=== PATIENT | male | born 1945 | race Caucasian/White ===

== ENCOUNTER 2016-12-28 08:33 | Inpatient (IN) ==
[2016-12-28] MEDS ORDERED: SODIUM CHLORIDE 0.9% 1,000 ML IV STA ×2 (09:57→11:33)
[2016-12-28] MEDS ORDERED: ONDANSETRON 4 MG/2 ML VIAL IV STA (09:57)
[2016-12-28] MEDS ORDERED: ONDANSETRON 4 MG/2 ML VIAL ONE (10:12)
[2016-12-28 11:07] LABS: Basophils % 0.3 % (0.0-0.8); Eosinophils # 0.1 10*3/uL (0.0-0.87); Eosinophils % 1.3 % (0.00-10.9); Hematocrit 37.6 VOL% (42.0-52.0); Hemoglobin 12.5 GM/DL (14.0-18.0); Immature Granulocytes Absolute 0.08 #; Lymphocytes # 1.5 10*3/uL (1.4-4.0); Lymphocytes % 19.8 % (21.2-54.2); Mean Corpuscular HGB Conc 33.2 GM/DL (32-36); Mean Corpuscular Hemoglobin 30 PG (27-34); Mean Corpuscular Volume 88.9 FL (87-102); Monocytes # 1.3 10*3/uL (0.11-0.8); Monocytes % 17.6 % (1.7-12.7); Neutrophils # 4.6 10*3/uL (1.4-7.4); Platelet Count 137 T/CUMM (130-400); Red Blood Count 4.23 MC/CUMM (3.8-5.5); Red Cell Distribution Width 12.2 % (9.3-17.3); White Blood Count 7.6 T/CUMM (4-12)
[2016-12-28 11:23] LABS: Albumin 2.6 G/DL (3.4-5.0); Bilirubin,Total 0.4 MG/DL (0.2-1.0); Calcium 8.2 MG/DL (8.5-10.1); Osmolality,Calculated 280.3 MOS/KG (273-304); Potassium 3.7 MMOL/L (3.5-5.1); Total Protein 6.5 G/DL (6.4-8.3)
[2016-12-28 11:44] LABS: Eosinophils 1 % (0-10); Lymphocytes 20 % (20-55); Segmented Neutrophils 67 % (50-85); Total Cells Counted 100
[2016-12-28 11:45] LABS: Hypochromasia 1+; Platelet Estimate Adequate
--- NOTE | 2016-12-28 12:15 | Emergency Department Note ---
Henry Beltran Hilary, am scribing for, and in the presence of, Yosi Gregorio MD 09:50. Darline Beltran Charles R, MD, personally performed the services described in this documentation, ascribed by Judy Figueroa in my presence, and it is both accurate and complete 215 . Arrival - Arrival Chief Complaint: Nausea/Vomiting/Diarrhea Stated Complaint: n/v,dehydrated X one week ED Nursing Triage Note: C/o N/V/D-onset one week ago. Reports generalized weakness. Last chemo 3 weeks ago. States this is his third visit for same c/o. Mode of Arrival: Wheelchair Limitations: No Limitations Source: Patient, RN Notes Reviewed Time Seen by Provider: 12/28/16 09:16 - History of Present Illness HPI Narrative: Pt is a 71 y/o male presenting to the ED with c/o vomiting which onset a week ago. Pt states that he was having trouble urinating and so he went to [place] ED and had a catheter in and since he has been vomiting. He confirms vomiting 15 times a day, nausea, diarrhea and has gone back to [place] ED twice with no relief. No other complaints or problems stated in the ED. Pt has a PMHx of HTN and Lung CA. Onset (ago): day(s) Consistency: constant Severity: moderate Severity scale (1-10): 2 Allergies/Adverse Reactions: Allergies Allergy/AdvReac Type Severity Reaction Status Date / Time Penicillins Allergy HIVES Verified 10/30/15 19:39 promethazine [From Phenergan] AdvReac Hallucinati Verified 10/30/15 19:39 ng Home Medications: Home Medications Medication Instructions Recorded Confirmed Type Aspirin [Ecotrin] 81 mg PO DAILY 10/30/15 12/28/16 History Clopidogrel [Plavix] 75 mg PO DAILY 10/30/15 12/28/16 History Terazosin [Hytrin] 2 mg PO BEDTIME 10/30/15 12/28/16 History traMADol TAB [Ultram] 50 mg PO Q6H PRN 10/30/15 12/28/16 History Folic Acid Tab 1 mg PO DAILY 12/28/16 12/28/16 History Metoclopramide Tab [Reglan Tab] 10 mg PO Q6HR 12/28/16 12/28/16 History Prochlorperazine Tab [Compazine 10 mg PO Q6H PRN 12/28/16 12/28/16 History Tab] Zolpidem Tartrate [Zolpidem 10 mg PO BEDTIME 12/28/16 12/28/16 History Tartrate] Review of System - Review of System 12 point system: reviewed and no additional remarkable complaints except as stated - Review of System Constitutional: Absent: fever Gastrointestinal: Present: nausea, vomiting, diarrhea. Absent: abdominal pain Medical,Surgical,& Family Hx - Medical History Cardio: History of: Hypertension Respiratory: History of: Lung Cancer (x2) Gastrointestinal: History of: GERD, GI Problems (prior colon ca) - Surgical History Cardiac Surgeries: Sugical HX of: Cardiac Surgery (cabg 2003) Thoracic Surgeries: Surgical HX of;: Lobectomy (right center and top lob removed 2013) Abdominal Surgeries: Surgical HX of: Appendectomy - Social History Smoking Status: Former smoker Frequency of Alcohol Use: None Type of Drug Use: None Exam Vital Signs: Vital Signs Temperature 98.1 F 12/28/16 08:54 Pulse Rate 80 12/28/16 12:00 Respiratory Rate 18 12/28/16 12:00 Blood Pressure 128/56 12/28/16 12:00 O2 Sat by Pulse Oximetry 100 12/28/16 12:00 - General General appearance: alert, in no apparent distress - Head Head exam: Present: atraumatic, normocephalic - Eye Eye exam: Present: PERRL, EOMI. Absent: normal appearance (sunken orbitals) - ENT ENT exam: Present: mucous membranes dry, TM's normal bilaterally. Absent: mucous membranes moist - Neck Neck exam: Present: full ROM, trachea midline. Absent: tenderness - Chest Chest inspection: Present: symmetric chest wall rise. Absent: tenderness - Respiratory Respiratory exam: Absent: normal lung sounds bilaterally (decreased lung sounds ), respiratory distress - Cardiovascular Cardiovascular exam: Present: regular rate, normal rhythm, normal heart sounds. Absent: murmur, rubs, gallop - Abdominal Exam Abdominal exam: Present: soft, normal bowel sounds. Absent: distention, tenderness - Extremities Exam Extremities exam: Present: full ROM. Absent: tenderness, pedal edema - Back Exam Back exam: Present: full ROM, tenderness - Neurological Exam Neurological exam: Present: alert, oriented X3, CN II-XII intact. Absent: motor sensory deficit - Psychiatric Psychiatric exam: Present: normal affect, normal mood - Skin Skin exam: Present: warm, dry, intact, normal color, other (poor skin turgor). Absent: rash Course - Consultations Consultation #1: Dr Kimball will admit patient for nausea vomiting Time: 12:23 Results - Labs CBC & BMP: 12/28/16 09:36 12/28/16 09:36 Lab Results: I have reviewed the patients labs Labs: Laboratory Tests 12/28/16 12/28/16 09:36 09:36 WBC 7.6 RBC 4.23 Hgb 12.5 L Hct 37.6 L Plt Count 137 Lymph % (Auto) 19.8 L [place] % (Auto) 17.6 H [place] # (Auto) 1.3 H Magnesium 2.5 H Laboratory Tests 12/28/16 12/28/16 09:36 09:36 Total Counted 100 Segmented Neutrophils 67 Lymphocytes 20 Monocytes 12 Eosinophils 1 Platelet Estimate Adequate Hypochromasia 1+ Sodium 141 Potassium 3.7 Chloride 105 Carbon Dioxide 28 BUN 14 Calcium 8.2 L ALT 15 L Total Protein 6.5 Albumin 2.6 L Globulin 3.9 H Albumin/Globulin Ratio 0.6 L Disposition Clinical Impression: History of lung cancer, Intractable nausea and vomiting Case discussed with: patient, patient's family Disposition: Still a Patient Condition: Stable Time of Disposition: 12:23
--- NOTE | 2016-12-28 13:40 | CT Report ---
CT of the head without contrast. Indication: Generalized weakness. Nausea and vomiting. History of lung cancer. There is heavy calcific plaque present within the intracranial internal carotid arteries. There is generalized prominence of the ventricles and sulci consistent with atrophy of aging. There are areas of low density in the periventricular white matter consistent with chronic microvascular ischemia. There is no mass effect, midline shift, or area of acute hemorrhage. The calvarium is intact. The mastoid air cells are clear. Mild mucosal thickening in the ethmoid sinuses. Impression: Mild paranasal sinus disease. Aging changes of the brain. The CT exam was performed using one or more of the following dose reduction techniques: Automated exposure control, adjustment of the mA and/or kV according to patient size, or use of iterative reconstruction technique. PROCEDURE INTERPRETED AT [facility] DEPARTMENT OF RADIOLOGY Final Report Signed by: Dr. Shelby Dwyer
[2016-12-28 13:46] LABS: Troponin I Only < 0.015 NG/ML (0.00-0.045)
[2016-12-28] MEDS ORDERED: BENZTROPINE 2 MG/2 ML AMP IV PRN (14:22)
[2016-12-28] MEDS ORDERED: LACTULOSE 20 GM/30 ML UDCUP PO PRN (14:22)
[2016-12-28] MEDS ORDERED: TEMAZEPAM 7.5 MG CAPSULE PO PRN (14:22)
[2016-12-28] MEDS ORDERED: ONDANSETRON 4 MG/2 ML VIAL IV PRN (14:22)
[2016-12-28] MEDS ORDERED: PROCHLORPERAZINE 10 MG TABLET PO PRN (14:22)
[2016-12-28] MEDS ORDERED: LOPERAMIDE 2 MG CAPSULE PO PRN ×2 (14:22)
[2016-12-28] MEDS ORDERED: ALUMINUM/MAGNES/SIMETH MAX STR 30 ML UDCUP PO PRN (14:22)
[2016-12-28] MEDS ORDERED: ACETAMINOPHEN 325 MG TABLET PO PRN (14:22)
[2016-12-28] MEDS ORDERED: MAGNESIUM HYDROXIDE SUSP 30 ML UDCUP PO PRN (14:22)
[2016-12-28] MEDS ORDERED: diphenhydrAMINE CAP 25 MG CAPSULE PO PRN (14:22)
[2016-12-28] MEDS ORDERED: guaiFENesin 200 MG/10 ML UDCUP PO PRN (14:22)
[2016-12-28] MEDS ORDERED: traMADol 50 MG TABLET PO PRN ×2 (14:22)
[2016-12-28] MEDS ORDERED: MYLANTA/LIDO VISC 2:1 300 ML BOTTLE SWISH/SWAL PRN (14:22)
[2016-12-28] MEDS ORDERED: MYLANTA/LIDO VISC 2:1 300 ML BOTTLE SWISH/SPIT PRN (14:22)
[2016-12-28] MEDS ORDERED: ALPRAZolam 0.25 MG TABLET PO PRN (14:22)
[2016-12-28] MEDS: SODIUM CHLORIDE 0.9% 1,000 ML IV SCH (14:44)
--- NOTE | 2016-12-28 14:59 | EKG Report ---
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
[2016-12-28 15:28] LABS: Basophils % 0.1 % (0.0-0.8); Eosinophils # 0.1 10*3/uL (0.0-0.87); Eosinophils % 1.4 % (0.00-10.9); Hemoglobin 12.2 GM/DL (14.0-18.0); Immature Granulocytes % 0.9 %; Immature Granulocytes Absolute 0.06 #; Lymphocytes # 1.4 10*3/uL (1.4-4.0); Mean Corpuscular Hemoglobin 30 PG (27-34); Mean Corpuscular Volume 89.4 FL (87-102); Mean Platelet Volume 9.7 FL (9.6-12.0); Monocytes # 1.1 10*3/uL (0.11-0.8); Neutrophils # 4.3 10*3/uL (1.4-7.4); Neutrophils % 61.6 % (38.7-73.9); Platelet Count 155 T/CUMM (130-400); Red Blood Count 4.14 MC/CUMM (3.8-5.5); Red Cell Distribution Width 12.1 % (9.3-17.3); White Blood Count 6.9 T/CUMM (4-12)
[2016-12-28 15:54] LABS: Magnesium 2.2 MG/DL (1.8-2.4)
[2016-12-28 15:56] LABS: Albumin 2.6 G/DL (3.4-5.0); Bilirubin,Total 0.4 MG/DL (0.2-1.0); Calcium 7.6 MG/DL (8.5-10.1); Osmolality,Calculated 279.3 MOS/KG (273-304); Potassium 3.8 MMOL/L (3.5-5.1); Total Protein 6.2 G/DL (6.4-8.3)
[2016-12-28] MEDS ORDERED: DEXAMETHASONE 4 MG/1 ML VIAL IV ONE (16:36)
[2016-12-28] MEDS ORDERED: FOSAPREPITANT 150 MG in SODIUM CHLORIDE 0.9% 100 ML IV ONE (17:30)
[2016-12-28 17:34] LABS: Band Neutrophils 1 % (0-10); Eosinophils 2 % (0-10); Lymphocytes 17 % (20-55); Platelet Estimate Normal; Segmented Neutrophils 73 % (50-85); Total Cells Counted 100
[2016-12-28] MEDS: METOCLOPRAMIDE 10 MG TABLET PO SCH ×2 (18:50→23:52)
[2016-12-28 19:59] LABS: Apearance,Urine CLEAR (Clear); Bilirubin,Urine Negative (Negative); Blood, Urine Negative (Negative); Glucose,Urine (UA) Negative (Negative); Hyaline Casts,Urine 1 /LPF (0-3); Ketones,Urine 5 mg/dL (Negative); Mucus,Urine Occasional /LPF (Occasional); Nitrite,Urine Negative (Negative); Protein,Urine Negative; RBC,Urine 7 /HPF (0-4); Squamous Epithelial Cell,Urine Occasional /HPF (0-10); Urine Color Yellow (Yellow); Urine Specific Gravity 1.017 (1.001-1.035); Urine Urobilinogen < 2.0 EU/DL (0.2-1.0); WBC,Urine 2 /HPF (0-6)
[2016-12-28] MEDS: TERAZOSIN 2 MG CAPSULE PO SCH (20:47)
[2016-12-28] MEDS ORDERED: ZALEPLON 5 MG CAPSULE PO SCH (21:00)
[2016-12-29 05:12] LABS: Basophils % 0.2 % (0.0-0.8); Hematocrit 38.1 VOL% (42.0-52.0); Hemoglobin 12.7 GM/DL (14.0-18.0); Immature Granulocytes Absolute 0.05 #; Lymphocytes # 0.4 10*3/uL (1.4-4.0); Lymphocytes % 8.3 % (21.2-54.2); Mean Corpuscular HGB Conc 33.3 GM/DL (32-36); Mean Corpuscular Hemoglobin 30 PG (27-34); Mean Corpuscular Volume 88.6 FL (87-102); Mean Platelet Volume 9.8 FL (9.6-12.0); Monocytes # 0.1 10*3/uL (0.11-0.8); Neutrophils # 4.5 10*3/uL (1.4-7.4); Neutrophils % 88.5 % (38.7-73.9); Platelet Count 188 T/CUMM (130-400); Red Cell Distribution Width 12.1 % (9.3-17.3); White Blood Count 5.1 T/CUMM (4-12)
[2016-12-29] MEDS: SODIUM CHLORIDE 0.9% 1,000 ML IV SCH ×2 (05:19→17:56)
[2016-12-29] MEDS: METOCLOPRAMIDE 10 MG TABLET PO SCH ×4 (05:26→23:32)
[2016-12-29 06:24] LABS: Band Neutrophils 1 % (0-10); Hypochromasia 1+; Lymphocytes 8 % (20-55); Microcytosis 2+; Platelet Estimate Adequate; Segmented Neutrophils 87 % (50-85); Total Cells Counted 100
--- NOTE | 2016-12-29 06:56 | CT Report ---
CT abdomen pelvis w con Indication: Nausea vomiting abdominal pain, history of lung cancer Comparison: None. Technique: CT of the abdomen and pelvis was performed following administration of intravenous contrast. Coronal and sagittal reformatted images were additionally created and submitted for review. The total DLP is 553.9 mGy*cm. Dose reduction: This CT exam was performed using one or more of the following dose reduction techniques: Automated exposure control, automated adjustment of the mA and/or KV according to patient size, or use of iterative reconstruction technique. Findings: Soft tissue densities within the right lung base appear essentially unchanged from prior and may represent focal atelectasis/scarring or neoplasm. Minimal posterior basilar atelectasis otherwise noted. There is no pleural or pericardial effusion. Median sternotomy wiring is partially imaged. ABDOMEN: Liver/Gallbladder: No abnormal enhancing hepatic lesions. There is no biliary ductal dilatation. No gallstones. Gallbladder is not dilated. Portal vein is patent. Spleen: No acute findings. Pancreas: No acute findings. Adrenals: Within normal limits in appearance. Kidneys: Both kidneys enhance symmetrically. There is normal excretion from both kidneys on delayed images. Both kidneys demonstrate multifocal hypodense lesions which are primarily cortically-based/exophytic and most compatible with cysts. Bowel/mesentery: Small bowel is nondilated. There is no free fluid/air within the abdomen. There is moderate stool throughout the colon which is otherwise unremarkable except for mild gaseous distention noted within the mid abdomen. There is no mesenteric adenopathy. Retroperitoneum: No evidence of aortic aneurysm or significant retroperitoneal adenopathy. PELVIS: No free fluid in the dependent pelvis. No adenopathy. There is marked enlargement of the prostate gland measuring up to 6 cm in the axial plane, which is similar to prior. Bladder is mildly distended but otherwise unremarkable. BONES: No acute or suspicious osseous abnormalities are identified. IMPRESSION: 1. No acute abnormality within the abdomen or pelvis to explain patient's symptoms. 2. Soft tissue density within the right lung base may represent focal atelectasis/scarring or soft tissue lesion. Correlate with history of lung cancer 3. Moderate gaseous distention of colon which is otherwise displaces the filled with stool may represent changes of fecal stasis/constipation. 4. Marked prostatomegaly, similar to prior. 12/29/2016 6:47 AM PROCEDURE INTERPRETED AT [facility] [place] DEPARTMENT OF RADIOLOGY Final Report Signed by: Иван Cool
[2016-12-29] MEDS ORDERED: BISACODYL 5 MG TABLET PO ONE (07:30)
--- NOTE | 2016-12-29 08:09 | Oncology History&Physical ---
Assessment and Plan (1) Intractable nausea and vomiting Status: Acute Assessment and plan: His symptoms have significantly improved since admission. There is no obvious etiology at this time. I again explained to him that this would be extremely rare for these symptoms to develop after 1 dose of Alimta. We will at least keep him in the hospital for another 24 hours for IV fluids and close observation. If he is doing this well tomorrow we could consider discharge home. I do not see a reason to consult GI at this time. If his nausea and vomiting return, I will then reconsider consulting him. Current Visit: Yes (2) History of lung cancer Status: Acute Current Visit: Yes History of Present Illness History of present illness: Mr. Hester is a 71 year old male with metastatic lung cancer who is currently receiving palliative chemotherapy. He was recently started on a new agent called Alimta 2 weeks ago. Shortly after starting Alimta he developed severe nausea and vomiting with weakness which has persisted for almost 2 weeks now. This is highly uncommon with this chemo agent. His symptoms sound most consistent with a GI bug that is unusual for a viral issue to last for 2 weeks. All of his lab work is normal. CT of his head was negative for intracranial metastasis yesterday. He states he feels much better today after receiving IV fluids and parenteral antiemetics. A CT of his abdomen this morning showed no obvious pathology. Home Medications Medication Instructions Recorded Confirmed Type Aspirin [Ecotrin] 81 mg PO DAILY 10/30/15 12/28/16 History Clopidogrel [Plavix] 75 mg PO DAILY 10/30/15 12/28/16 History Terazosin [Hytrin] 2 mg PO BEDTIME 10/30/15 12/28/16 History traMADol TAB [Ultram] 50 mg PO Q6H PRN 10/30/15 12/28/16 History Folic Acid Tab 1 mg PO DAILY 12/28/16 12/28/16 History Metoclopramide Tab [Reglan Tab] 10 mg PO Q6HR PRN 12/28/16 12/28/16 History Prochlorperazine Tab [Compazine 10 mg PO Q6H PRN 12/28/16 12/28/16 History Tab] Zolpidem Tartrate [Zolpidem 10 mg PO BEDTIME PRN 12/28/16 12/28/16 History Tartrate] Allergies Allergy/AdvReac Type Severity Reaction Status Date / Time Penicillins Allergy HIVES Verified 10/30/15 19:39 promethazine [From Phenergan] AdvReac Hallucinati Verified 10/30/15 19:39 ng Medical,Surgical,& Family Hx - Medical History Cardio: History of: Hypertension Respiratory: History of: Lung Cancer (x2) Gastrointestinal: History of: GERD, GI Problems (prior colon ca) - Surgical History Cardiac Surgeries: Sugical HX of: Cardiac Surgery (cabg 2003) Thoracic Surgeries: Surgical HX of;: Lobectomy (right center and top lob removed 2013) Abdominal Surgeries: Surgical HX of: Appendectomy - Social History Smoking Status: Former smoker Frequency of Alcohol Use: None Type of Drug Use: None 12 point system: reviewed and no additional remarkable complaints except as stated - Constitutional Constitutional: Present: fatigue - Gastrointestinal Gastrointestinal: Present: diarrhea, nausea, vomiting. Absent: melena Exam - Constitutional Vitals: Period Temp Pulse Resp BP Sys/Herr Pulse Ox Last 24 Hr 97.2 F-98.3 F 80-104 18-20 93-160/49-75 94-100 General appearance: normal weight, no acute distress - Head Head Exam: Present: normocephalic, atraumatic - Eye Eye Exam: Present: EOMI Pupils: Present: PERRL - ENT ENT exam: Present: normal exam, normal oropharynx - Neck Neck exam: Absent: lymphadenopathy, thyromegaly - Respiratory Respiratory exam: Present: CTAB. Absent: wheezes - Cardiovascular Cardiovascular exam: Present: RRR. Absent: JVD, systolic murmur - GI/Abdominal GI/Abdominal exam: Present: soft. Absent: ascites, distended, firm, mass - Neurological Exam Neurological exam: Present: alert, oriented X3 - Psychiatric Psychiatric exam: Present: normal affect, normal mood - Skin Skin exam: Present: warm, dry Results - Labs CBC & BMP: 12/29/16 04:28 12/28/16 15:14 Lab Results: I have reviewed the past 24 hour labs
[2016-12-29] MEDS: FOLIC ACID 1 MG TABLET PO SCH ×2 (08:55→09:30)
[2016-12-29] MEDS: PANTOPRAZOLE 40 MG VIAL IV SCH (08:55)
[2016-12-29] MEDS: CLOPIDOGREL 75 MG TABLET PO SCH ×2 (08:55→09:30)
[2016-12-29] MEDS: ASPIRIN EC 81 MG TABLET PO SCH ×2 (08:55→09:30)
[2016-12-29] MEDS: TERAZOSIN 2 MG CAPSULE PO SCH (20:47)
[2016-12-29] MEDS ORDERED: CLOPIDOGREL 75 MG TABLET PO SCH (21:00)
[2016-12-29] MEDS ORDERED: ASPIRIN EC 81 MG TABLET PO SCH (21:00)
[2016-12-29] MEDS ORDERED: FOLIC ACID 1 MG TABLET PO SCH (21:00)
[2016-12-30 02:27] LABS: Basophils % 0.1 % (0.0-0.8); Hematocrit 32.5 VOL% (42.0-52.0); Immature Granulocytes % 1.3 %; Immature Granulocytes Absolute 0.17 #; Lymphocytes # 0.9 10*3/uL (1.4-4.0); Lymphocytes % 6.5 % (21.2-54.2); Mean Corpuscular HGB Conc 33.8 GM/DL (32-36); Mean Corpuscular Hemoglobin 29 PG (27-34); Mean Corpuscular Volume 86.9 FL (87-102); Mean Platelet Volume 10.1 FL (9.6-12.0); Monocytes # 1.4 10*3/uL (0.11-0.8); Monocytes % 10.1 % (1.7-12.7); Neutrophils # 11.2 10*3/uL (1.4-7.4); Platelet Count 286 T/CUMM (130-400); Red Blood Count 3.74 MC/CUMM (3.8-5.5); White Blood Count 13.6 T/CUMM (4-12)
[2016-12-30] MEDS: METOCLOPRAMIDE 10 MG TABLET PO SCH (05:45)
[2016-12-30 08:17] VITALS: BP 133/68
[2016-12-30] MEDS: SODIUM CHLORIDE 0.9% 1,000 ML IV SCH (08:31)
--- NOTE | 2016-12-30 08:35 | Discharge Summary ---
Hospital Course - Hospital Course Hospital Course: Mr. Hester is a 71-year-old white male with metastatic lung cancer currently on second line palliative chemotherapy. He received his first dose of Alimta approximately 2-1/2 weeks ago. Shortly after the Alimta he developed severe nausea and vomiting with weakness that lasted for approximately 2 weeks. His symptoms were more in line with viral gastroenteritis. We attempted to manage him as an outpatient but he required admission to the hospital 3 days ago for IV fluids and treatment of intractable nausea vomiting. With aggressive IV fluid and parenteral antiemetics, his condition rapidly improved. I did a CT of his abdomen to rule out any type of intra-abdominal pathology and it was negative. He is scheduled to have chemotherapy next week and have encouraged him to keep this appointment. He is scheduled to see me in 4 weeks in clinic for routine follow-up. - Time spent with patient Time with patient DS: Greater than 30 minutes Diagnosis - Discharge Diagnosis (1) Intractable nausea and vomiting Status: Acute (2) History of lung cancer Status: Acute Specialty Discharge - Follow Up or Referrals Follow up with: Stephan Kimball MD [Physician] - Discharge Plan - Discharge Data Disposition: Disch To Home/Self Care Condition at Discharge: Stable Hygiene: no restrictions Weight Bearing at Discharge: full weight bearing Driving: no restrictions - Discharge Medications Continue traMADol TAB [Ultram] 50 mg PO Q6H PRN PRN Reason: Pain Clopidogrel [Plavix] 75 mg PO DAILY Aspirin [Ecotrin] 81 mg PO DAILY Terazosin [Hytrin] 2 mg PO BEDTIME Prochlorperazine Tab [Compazine Tab] 10 mg PO Q6H PRN PRN Reason: Nausea/Vomiting Folic Acid Tab 1 mg PO DAILY Zolpidem Tartrate 10 mg PO BEDTIME PRN PRN Reason: Sleep Metoclopramide Tab [Reglan Tab] 10 mg PO Q6HR PRN PRN Reason: Nausea - Follow Up or Referral Follow Up: Stephan Kimball MD [Physician] - - Forms/Instructions Exam - Constitutional Vitals: Period Temp Pulse Resp BP Sys/Herr Pulse Ox Last 24 Hr 97.2 F-98.1 F 69-80 18-20 121-144/61-68 94-97 Discharge Results Labs on day of discharge: Labs from last 24 hours 12/30/16 12/30/16 08:01 01:21 WBC 13.6 H D RBC 3.74 L Hgb 11.0 L Hct 32.5 L MCV 86.9 L MCH 29 MCHC 33.8 RDW 12.0 Plt Count 286 D MPV 10.1 Neut % (Auto) 82.0 H Lymph % (Auto) 6.5 L [place] % (Auto) 10.1 Eos % (Auto) 0.0 Baso % (Auto) 0.1 Neut # (Auto) 11.2 H Lymph # (Auto) 0.9 L [place] # (Auto) 1.4 H Eos # (Auto) 0.0 Baso # (Auto) 0.0 Immature Gran % 1.3 Nucleated RBC % 0.0 Immature Gran # 0.17 Nucleated RBCs # 0.00 POC Glucose 124 H DS: Provider Date of admission: 12/28/16 13:08 Primary care physician: . No PCP Attending physician on admission: Stephan Kimball MD Consults: 12/28/16 15:33 Consult to Dietitian [CONS] Routine Reason for Dietitian: Diet Instruction Discharging clinician: Stephan Kimball MD
[2016-12-30] MEDS ORDERED: HEPARIN LOCK FLUSH 500 UNIT/5 ML SYRINGE IV PRN (08:38)
[2016-12-30] MEDS: PANTOPRAZOLE 40 MG VIAL IV SCH (09:34)
== END 2016-12-30 11:00 | disposition home or self-care (01) | DRG 392 ==
LOC: N.ED 08:33 → N.EDINP 13:08 → N.4E 14:00
PROVIDERS: ADMIT Specialist; ATTEND Specialist

== ENCOUNTER 2017-01-03 16:38 | Inpatient (IN) ==
[2017-01-03] MEDS ORDERED: LACTATED RINGERS 1,000 ML IV ONE (17:05)
[2017-01-03] MEDS ORDERED: ONDANSETRON 4 MG/2 ML VIAL IV STA (17:06)
[2017-01-03] MEDS ORDERED: ONDANSETRON 4 MG/2 ML VIAL ONE (17:51)
[2017-01-03 18:00] LABS: Amorphous Crystals,Urine Occasional /HPF (Few); Apearance,Urine CLEAR (Clear); Bacteria,Urine Occasional /HPF (Few); Bilirubin,Urine Negative (Negative); Blood, Urine Negative (Negative); Glucose,Urine (UA) Negative (Negative); Ketones,Urine Negative (Negative); Mucus,Urine Occasional /LPF (Occasional); Nitrite,Urine Negative (Negative); Protein,Urine Negative; RBC,Urine 2 /HPF (0-4); Urine Color Yellow (Yellow); Urine Specific Gravity 1.016 (1.001-1.035); Urine Urobilinogen < 2.0 EU/DL (0.2-1.0); WBC,Urine 1 /HPF (0-6)
[2017-01-03 18:05] LABS: Barbiturates Screen,Urine Negative (Negative); Benzodiazepines Screen,Urine Positive (Negative); Cannabinoid Screen,Urine Negative (Negative); Opiate Screen,Urine Negative (Negative); Phencyclidine Screen,Urine Negative (Negative)
[2017-01-03 18:12] LABS: Basophils % 0.3 % (0.0-0.8); Eosinophils # 0.2 10*3/uL (0.0-0.87); Eosinophils % 1.6 % (0.00-10.9); Hematocrit 40.7 VOL% (42.0-52.0); Hemoglobin 13.2 GM/DL (14.0-18.0); Immature Granulocytes % 2.2 %; Lymphocytes # 1.5 10*3/uL (1.4-4.0); Lymphocytes % 16.2 % (21.2-54.2); Mean Corpuscular HGB Conc 32.4 GM/DL (32-36); Mean Corpuscular Hemoglobin 29 PG (27-34); Mean Corpuscular Volume 90.4 FL (87-102); Mean Platelet Volume 8.9 FL (9.6-12.0); Monocytes # 1.9 10*3/uL (0.11-0.8); Neutrophils # 5.4 10*3/uL (1.4-7.4); Neutrophils % 58.7 % (38.7-73.9); Platelet Count 677 T/CUMM (130-400); Red Cell Distribution Width 13.2 % (9.3-17.3); White Blood Count 9.3 T/CUMM (4-12)
[2017-01-03 18:34] LABS: Eosinophils 2 % (0-10); Lymphocytes 15 % (20-55); Macrocytosis Slight; Platelet Estimate Increased; Segmented Neutrophils 68 % (50-85); Total Cells Counted 100
[2017-01-03 18:36] LABS: Albumin 3.1 G/DL (3.4-5.0); Bilirubin,Total 0.8 MG/DL (0.2-1.0); Calcium 8.8 MG/DL (8.5-10.1); Osmolality,Calculated 271.8 MOS/KG (273-304); Potassium 4.2 MMOL/L (3.5-5.1); Total Protein 7.3 G/DL (6.4-8.3)
[2017-01-03] MEDS ORDERED: metroNIDAZOLE INJ 500 MG in PREMIX 1 EACH IV STA (19:24)
--- NOTE | 2017-01-03 19:25 | Emergency Department Note ---
I, Pattie Walton, am scribing for, and in the presence of, Artemio Rosario MD 17:12. IAbraham Hans, MD, personally performed the services described in this documentation, ascribed by Pattie Walton in my presence, and it is both accurate and complete . Arrival - Arrival Chief Complaint: Nausea/Vomiting/Diarrhea Stated Complaint: DEHYDRATED, VOMITING ED Nursing Triage Note: c/o n/v onset about 2 and half weeks ago. pt has admit in the hospital monday of last week for the same thing. pt was also seen monday and monday night for the same thing. pt states is worse now. last chemo was [address] coello said that the n/v was not because of the chemo meds Mode of Arrival: Wheelchair Limitations: No Limitations Source: Patient Time Seen by Provider: 01/03/17 16:59 - History of Present Illness HPI Narrative: Pt is a 71 y/o male who came to ED with c/o N/V/D and generalized weakness that has been ongoing for 2 weeks now. Pt notes having diarrhea, for the past 3-4 days, that is light brown with foul smell and clear emesis, but denies blood in either. Pt reports not able to walk much due to severe weakness. Pt has lung CA and last chemo tx was 3 weeks ago. Pt was hospitalized one week ago for 3 days and d/c home. He was also in the ED Monday and again on Monday for the same sxs as today, in which was found to have anxiety of general dx of lung CA. Pt states Dr. Coello told him the dosage of chemo he is on should not make him have these sxs. Pt denies hx of bacteria in colon but did have colon CA in the past. CT chest on 01/01/17 showed: No evidence of pulmonary embolism with suboptimal contrast in the subsegmental pulmonary arteries. Status post median sternotomy with coronary artery calcifications. The wall of the esophagus appears more thickened in the mild esophagus appears more thickened in the mid esophagus location which could be related to esophagitis, radiation effect, etc. Progressive bullous emphysema with chronic scarring in patient with prior right thoractomy. Progressive parenchymal findings which could be related to pneumonia but it is difficult to exclude progressive pleural based masses and follow up PET/CT may be helpful for further evaluation in patient with carcinoma of the lung. ) Onset (ago): week(s) Consistency: constant Severity: mild Severity scale (1-10): 3 Quality: aching Allergies/Adverse Reactions: Allergies Allergy/AdvReac Type Severity Reaction Status Date / Time Penicillins Allergy HIVES Verified 01/01/17 10:54 promethazine [From Phenergan] AdvReac Hallucinati Verified 01/01/17 10:54 ng Home Medications: Home Medications Medication Instructions Recorded Confirmed Type Aspirin [Ecotrin] 81 mg PO DAILY 10/30/15 01/03/17 History Clopidogrel [Plavix] 75 mg PO DAILY 10/30/15 01/03/17 History Terazosin [Hytrin] 2 mg PO BEDTIME 10/30/15 01/03/17 History traMADol TAB [Ultram] 50 mg PO Q6H PRN 10/30/15 01/03/17 History Folic Acid Tab 1 mg PO DAILY 12/28/16 01/03/17 History Metoclopramide Tab [Reglan Tab] 10 mg PO Q6HR PRN 12/28/16 01/03/17 History Prochlorperazine Tab [Compazine 10 mg PO Q6H PRN 12/28/16 01/03/17 History Tab] Zolpidem Tartrate 10 mg PO BEDTIME PRN 12/28/16 01/03/17 History ALPRAZolam [Xanax] 0.25 mg PO DAILY PRN #20 tablet 01/01/17 01/03/17 Rx Review of System - Review of System 12 point system: reviewed and no additional remarkable complaints except as stated - Review of System Constitutional: Present: weakness (generalized). Absent: fever Respiratory: Absent: respiratory distress Cardiovascular: Absent: chest pain Gastrointestinal: Present: nausea, vomiting, diarrhea. Absent: abdominal pain, constipation, hematemesis, melena Genitourinary male: Absent: hematuria Skin: Absent: rash Neurological: Present: abnormal gait (due to weakness). Absent: headache, numbness, paresthesias, confusion Medical,Surgical,& Family Hx - Medical History Cardio: History of: CAD, Hypertension Neurology: No history of: Cerebral Hemorrhage Endocrine: No history of: Diabetes Mellitus (IDDM), Diabetes Mellitus (NIDDM) Respiratory: History of: COPD, Lung Cancer (x2) No history of: Pulmonary Embolism Renal: No history of: Renal Failure Genitourinary: No history of: Problems Gastrointestinal: History of: GERD, GI Problems (prior colon ca) Musculoskeletal: No history of: Degenerative Disk Disease Hematology: No history of: Bleeding Problems, Clotting Problems - Surgical History Cardiac Surgeries: Sugical HX of: Cardiac Surgery (cabg 2003) Thoracic Surgeries: Surgical HX of;: Lobectomy (right center and top lob removed 2013) Neurologic Surgeries: Patient denies: Cerebral Hemorrhage Abdominal Surgeries: Surgical HX of: Appendectomy, Colonoscopy - Family History Family History: Denies;: Family Cancer - Social History Smoking Status: Former smoker Frequency of Alcohol Use: None Type of Drug Use: None Marital Status: Single Functional capacity: independent ambulation Exam Vital Signs: Vital Signs Temperature 98.0 F 01/03/17 17:01 Pulse Rate 93 H 01/03/17 18:00 Respiratory Rate 18 01/03/17 18:00 Blood Pressure 115/70 01/03/17 18:00 O2 Sat by Pulse Oximetry 95 01/03/17 18:00 - General General appearance: alert, in no apparent distress - Head Head exam: Present: atraumatic, normocephalic - Eye Eye exam: Present: PERRL, EOMI - ENT ENT exam: Present: mucous membranes moist. Absent: mucous membranes dry - Neck Neck exam: Present: full ROM. Absent: tenderness - Chest Chest inspection: Present: symmetric chest wall rise. Absent: tenderness - Respiratory Respiratory exam: Present: normal lung sounds bilaterally. Absent: respiratory distress - Cardiovascular Cardiovascular exam: Present: regular rate, normal rhythm, normal heart sounds - Abdominal Exam Abdominal exam: Present: soft, normal bowel sounds. Absent: distention, tenderness, guarding, rebound - Extremities Exam Extremities exam: Present: full ROM. Absent: tenderness, pedal edema - Neurological Exam Neurological exam: Present: alert, oriented X3, CN II-XII intact. Absent: motor sensory deficit - Psychiatric Psychiatric exam: Present: normal affect, normal mood - Skin Skin exam: Present: warm, dry Course Course Narrative: This patient was evaluated in the ER with lab work as well as urinalysis and plain films of the abdomen and chest. There is nothing acute that was seen on these tests but he was having some diarrhea and a C. difficile was ordered but not done because he did not have any diarrhea in the ER. Because of the severity of his nausea and some enteritis on the x-ray I discussed this with Dr. Dang who agreed to admit him for IV fluids and treatment with Flagyl until the C. difficile has returned. The patient will be admitted to the oncology floor. Results - Labs CBC & BMP: 01/03/17 17:46 01/03/17 17:46 Lab Results: I have reviewed the patients labs Labs: Laboratory Tests 01/03/17 01/03/17 01/03/17 17:46 17:46 17:46 WBC 9.3 RBC 4.50 Hgb 13.2 L Hct 40.7 L Plt Count 677 H MPV 8.9 L Lymph % (Auto) 16.2 L [place] % (Auto) 21.0 H [place] # (Auto) 1.9 H Urine Color Yellow Urine Appearance Clear Urine pH 6.0 Ur Specific [place] 1.016 Urine Blood Negative Urine Urobilinogen < 2.0 H Urine RBC 2 Urine WBC 1 Amorphous Crystals Occasional Urine Bacteria Occasional Urine Mucus Occasional U Benzodiazepines Scrn Positive H Laboratory Tests 01/03/17 01/03/17 17:46 17:46 Lymphocytes 15 L Platelet Estimate Increased Macrocytosis Slight Sodium 137 Potassium 4.2 Chloride 104 Carbon Dioxide 25 Calculated Osmolality 271.8 L Albumin 3.1 L Globulin 4.2 H Albumin/Globulin Ratio 0.7 L Lipase 196.0 Disposition Clinical Impression: Gastroenteritis, Dehydration, History of lung cancer, Intractable nausea and vomiting Case discussed with: patient, patient's family Disposition: Still a Patient Condition: Stable Instructions: Dehydration (ED), Gastroenteritis (ED) Time of Disposition: 19:25
--- NOTE | 2017-01-03 19:38 | XRay Report ---
XR abdomen 2V Indication: Nausea Comparison: Abdominal x-ray dated October 30, 2015 Technique: Frontal views of the abdomen in the supine and upright position. Findings: Nonspecific bowel gas pattern. Scattered air-fluid levels within the small bowel as well as mild to moderate gaseous distention of the transverse colon could reflect gastroenteritis. No free intraperitoneal air. Several small calcific densities project over the right lower quadrant of the abdomen which most likely reflect ingested contents. Surgical suture material and clips noted within the left midabdomen. Visualized osseous and surrounding soft tissue structures appear grossly unchanged. IMPRESSION: As above. PROCEDURE INTERPRETED AT [facility] DEPARTMENT OF RADIOLOGY Final Report Signed by: Dr Miguel A Lemus
--- NOTE | 2017-01-03 19:48 | XRay Report ---
XR chest 2V Indication: Nausea Comparison: Chest x-ray dated March 04, 2017 Technique: Frontal and lateral views of the chest. Findings: Cardiomediastinal silhouette is stable in configuration status post sternotomy. Port catheter appears grossly unchanged with tip projecting or the proximal SVC. Stable changes of prior partial right pneumonectomy again noted with stable right apical capping. Chronic/emphysematous change of the lungs present. There is mild left infrahilar opacification which may reflect atelectasis or early consolidative process such as pneumonia. Visualized osseous and surrounding soft tissue structures appear grossly unchanged. IMPRESSION: Mild left infrahilar opacification suspicious for atelectasis or early consolidative process such as pneumonia. PROCEDURE INTERPRETED AT [facility] DEPARTMENT OF RADIOLOGY Final Report Signed by: Dr Miguel A Lemus
[2017-01-03] MEDS ORDERED: chlorproMAZINE INJ 25 MG in SODIUM CHLORIDE 0.9% 100 ML IV PRN (21:07)
[2017-01-03] MEDS ORDERED: chlorproMAZINE INJ 50 MG in SODIUM CHLORIDE 0.9% 100 ML IV PRN (21:07)
[2017-01-03] MEDS ORDERED: diphenhydrAMINE CAP 25 MG CAPSULE PO PRN (21:07)
[2017-01-03] MEDS ORDERED: ALPRAZolam 0.25 MG TABLET PO PRN (21:07)
[2017-01-03] MEDS ORDERED: guaiFENesin 200 MG/10 ML UDCUP PO PRN (21:07)
[2017-01-03] MEDS ORDERED: LOPERAMIDE 2 MG CAPSULE PO PRN (21:07)
[2017-01-03] MEDS ORDERED: LACTULOSE 20 GM/30 ML UDCUP PO PRN (21:07)
[2017-01-03] MEDS ORDERED: chlorproMAZINE 25 MG TABLET PO PRN (21:07)
[2017-01-03] MEDS ORDERED: MYLANTA/LIDO VISC 2:1 300 ML BOTTLE SWISH/SPIT PRN (21:07)
[2017-01-03] MEDS ORDERED: MYLANTA/LIDO VISC 2:1 300 ML BOTTLE SWISH/SWAL PRN (21:07)
[2017-01-03] MEDS ORDERED: ACETAMINOPHEN 325 MG TABLET PO PRN (21:07)
[2017-01-03] MEDS ORDERED: MAGNESIUM HYDROXIDE SUSP 30 ML UDCUP PO PRN (21:07)
[2017-01-03] MEDS ORDERED: ONDANSETRON 4 MG/2 ML VIAL IV PRN (21:07)
[2017-01-03] MEDS ORDERED: BENZTROPINE 2 MG/2 ML AMP IV PRN (21:07)
[2017-01-03] MEDS ORDERED: traMADol 50 MG TABLET PO PRN (21:07)
[2017-01-03] MEDS: SODIUM CHLORIDE 0.9% 1,000 ML IV SCH (21:30)
[2017-01-03] MEDS: LOPERAMIDE 2 MG CAPSULE PO PRN (21:30)
[2017-01-03] MEDS: TEMAZEPAM 7.5 MG CAPSULE PO PRN (22:26)
[2017-01-04] MEDS: metroNIDAZOLE INJ 500 MG in PREMIX 1 EACH IV SCH ×3 (03:44→20:50)
[2017-01-04] MEDS: ALUMINUM/MAGNES/SIMETH MAX STR 30 ML UDCUP PO PRN (03:52)
[2017-01-04 06:00] LABS: Basophils % 0.2 % (0.0-0.8); Eosinophils # 0.2 10*3/uL (0.0-0.87); Hematocrit 36.5 VOL% (42.0-52.0); Hemoglobin 12.1 GM/DL (14.0-18.0); Immature Granulocytes % 2.3 %; Immature Granulocytes Absolute 0.21 #; Lymphocytes # 1.6 10*3/uL (1.4-4.0); Lymphocytes % 17.4 % (21.2-54.2); Mean Corpuscular HGB Conc 33.2 GM/DL (32-36); Mean Corpuscular Hemoglobin 30 PG (27-34); Mean Corpuscular Volume 90.3 FL (87-102); Mean Platelet Volume 8.7 FL (9.6-12.0); Monocytes % 22.2 % (1.7-12.7); Neutrophils # 5.1 10*3/uL (1.4-7.4); Neutrophils % 55.9 % (38.7-73.9); Platelet Count 573 T/CUMM (130-400); Red Blood Count 4.04 MC/CUMM (3.8-5.5); Red Cell Distribution Width 13.4 % (9.3-17.3); White Blood Count 9.1 T/CUMM (4-12)
[2017-01-04 06:27] LABS: Band Neutrophils 3 % (0-10); Eosinophils 2 % (0-10); Lymphocytes 13 % (20-55); Platelet Estimate Increased; Segmented Neutrophils 65 % (50-85); Total Cells Counted 100
[2017-01-04 06:28] LABS: Hypochromasia Slight; Macrocytosis Slight
[2017-01-04 06:33] LABS: Alanine Aminotransferase 21 U/L (16-61); Albumin 2.8 G/DL (3.4-5.0); Alkaline Phosphatase 87 U/L (45-117); Aspartate Amino Transferase 21 U/L (0-37); Bilirubin,Total < 0.39 MG/DL (0.2-1.0); Blood Urea Nitrogen 12 MG/DL (7-18); Calcium 8.3 MG/DL (8.5-10.1); Glucose 85 MG/DL (74-106); Magnesium 2.6 MG/DL (1.8-2.4); Osmolality,Calculated 275.5 MOS/KG (273-304); Sodium 139 MMOL/L (136-145); Total Protein 6.4 G/DL (6.4-8.3)
[2017-01-04] MEDS ORDERED: PANTOPRAZOLE 40 MG VIAL IV SCH (09:00)
[2017-01-04] MEDS ORDERED: METOCLOPRAMIDE 10 MG TABLET PO PRN (09:17)
[2017-01-04] MEDS ORDERED: PROCHLORPERAZINE 10 MG TABLET PO PRN (09:17)
[2017-01-04] MEDS ORDERED: ALPRAZolam 0.25 MG TABLET PO PRN (09:17)
[2017-01-04] MEDS ORDERED: ZALEPLON 5 MG CAPSULE PO PRN (09:17)
[2017-01-04] MEDS ORDERED: traMADol 50 MG TABLET PO PRN (09:17)
--- NOTE | 2017-01-04 09:24 | Oncology History&Physical ---
Assessment and Plan (1) Lung cancer Status: Acute Assessment and plan: This patient has generalized and nonspecific symptoms. I will evaluate for an occult endocrinopathy given the history of immunotherapy with TSH and cortisol levels today. His tilt blood pressure testing appears normal. No significant lab abnormalities are appreciated. I will give IV fluids and oral diet as tolerated. We briefly discussed nasogastric feeding though he seemed to decline this. Current Visit: Yes History of Present Illness Chief complaint: Weakness History of present illness: Mr. Hester is a 71 year old male With right sided lung cancer under treatment by Dr. quijano. The patient reports his last chemotherapy with pemetrexed around January 15 2 weeks ago. Prior to that he received 3-1/2 months of immunotherapy without Depo. His disease seems confined to the right lung with prior thoracotomy performed by Dr. Che. He apparently had a CT scan in late November though this must of been at [facility] and this is not available to me at this time. He was told there was progression hence the change back to cytotoxic chemotherapy from immunotherapy. Over the last 3 weeks he reports losing 20 pounds of weight. He has had some mild abdominal pain he denies diarrhea or nausea at the present time. Within the last 10 days he is undergone head CT as well as CT chest PE protocol both at [facility]. He was not admitted on that particular occurrence. He does not appear in acute distress but does report basically generalized weakness. He cannot he cannot be any more localizing in his descriptions than that. He does appear lucid and cooperative. Home Medications Medication Instructions Recorded Confirmed Type Aspirin [Ecotrin] 81 mg PO DAILY 10/30/15 01/03/17 History Clopidogrel [Plavix] 75 mg PO DAILY 10/30/15 01/03/17 History Terazosin [Hytrin] 2 mg PO BEDTIME 10/30/15 01/03/17 History traMADol TAB [Ultram] 50 mg PO Q6H PRN 10/30/15 01/03/17 History Folic Acid Tab 1 mg PO DAILY 12/28/16 01/03/17 History Metoclopramide Tab [Reglan Tab] 10 mg PO Q6HR PRN 12/28/16 01/03/17 History Prochlorperazine Tab [Compazine 10 mg PO Q6H PRN 12/28/16 01/03/17 History Tab] Zolpidem Tartrate 10 mg PO BEDTIME PRN 12/28/16 01/03/17 History ALPRAZolam [Xanax] 0.25 mg PO DAILY PRN #20 tablet 01/01/17 01/03/17 Rx Allergies Allergy/AdvReac Type Severity Reaction Status Date / Time Penicillins Allergy HIVES Verified 01/01/17 10:54 promethazine [From Phenergan] AdvReac Hallucinati Verified 01/01/17 10:54 ng Medical,Surgical,& Family Hx - Medical History Cardio: History of: CAD, Hypertension Neurology: No history of: Cerebral Hemorrhage Endocrine: No history of: Diabetes Mellitus (IDDM), Diabetes Mellitus (NIDDM) Respiratory: History of: COPD, Lung Cancer (x2) No history of: Pulmonary Embolism Renal: No history of: Renal Failure Genitourinary: No history of: Problems Gastrointestinal: History of: GERD, GI Problems (prior colon ca) Musculoskeletal: No history of: Degenerative Disk Disease Hematology: No history of: Bleeding Problems, Clotting Problems - Surgical History Cardiac Surgeries: Sugical HX of: Cardiac Surgery (cabg 2003) Thoracic Surgeries: Surgical HX of;: Lobectomy (right center and top lob removed 2013) Neurologic Surgeries: Patient denies: Cerebral Hemorrhage Abdominal Surgeries: Surgical HX of: Abdominal Surgery, Appendectomy, Colonoscopy - Family History Family History: Denies;: Family Cancer - Social History Smoking Status: Former smoker Frequency of Alcohol Use: None Type of Drug Use: None - Constitutional Constitutional: Present: fatigue, weakness, weight loss. Absent: chills, fever( s), night sweats, weight gain - EENT Eye: Absent: diplopia, loss of vision Ears: Absent: ear discharge, ear pain Nose, mouth and throat: Absent: neck mass, neck pain, odynophagia, sore throat - Cardiovascular Cardiovascular ROS IM: Absent: edema, orthopnea - Respiratory Respiratory: Absent: hemoptysis - Gastrointestinal Gastrointestinal: Present: early satiety. Absent: dysphagia, melena - Neurological Neurological ROS: Absent: dizziness, focal weakness, memory loss - Hematologic/Lymphatic Hematologic/Lymphatic: Absent: easy bleeding Exam - Constitutional Vitals: Period Temp Pulse Resp BP Sys/Herr Pulse Ox Last 24 Hr 98 F-98.5 F 85-99 18-20 102-135/56-85 93-97 General appearance: no acute distress, under weight - Head Head Exam: Present: normal inspection, normocephalic, atraumatic, other ( Positive temporal wasting) - Eye Eye Exam: Present: EOMI. Absent: conjunctival injection Pupils: Present: PERRL - ENT ENT exam: Present: normal external ear exam - Neck Neck exam: Present: normal inspection. Absent: lymphadenopathy - Respiratory Respiratory exam: Present: CTAB. Absent: accessory muscle use, chest wall tenderness - Cardiovascular Cardiovascular exam: Present: RRR. Absent: systolic murmur - GI/Abdominal GI/Abdominal exam: Absent: ascites, distended, firm, guarding - Neurological Exam Neurological exam: Present: alert, oriented X3 - Skin Skin exam: Present: warm, dry Results - Labs CBC & BMP: 01/04/17 05:52 01/04/17 05:52
[2017-01-04 09:55] LABS: Free T4 (Free Thyroxine) 1.26 NG/DL (0.76-1.46); Thyroid Stimulating Hormone 2.7 uIU/ml (0.358-3.74)
[2017-01-04] MEDS: CLOPIDOGREL 75 MG TABLET PO SCH (10:31)
[2017-01-04] MEDS: ASPIRIN EC 81 MG TABLET PO SCH (10:32)
[2017-01-04] MEDS: FOLIC ACID 1 MG TABLET PO SCH (10:32)
[2017-01-04] MEDS: LOPERAMIDE 2 MG CAPSULE PO PRN (16:52)
[2017-01-04] MEDS: TEMAZEPAM 7.5 MG CAPSULE PO PRN (20:50)
[2017-01-04] MEDS: SODIUM CHLORIDE 0.9% 1,000 ML IV SCH (20:50)
[2017-01-04] MEDS: TERAZOSIN 2 MG CAPSULE PO SCH (20:50)
[2017-01-05] MEDS: ALUMINUM/MAGNES/SIMETH MAX STR 30 ML UDCUP PO PRN (00:29)
[2017-01-05] MEDS: metroNIDAZOLE INJ 500 MG in PREMIX 1 EACH IV SCH (03:54)
--- NOTE | 2017-01-05 08:47 | Oncology Progress Note ---
Assessment and Plan (1) Lung cancer Status: Acute Assessment and plan: This patient has generalized and nonspecific symptoms. I will evaluate for an occult endocrinopathy given the history of immunotherapy with TSH and cortisol levels today. His tilt blood pressure testing appears normal. No significant lab abnormalities are appreciated. I will give IV fluids and oral diet as tolerated. We briefly discussed nasogastric feeding though he seemed to decline this. Current Visit: Yes Oncology Subjective PN Interval history: Patient with non-small cell lung cancer admitted with generalized weakness. He is still having mild diarrhea. I am going to hold Reglan and add Protonix. We will change Flagyl to p.o. His thyroid and adrenal studies are normal. I anticipate discharge tomorrow. He has mild abdominal distention but no tenderness or guarding on palpation. Exam - Constitutional Vitals: Period Temp Pulse Resp BP Sys/Herr Pulse Ox Last 24 Hr 97.8 F-98.8 F 81-98 18-20 102-148/55-69 92-95 Results - Labs CBC & BMP: 01/04/17 05:52 01/04/17 05:52 Specialty Discharge - Follow Up or Referrals
[2017-01-05] MEDS: FOLIC ACID 1 MG TABLET PO SCH (09:34)
[2017-01-05] MEDS: CLOPIDOGREL 75 MG TABLET PO SCH (09:34)
[2017-01-05] MEDS: ASPIRIN EC 81 MG TABLET PO SCH (09:34)
[2017-01-05] MEDS: PANTOPRAZOLE 40 MG TABLET PO SCH (09:34)
[2017-01-05] MEDS: metroNIDAZOLE 500 MG TABLET PO SCH ×3 (10:18→22:42)
[2017-01-05] MEDS: SODIUM CHLORIDE 0.9% 1,000 ML IV SCH (17:40)
[2017-01-05] MEDS: TERAZOSIN 2 MG CAPSULE PO SCH (20:13)
[2017-01-05] MEDS: TEMAZEPAM 7.5 MG CAPSULE PO PRN (20:18)
[2017-01-06] MEDS: metroNIDAZOLE 500 MG TABLET PO SCH ×5 (03:43→21:00)
[2017-01-06] MEDS: FOLIC ACID 1 MG TABLET PO SCH (08:38)
[2017-01-06] MEDS: PANTOPRAZOLE 40 MG TABLET PO SCH (08:38)
[2017-01-06] MEDS: CLOPIDOGREL 75 MG TABLET PO SCH (08:38)
[2017-01-06] MEDS: ASPIRIN EC 81 MG TABLET PO SCH (08:39)
--- NOTE | 2017-01-06 09:19 | Discharge Summary ---
Hospital Course - Hospital Course Hospital Course: Patient with non-small cell lung cancer admitted with generalized weakness. He had some degree of abdominal pain as well. The patient was given metronidazole initially IV and p.o. He is tolerating regular diet with regular bowel function at this time. He had acceptable cortisol and TSH levels during this admission. He has received low rate IV fluids and plans are for discharge on the morning of 722. His physical exam shows clear breath sounds bilaterally. Appropriate mental status. Nontender abdomen with normoactive bowel sounds. No ascites no guarding or rebound Diagnosis - Discharge Diagnosis (1) Lung cancer Status: Acute Specialty Discharge - Follow Up or Referrals Discharge Plan - Discharge Medications No Action traMADol TAB [Ultram] 50 mg PO Q6H PRN PRN Reason: Pain Clopidogrel [Plavix] 75 mg PO DAILY Aspirin [Ecotrin] 81 mg PO DAILY Terazosin [Hytrin] 2 mg PO BEDTIME Prochlorperazine Tab [Compazine Tab] 10 mg PO Q6H PRN PRN Reason: Nausea/Vomiting Folic Acid Tab 1 mg PO DAILY ALPRAZolam [Xanax] 0.25 mg PO DAILY PRN #20 tablet PRN Reason: Anxiety Zolpidem Tartrate 10 mg PO BEDTIME PRN PRN Reason: Sleep Metoclopramide Tab [Reglan Tab] 10 mg PO Q6HR PRN PRN Reason: Nausea - Follow Up or Referral - Forms/Instructions Instructions: Dehydration (ED), Gastroenteritis (ED) Exam - Constitutional Vitals: Period Temp Pulse Resp BP Sys/Herr Pulse Ox Last 24 Hr 97.7 F-98.6 F 84-90 20-20 104-125/54-63 91-98 Discharge Results Procedures and tests throughout hospitalization: Pending Orders 01/03/17 17:05 Stool Culture/Campy/Yersinia Stat Labs on day of discharge: Preliminary micro results at discharge 01/04/17 11:45 Stool Culture - Preliminary Stool No enteric pathogens at 24 hrs DS: Provider Date of admission: 01/03/17 19:21 Primary care physician: . No PCP Attending physician on admission: Stephan Kimball MD Consults: 01/03/17 23:44 Consult to Dietitian [CONS] Routine Reason for Dietitian: Diet Recommendations Consult to Pastoral Services [CONS] Routine Comment: Pastoral Screen: Request Health Underwriter Visit Pastoral Screen Source of Request: Patient Discharging clinician: Paramjit Dang MD
[2017-01-06] MEDS: SODIUM CHLORIDE 0.9% 1,000 ML IV SCH ×2 (10:15→22:02)
[2017-01-06] MEDS: TERAZOSIN 2 MG CAPSULE PO SCH (20:16)
[2017-01-06] MEDS: TEMAZEPAM 7.5 MG CAPSULE PO PRN (20:19)
[2017-01-06] MEDS: ALUMINUM/MAGNES/SIMETH MAX STR 30 ML UDCUP PO PRN (23:41)
[2017-01-07] MEDS: metroNIDAZOLE 500 MG TABLET PO SCH (04:19)
[2017-01-07] MEDS: ASPIRIN EC 81 MG TABLET PO SCH (08:08)
[2017-01-07] MEDS: FOLIC ACID 1 MG TABLET PO SCH (08:08)
[2017-01-07] MEDS: CLOPIDOGREL 75 MG TABLET PO SCH (08:08)
[2017-01-07] MEDS: PANTOPRAZOLE 40 MG TABLET PO SCH (08:08)
[2017-01-07 08:16] VITALS: BP 128/61
[2017-01-07] MEDS ORDERED: HEPARIN LOCK FLUSH 500 UNIT/5 ML SYRINGE IV ONE (09:38)
== END 2017-01-07 10:10 | disposition home or self-care (01) | DRG 641 ==
LOC: N.ED 16:38 → N.EDINP 19:21 → N.4E 20:09
PROVIDERS: ADMIT Specialist; ATTEND Specialist

== ENCOUNTER 2017-03-15 18:43 | Inpatient (IN) ==
[2017-03-15] MEDS ORDERED: methylPREDNISolone SOD SUC 125 MG/2 ML VIAL IV STA (19:14)
[2017-03-15] MEDS ORDERED: ONDANSETRON 4 MG/2 ML VIAL IV STA (19:14)
[2017-03-15] MEDS ORDERED: SODIUM CHLORIDE 0.9% 1,000 ML IV STA (19:14)
[2017-03-15] MEDS ORDERED: ALBUTEROL 2.5 MG/3 ML NEB RESP TX SCH (19:30)
[2017-03-15] MEDS ORDERED: ONDANSETRON 4 MG/2 ML VIAL ONE (19:43)
[2017-03-15 19:59] LABS: INR 1.1; PT Patient Result 12.1 SECS
[2017-03-15 20:06] LABS: Basophils # 0.1 10*3/uL (0.0-0.2); Basophils % 2.1 % (0.0-0.8); Eosinophils # 0.1 10*3/uL (0.0-0.87); Eosinophils % 2.1 % (0.00-10.9); Hemoglobin 10.7 GM/DL (14.0-18.0); Immature Granulocytes % 0.5 %; Immature Granulocytes Absolute 0.03 #; Lymphocytes # 2.6 10*3/uL (1.4-4.0); Lymphocytes % 45.7 % (21.2-54.2); Mean Corpuscular HGB Conc 32.4 GM/DL (32-36); Mean Corpuscular Hemoglobin 30 PG (27-34); Mean Corpuscular Volume 92.7 FL (87-102); Monocytes # 1.4 10*3/uL (0.11-0.8); Neutrophils # 1.4 10*3/uL (1.4-7.4); Neutrophils % 24.6 % (38.7-73.9); Platelet Count 365 T/CUMM (130-400); Red Blood Count 3.56 MC/CUMM (3.8-5.5); Red Cell Distribution Width 14.5 % (9.3-17.3); White Blood Count 5.8 T/CUMM (4-12)
--- NOTE | 2017-03-15 20:10 | Emergency Department Note ---
IIsabelle Emily, am scribing for, and in the presence of, Yosi Gregorio MD 19: 23. Darline Beltran Charles R, MD, personally performed the services described in this documentation, ascribed by Pattie Walton in my presence, and it is both accurate and complete . Arrival - Arrival Chief Complaint: Shortness of Breath Stated Complaint: low bp and SOB ED Nursing Triage Note: pt to triage via wc with c/o having sob and low bp onset last night. pt does have stage 4 LUng Ca. Mode of Arrival: Wheelchair Limitations: No Limitations Source: Patient, Significant other Time Seen by Provider: 03/15/17 19:08 - History of Present Illness HPI Narrative: Pt is a 72 y/o male who came to ED with c/o low BP that has started last night that would not increase today and SOB started this afternoon. Pt reports vomiting when they were leaving the house to come to ED, in gross amount. Pt notes his BP was 90/40 this morning, then 94/50 but did not go any higher and has ate lunch. Spouse reports he has had diarrhea and a productive cough. Family reports him having an unsteady balance and he states having some dizziness but denies confusion. He has had decreased PO intake but had weight loss of 40 lbs during kidney infection 2 months ago. Pt was havig trouble urinating and was given a grossman cath by Dr. Rodriguez and self taught to do at home. He states at home replacing it once at home he was able to urinate profusely since and has been with cath since, that output is nml. PMhx of Stage IV Lung CA with two lobes bilaterally removed, undergoing chemo but no radiation. Spouse notes pt is sleeping more as well. Onset (ago): day(s) Consistency: constant Severity: mild, moderate Severity scale (1-10): 4 Quality: other (lowered) Allergies/Adverse Reactions: Allergies Allergy/AdvReac Type Severity Reaction Status Date / Time Penicillins Allergy HIVES Verified 02/03/17 05:16 promethazine [From Phenergan] AdvReac Hallucinati Verified 02/03/17 05:16 ng Home Medications: Home Medications Medication Instructions Recorded Confirmed Type Aspirin [Ecotrin] 81 mg PO BEDTIME 10/30/15 03/15/17 History Clopidogrel [Plavix] 75 mg PO BEDTIME 10/30/15 03/15/17 History Terazosin [Hytrin] 2 mg PO BEDTIME 10/30/15 03/15/17 History Diphenoxylate HCl/Atropine 1 each PO Q6H PRN 03/15/17 03/15/17 History [Diphenoxylate/Atropine 2.5-0.025 mg Tab] Ondansetron HCl [Ondansetron HCl] 8 mg PO Q8H PRN 03/15/17 03/15/17 History Review of System - Review of System 12 point system: reviewed and no additional remarkable complaints except as stated - Review of System Constitutional: Present: other (low BP). Absent: chills, fever Respiratory: Present: respiratory distress (SOB) Cardiovascular: Absent: chest pain Gastrointestinal: Present: nausea, vomiting, diarrhea. Absent: abdominal pain Genitourinary male: Absent: dysuria Musculoskeletal: Absent: arm pain Skin: Absent: rash Neurological: Present: abnormal gait (unsteady), other (dizziness). Absent: headache Medical,Surgical,& Family Hx - Medical History Cardio: History of: CAD, Hypertension, Cardiovascular Problems (open heart surgery 2002) Neurology: No history of: Cerebral Hemorrhage Endocrine: No history of: Diabetes Mellitus (IDDM), Diabetes Mellitus (NIDDM) Respiratory: History of: COPD, Lung Cancer (x2) No history of: Pulmonary Embolism Renal: No history of: Renal Failure Genitourinary: No history of: Problems Gastrointestinal: History of: GERD, GI Problems (prior colon ca) Musculoskeletal: No history of: Degenerative Disk Disease Hematology: No history of: Bleeding Problems, Clotting Problems - Surgical History Cardiac Surgeries: Sugical HX of: Cardiac Surgery (cabg 2003) Thoracic Surgeries: Surgical HX of;: Lobectomy (right center and top lob removed 2013) Neurologic Surgeries: Patient denies: Cerebral Hemorrhage Abdominal Surgeries: Surgical HX of: Abdominal Surgery, Appendectomy, Colonoscopy - Family History Family History: Denies;: Family Cancer - Social History Smoking Status: Former smoker Frequency of Alcohol Use: None Type of Drug Use: None Marital Status: Lives With:: Spouse Functional capacity: independent ambulation Exam Vital Signs: Vital Signs Temperature 98.7 F 03/15/17 19:01 Pulse Rate 104 H 03/15/17 21:00 Respiratory Rate 22 03/15/17 21:00 Blood Pressure 85/62 03/15/17 19:01 O2 Sat by Pulse Oximetry 86 L 03/15/17 21:00 - General General appearance: alert, other (weak in appearance with temporal wasting) - Head Head exam: Present: atraumatic, normocephalic - Eye Eye exam: Present: PERRL, EOMI, other (sunken orbits) - ENT ENT exam: Present: mucous membranes moist. Absent: mucous membranes dry - Neck Neck exam: Present: full ROM, trachea midline - Chest Chest inspection: Present: symmetric chest wall rise - Respiratory Respiratory exam: Present: rhonchi (in right side). Absent: normal lung sounds bilaterally (decreased breath sound on right side until nipple region and nml in lower) - Cardiovascular Cardiovascular exam: Present: tachycardia, normal heart sounds - Abdominal Exam Abdominal exam: Present: soft, normal bowel sounds. Absent: tenderness - Extremities Exam Extremities exam: Present: full ROM, other (general atrophy to extremities secondary to CA). Absent: pedal edema - Neurological Exam Neurological exam: Present: alert, oriented X3, CN II-XII intact - Psychiatric Psychiatric exam: Present: normal affect, normal mood - Skin Skin exam: Present: warm, dry Course - Consultations Consultation #1: Dr Dang will admit patient for Dr. Kimball Time: 22:47 Results - Labs CBC & BMP: 03/15/17 19:36 03/15/17 19:36 Lab Results: I have reviewed the patients labs Labs: Laboratory Tests 03/15/17 19:36 WBC 5.8 RBC 3.56 L Hgb 10.7 L Hct 33.0 L Plt Count 365 Neut % (Auto) 24.6 L [place] % (Auto) 25.0 H Baso % (Auto) 2.1 H [place] # (Auto) 1.4 H Laboratory Tests 03/15/17 03/15/17 19:36 19:36 Segmented Neutrophils 31 L Monocytes 20 H Basophils 3.0 H Platelet Estimate Adequate Hypochromasia Slight Creatinine 1.10 Lactic Acid 2.3 H Magnesium 2.5 H ALT 13 L Troponin I < 0.015 Albumin 2.4 L Globulin 5.6 H Albumin/Globulin Ratio 0.4 L Laboratory Tests 03/15/17 03/15/17 19:36 19:36 B-Natriuretic Peptide 95 Amylase 47 Lipase 201.0 Laboratory Tests 03/15/17 19:36 Urine Color Yellow Urine Appearance Slightly hazy Urine pH 6.0 Ur Specific [place] 1.021 Urine Protein 30 Urine Nitrate Negative Urine Urobilinogen 4.0 H Urine Leukocytes Small H Urine RBC 2 Urine WBC 107 Ur Squamous Epith Cells Occasional Ur Transition Epith Cell Occasional Calcium Oxalate Crystal Moderate Urine Mucus Occasional - Diagnostic Findings Procedure: Chest x-ray: report reviewed by me (No acute cardiopulmonary findings.) Critical Care Time Critical Care Time: Yes Total Critical Care Time: 60 Disposition Clinical Impression: History of lung cancer, Intractable nausea and vomiting, Dehydration, Lung cancer, UTI (urinary tract infection), Hypovolemia, Nausea vomiting and diarrhea , Debility, unspecified, Wasting syndrome, Weight loss, Exertional dyspnea, Generalized weakness Case discussed with: patient, patient's family Disposition: Still a Patient Condition: Guarded Time of Disposition: 22:49 Sepsis - Sepsis Classification of Sepsis: Sepsis - Physical Exam Respiratory exam: rhonchi Capillary Refill: Less Than 3 Seconds Cardiovascular exam: tachycardia Skin exam: normal color
[2017-03-15 20:18] LABS: Lactic Acid 2.3 MMOL/L (0.4-2.0)
[2017-03-15 20:20] LABS: Alanine Aminotransferase 13 U/L (16-61); Albumin 2.4 G/DL (3.4-5.0); Alkaline Phosphatase 77 U/L (45-117); Aspartate Amino Transferase 23 U/L (0-37); Bilirubin,Total < 0.39 MG/DL (0.2-1.0); Blood Urea Nitrogen 17 MG/DL (7-18); Calcium 8.7 MG/DL (8.5-10.1); Glucose 98 MG/DL (74-106); Magnesium 2.5 MG/DL (1.8-2.4); Osmolality,Calculated 278.5 MOS/KG (273-304); Sodium 139 MMOL/L (136-145); Troponin I Only < 0.015 NG/ML (0.00-0.045)
[2017-03-15] MEDS ORDERED: methylPREDNISolone SOD SUC 125 MG/2 ML VIAL ONE (20:26)
[2017-03-15 20:36] LABS: Eosinophils 2 % (0-10); Lymphocytes 44 % (20-55); Segmented Neutrophils 31 % (50-85); Total Cells Counted 100
[2017-03-15 20:37] LABS: Hypochromasia Slight; Platelet Estimate Adequate
[2017-03-15] MEDS ORDERED: METOCLOPRAMIDE 10 MG/2 ML VIAL IV STA (20:37)
[2017-03-15] MEDS ORDERED: METOCLOPRAMIDE 10 MG/2 ML VIAL ONE (20:37)
--- NOTE | 2017-03-15 20:48 | XRay Report ---
Portable chest Exam date: 03/15/2017 803 PM Indication: Shortness of breath, cough Comparison: January 03, 2017 Findings: Cardiomediastinal contours are stable with sternotomy wires and midline and no change in Chemo-Port placement. Stable postoperative changes throughout the right chest consistent with prior lobectomy. Lungs are clear bilaterally. No acute osseous abnormalities. Visualized upper abdomen demonstrates no acute pathology. Impression: No acute cardiopulmonary findings PROCEDURE INTERPRETED AT [facility] DEPARTMENT OF RADIOLOGY Final Report Signed by: Melissa Hilliard MD
[2017-03-15] MEDS ORDERED: LEVOFLOXACIN INJ 750 MG in PREMIX 1 EACH IV SCH (21:00)
[2017-03-15] MEDS ORDERED: AZITHROMYCIN INJ 500 MG in SODIUM CHLORIDE 0.9% 250 ML IV SCH (21:00)
[2017-03-15] MEDS ORDERED: LEVOFLOXACIN INJ 150 ML IV ONE (21:17)
[2017-03-15] MEDS ORDERED: AZITHROMYCIN 500 MG VIAL IV ONE (21:18)
[2017-03-15 21:48] LABS: Apearance,Urine Slightly Hazy (Clear); Bilirubin,Urine Negative (Negative); Blood, Urine Negative (Negative); Calcium Oxalate Crystals,Urine Moderate /HPF (Few); Glucose,Urine (UA) Negative (Negative); Ketones,Urine Negative (Negative); Mucus,Urine Occasional /LPF (Occasional); Nitrite,Urine Negative (Negative); Protein,Urine 30 MG/DL; RBC,Urine 2 /HPF (0-4); Squamous Epithelial Cell,Urine Occasional /HPF (0-10); Transitional Epi Cells,Urine Occasional /HPF (<1); Urine Color Yellow (Yellow); Urine Specific Gravity 1.021 (1.001-1.035); WBC,Urine 107 /HPF (0-6)
[2017-03-15] MEDS ORDERED: ALUMINUM/MAGNES/SIMETH MAX STR 30 ML UDCUP PO PRN (23:42)
[2017-03-15] MEDS ORDERED: NON-FORMULARY MEDICATION (Ondansetron Hcl [Ondansetron Hcl] 8 MG) PO PRN (23:42)
[2017-03-15] MEDS ORDERED: MAGNESIUM HYDROXIDE SUSP 30 ML UDCUP PO PRN (23:42)
[2017-03-15] MEDS ORDERED: ACETAMINOPHEN 325 MG TABLET PO PRN (23:42)
[2017-03-15] MEDS ORDERED: LOPERAMIDE 2 MG CAPSULE PO PRN ×2 (23:42)
[2017-03-15] MEDS ORDERED: MYLANTA/LIDO VISC 2:1 300 ML BOTTLE SWISH/SPIT PRN (23:42)
[2017-03-15] MEDS ORDERED: ALBUTEROL/IPRATROPIUM 3 ML NEB RESP TX PRN (23:42)
[2017-03-15] MEDS ORDERED: BENZTROPINE 2 MG/2 ML AMP IV PRN (23:42)
[2017-03-15] MEDS ORDERED: LACTULOSE 20 GM/30 ML UDCUP PO PRN (23:42)
[2017-03-15] MEDS ORDERED: DIPHENOXYLATE/ATROPINE 2.5-0.025 MG TABLET PO PRN (23:42)
[2017-03-15] MEDS ORDERED: MYLANTA/LIDO VISC 2:1 300 ML BOTTLE SWISH/SWAL PRN (23:42)
[2017-03-15] MEDS ORDERED: ONDANSETRON 4 MG/2 ML VIAL IV PRN (23:42)
[2017-03-15] MEDS ORDERED: guaiFENesin 200 MG/10 ML UDCUP PO PRN (23:42)
[2017-03-16] MEDS: TEMAZEPAM 7.5 MG CAPSULE PO PRN ×2 (00:03→20:48)
[2017-03-16] MEDS: SODIUM CHLORIDE 0.9% 1,000 ML IV SCH ×3 (00:05→20:03)
[2017-03-16 00:25] LABS: Basophils % 0.5 % (0.0-0.8); Hematocrit 31.4 VOL% (42.0-52.0); Immature Granulocytes % 0.9 %; Immature Granulocytes Absolute 0.04 #; Lymphocytes # 0.4 10*3/uL (1.4-4.0); Lymphocytes % 10.3 % (21.2-54.2); Mean Corpuscular HGB Conc 31.8 GM/DL (32-36); Mean Corpuscular Hemoglobin 30 PG (27-34); Mean Corpuscular Volume 94.3 FL (87-102); Mean Platelet Volume 9.9 FL (9.6-12.0); Monocytes # 0.3 10*3/uL (0.11-0.8); Neutrophils # 3.5 10*3/uL (1.4-7.4); Neutrophils % 81.3 % (38.7-73.9); Platelet Count 326 T/CUMM (130-400); Red Blood Count 3.33 MC/CUMM (3.8-5.5); Red Cell Distribution Width 14.4 % (9.3-17.3); White Blood Count 4.3 T/CUMM (4-12)
[2017-03-16 00:51] LABS: Albumin 2.3 G/DL (3.4-5.0); Bilirubin,Total 0.4 MG/DL (0.2-1.0); Calcium 8.2 MG/DL (8.5-10.1); Magnesium 2.1 MG/DL (1.8-2.4); Osmolality,Calculated 292.1 MOS/KG (273-304); Potassium 3.9 MMOL/L (3.5-5.1); Total Protein 6.8 G/DL (6.4-8.3); Uric Acid 3.9 MG/DL (3.5-7.2)
[2017-03-16] MEDS: traMADol 50 MG TABLET PO PRN (02:26)
[2017-03-16 05:23] LABS: Basophils % 0.2 % (0.0-0.8); Hemoglobin 9.2 GM/DL (14.0-18.0); Immature Granulocytes Absolute 0.04 #; Lymphocytes # 0.3 10*3/uL (1.4-4.0); Lymphocytes % 6.2 % (21.2-54.2); Mean Corpuscular HGB Conc 32.9 GM/DL (32-36); Mean Corpuscular Hemoglobin 30 PG (27-34); Mean Corpuscular Volume 92.1 FL (87-102); Mean Platelet Volume 10.2 FL (9.6-12.0); Monocytes # 0.1 10*3/uL (0.11-0.8); Monocytes % 2.2 % (1.7-12.7); Neutrophils # 3.8 10*3/uL (1.4-7.4); Neutrophils % 90.4 % (38.7-73.9); Platelet Count 301 T/CUMM (130-400); Red Blood Count 3.04 MC/CUMM (3.8-5.5); Red Cell Distribution Width 14.4 % (9.3-17.3); White Blood Count 4.2 T/CUMM (4-12)
[2017-03-16 05:28] LABS: INR 1.1; PT Patient Result 11.9 SECS; Partial Thromboplastin Time 33.1 SECS (0-40)
[2017-03-16 05:53] LABS: Albumin 2.1 G/DL (3.4-5.0); Bilirubin,Total 0.4 MG/DL (0.2-1.0); Calcium 8.1 MG/DL (8.5-10.1); Osmolality,Calculated 289.1 MOS/KG (273-304); Potassium 3.9 MMOL/L (3.5-5.1); Total Protein 6.7 G/DL (6.4-8.3)
--- NOTE | 2017-03-16 07:32 | XRay Report ---
History: Nausea, vomiting, diarrhea Date: 03/16/2017 Study: Flat and erect abdomen Comparison exam: January 03, 2017 There is no evidence of pneumoperitoneum. The bowel gas pattern is nonspecific without jess mechanical obstruction or gross mass lesion. There is a moderate amount of retained stool in the colon. Surgical clips overlie the left mid abdomen as before. There is mild lumbar spondylosis. Impression: No definite acute process compared to the previous study PROCEDURE INTERPRETED AT [facility] DEPARTMENT OF RADIOLOGY Final Report Signed by: Dr. Rima Stapleton
--- NOTE | 2017-03-16 08:09 | Oncology History&Physical ---
Assessment and Plan - Time spent with patient Time spent with patient: Greater than 30 minutes (1) Metastatic lung carcinoma Status: Acute Assessment and plan: We will continue with IV fluids. I will also continue steroids. He already received a dose of Levaquin last night so we will continue with this as well. I anticipate he will likely remain in the hospital for a few days. He still needs to strongly consider comfort measures only from this point forward. Current Visit: Yes (2) UTI (urinary tract infection) Status: Acute Current Visit: Yes (3) Debility, unspecified Status: Acute Current Visit: Yes (4) Weight loss Status: Acute Current Visit: Yes (5) Generalized weakness Status: Acute Current Visit: Yes History of Present Illness History of present illness: Mr. Hester is a 72 year old male metastatic lung adenocarcinoma who was initially treated with surgical resection of advanced disease but then developed relapse within 12 months. We attempted to treat him with chemotherapy and radiation initially but over the last few months his disease has progressed to the point where chemotherapy is his only option. He has deteriorated very rapidly in the last 3 months. I have numerous times recommended to him that we should do nothing but place him on hospice. He is adamant that he wants to continue on with chemotherapy. He received chemotherapy approximately 2 weeks ago. We are using Taxotere and Cyramza. He presented to the emergency room yesterday with shortness of breath and hypo- tension. He is also continue to lose weight and felt very weak. He still wants everything to be done for him. He was admitted for IV fluids and further observation. This morning he states he feels mildly better. His blood pressure is stable. He received a dose of Levaquin for his UTI. Home Medications Medication Instructions Recorded Confirmed Type Aspirin [Ecotrin] 81 mg PO BEDTIME 10/30/15 03/15/17 History Clopidogrel [Plavix] 75 mg PO BEDTIME 10/30/15 03/15/17 History Terazosin [Hytrin] 2 mg PO BEDTIME 10/30/15 03/15/17 History Diphenoxylate HCl/Atropine 1 each PO Q6H PRN 03/15/17 03/15/17 History [Diphenoxylate/Atropine 2.5-0.025 mg Tab] Ondansetron HCl [Ondansetron HCl] 8 mg PO Q8H PRN 03/15/17 03/15/17 History Allergies Allergy/AdvReac Type Severity Reaction Status Date / Time Penicillins Allergy HIVES Verified 02/03/17 05:16 promethazine [From Phenergan] AdvReac Hallucinati Verified 02/03/17 05:16 ng Medical,Surgical,& Family Hx - Medical History Cardio: History of: CAD, Hypertension, Cardiovascular Problems (open heart surgery 2002) Neurology: No history of: Cerebral Hemorrhage Endocrine: No history of: Diabetes Mellitus (IDDM), Diabetes Mellitus (NIDDM) Respiratory: History of: COPD, Lung Cancer (x2) No history of: Pulmonary Embolism Renal: No history of: Renal Failure Genitourinary: No history of: Problems Gastrointestinal: History of: GERD, GI Problems (prior colon ca) Musculoskeletal: No history of: Degenerative Disk Disease Hematology: No history of: Bleeding Problems, Clotting Problems Other: History of: Cancer (lung ca) - Surgical History Cardiac Surgeries: Sugical HX of: Cardiac Surgery (cabg 2003) Thoracic Surgeries: Surgical HX of;: Lobectomy (right center and top lob removed 2013) Neurologic Surgeries: Patient denies: Cerebral Hemorrhage Abdominal Surgeries: Surgical HX of: Abdominal Surgery, Appendectomy, Colonoscopy - Family History Family History: Denies;: Family Cancer - Social History Smoking Status: Former smoker Frequency of Alcohol Use: None Type of Drug Use: None 12 point system: reviewed and no additional remarkable complaints except as stated - Constitutional Constitutional: Present: fatigue, weakness, weight loss - Cardiovascular Cardiovascular ROS IM: Absent: chest pain, edema, orthopnea - Respiratory Respiratory: Present: cough, dyspnea. Absent: hemoptysis, wheezing - Musculoskeletal Musculoskeletal ROS: Present: arthralgias, back pain Exam - Constitutional Vitals: Period Temp Pulse Resp BP Sys/Herr Pulse Ox Last 24 Hr 97.3 F-98.7 F 92-118 16-22 85-113/52-62 86-100 General appearance: no acute distress, under weight - Head Head Exam: Present: normocephalic, atraumatic - ENT ENT exam: Present: normal exam, normal oropharynx - Neck Neck exam: Absent: lymphadenopathy, thyromegaly - Respiratory Respiratory exam: Present: CTAB. Absent: decreased breath sounds, wheezes - Cardiovascular Cardiovascular exam: Present: RRR. Absent: JVD, systolic murmur - GI/Abdominal GI/Abdominal exam: Present: soft. Absent: ascites, distended, mass - Neurological Exam Neurological exam: Present: alert, oriented X3, CN II-XII intact - Psychiatric Psychiatric exam: Present: normal affect, normal mood - Skin Skin exam: Present: warm, dry Results - Labs CBC & BMP: 03/16/17 04:53 03/16/17 04:53
[2017-03-16] MEDS ORDERED: HYDROmorphone 2 MG/1 ML VIAL IV PRN (08:12)
--- NOTE | 2017-03-16 08:16 | XRay Report ---
History: Shortness of breath. History of lung cancer Date: 03/16/2017 Study: Chest x-ray AP portable Comparison exam: 03/15/2017 A left subclavian Mediport catheter is intact and unchanged. The cardiac silhouette is not enlarged. The mediastinal contours are stable in this patient status post prior median sternotomy. The pulmonary vasculature is not engorged. Chronic atelectatic changes in the right lung apex are present as before. There is evidence of remote right-sided thoracotomy. There is no new or worsening infiltrate. There is mild linear scarring in the right base. There is no layering pleural effusion. Osseous structures are unchanged. Impression: No acute cardiopulmonary process. No adverse interval change compared to the previous study PROCEDURE INTERPRETED AT [facility] DEPARTMENT OF RADIOLOGY Final Report Signed by: Dr. Rima Stapleton
[2017-03-16] MEDS: PANTOPRAZOLE 40 MG VIAL IV SCH (09:56)
[2017-03-16] MEDS: methylPREDNISolone SOD SUC 40 MG/1 ML VIAL IV SCH ×2 (09:57→20:15)
[2017-03-16] MEDS: METHOCARBAMOL 750 MG TABLET PO PRN ×2 (16:06→21:11)
[2017-03-16] MEDS: ASPIRIN EC 81 MG TABLET PO SCH (20:12)
[2017-03-16] MEDS: LEVOFLOXACIN 500 MG TABLET PO SCH (20:12)
[2017-03-16] MEDS: CLOPIDOGREL 75 MG TABLET PO SCH (20:12)
[2017-03-16] MEDS: TERAZOSIN 2 MG CAPSULE PO SCH (20:13)
[2017-03-16] MEDS: ALPRAZolam 0.25 MG TABLET PO PRN (22:29)
[2017-03-17 05:55] LABS: Basophils % 0.1 % (0.0-0.8); Hematocrit 26.2 VOL% (42.0-52.0); Hemoglobin 8.4 GM/DL (14.0-18.0); Immature Granulocytes Absolute 0.11 #; Lymphocytes # 0.8 10*3/uL (1.4-4.0); Lymphocytes % 7.2 % (21.2-54.2); Mean Corpuscular HGB Conc 32.1 GM/DL (32-36); Mean Corpuscular Hemoglobin 30 PG (27-34); Mean Corpuscular Volume 92.6 FL (87-102); Mean Platelet Volume 10.2 FL (9.6-12.0); Monocytes # 0.5 10*3/uL (0.11-0.8); Monocytes % 4.9 % (1.7-12.7); Neutrophils # 9.4 10*3/uL (1.4-7.4); Neutrophils % 86.8 % (38.7-73.9); Platelet Count 316 T/CUMM (130-400); Red Blood Count 2.83 MC/CUMM (3.8-5.5); Red Cell Distribution Width 14.6 % (9.3-17.3); White Blood Count 10.8 T/CUMM (4-12)
[2017-03-17] MEDS: SODIUM CHLORIDE 0.9% 1,000 ML IV SCH ×2 (06:07→21:00)
--- NOTE | 2017-03-17 07:55 | XRay Report ---
Portable chest Date: 03/17/2017 Clinical history: Shortness of breath Comparison: 03/16/2017 Technique: Portable AP sitting chest Findings: The heart is normal in size with prior median sternotomy. Stable left subclavian venous access catheter. Chronic scarring in the lungs with prior right thoracotomy with pleural calcification. Residual asymmetric parenchymal findings at the right lung apex with relative elevation of the right hemidiaphragm. Stable mediastinum and osseous structures. Impression: Bullous emphysema with chronic scarring in patient with prior right thoracotomy and median sternotomy. History of lung cancer with no significant change in the appearance of the chest when compared to the previous exam. Asymmetric pleural parenchymal findings persist at the right lung apex. PROCEDURE INTERPRETED AT [facility] DEPARTMENT OF RADIOLOGY Final Report Signed by: Dr. Dalila Ga
[2017-03-17] MEDS ORDERED: SODIUM CHLORIDE 0.9% 250 ML IV PRN (08:21)
--- NOTE | 2017-03-17 08:25 | Discharge Summary ---
Hospital Course - Hospital Course Hospital Course: Mr. Hester is a 72-year-old white male with metastatic lung cancer who has been treated with multiple lines of chemotherapy with most recently being Taxotere and Cyramza. He was due to come to clinic next week for his third dose of chemotherapy. We are doing a CT scan this week for staging purposes at [place]. However he presented to the emergency room 2 days ago with complaints of weakness. He was found to have what appeared to be a urinary tract infection and was dehydrated. He was placed on antibiotics and aggressively rehydrated. He felt better after IV fluids. His urine culture ultimately grew out no bacteria. His hemoglobin today is down to 8.4 so I will transfuse him 2 units of blood. If he feels better after the blood, he will go home. If he wants to wait overnight, he can be discharged in the morning. Even though his urine cultures were no growth, I will send him home with 3 more days of Levaquin. He is already scheduled to see me next week in clinic and I instructed him to just keep this appointment. We again had a lengthy discussion today about his prognosis and how I strongly recommend he go on home hospice. He states he will continue to think about this but for now wants to remain on treatment. Diagnosis - Discharge Diagnosis (1) Metastatic lung carcinoma Status: Acute (2) UTI (urinary tract infection) Status: Acute (3) Debility, unspecified Status: Acute (4) Weight loss Status: Acute (5) Generalized weakness Status: Acute Discharge Plan - Discharge Data Disposition: Disch To Home/Self Care Condition at Discharge: Stable Activity: resume usual activities as tolerated - Discharge Medications New HYDROcodone/CHLORPHEN ER SUSP [Tussionex] 5 ml PO BID PRN #150 ml PRN Reason: Cough Levofloxacin Tab [Levaquin Tab] 500 mg PO Q24H #3 tablet Continue Clopidogrel [Plavix] 75 mg PO BEDTIME Aspirin [Ecotrin] 81 mg PO BEDTIME Terazosin [Hytrin] 2 mg PO BEDTIME Diphenoxylate HCl/Atropine [Diphenoxylate/Atropine 2.5-0.025 mg Tab] 1 each PO Q6H PRN PRN Reason: Diarrhea Ondansetron HCl 8 mg PO Q8H PRN PRN Reason: Nausea - Follow Up or Referral - Forms/Instructions Exam - Constitutional Vitals: Period Temp Pulse Resp BP Sys/Herr Pulse Ox Last 24 Hr 98.2 F-98.7 F 73-84 18-20 118-141/56-68 94-96 Discharge Results Procedures and tests throughout hospitalization: Pending Orders 03/15/17 Urine Culture Routine 03/15/17 19:36 Blood Culture Stat 03/15/17 20:58 cdiff [C. Diff Toxins A & B] Stat 03/17/17 08:21 Red Blood Cells Leuko Red Routine Type and Screen Routine 03/18/17 04:00 XR chest 1V portable IN AM CBC [Comp Blood Count Auto Diff] IN AM Labs on day of discharge: Labs from last 24 hours 03/17/17 05:37 WBC 10.8 D RBC 2.83 L Hgb 8.4 L Hct 26.2 L MCV 92.6 MCH 30 MCHC 32.1 RDW 14.6 Plt Count 316 MPV 10.2 Neut % (Auto) 86.8 H Lymph % (Auto) 7.2 L [place] % (Auto) 4.9 Eos % (Auto) 0.0 Baso % (Auto) 0.1 Neut # (Auto) 9.4 H Lymph # (Auto) 0.8 L [place] # (Auto) 0.5 Eos # (Auto) 0.0 Baso # (Auto) 0.0 Immature Gran % 1.0 Nucleated RBC % 0.0 Immature Gran # 0.11 Nucleated RBCs # 0.00 Immature Plt Fraction 0.0 Preliminary micro results at discharge 03/16/17 00:02 Blood Culture - Preliminary Blood No growth at 1 day 03/15/17 19:36 Blood Culture - Preliminary Blood No growth at 1 day 03/15/17 Unknown Urine Culture - Preliminary Urine,Voided No Growth at 12 hours. DS: Provider Date of admission: 03/15/17 22:51 Primary care physician: Ike Anglin I Attending physician on admission: Stephan Kimball MD Consults: 03/15/17 23:42 Consult to Case Mgmt/Social Srvs [CONS] Routine Reason for Case Mgmt/Social Srvs: Rehab Hospice Referral 03/16/17 00:25 Consult to Dietitian [CONS] Routine Reason for Dietitian: Dietary Consult Discharging clinician: Stephan Kimball MD
[2017-03-17] MEDS: traMADol 50 MG TABLET PO PRN ×2 (09:18→23:37)
[2017-03-17] MEDS: METHOCARBAMOL 750 MG TABLET PO PRN ×2 (09:18→20:59)
[2017-03-17] MEDS: PANTOPRAZOLE 40 MG VIAL IV SCH (09:19)
[2017-03-17] MEDS: methylPREDNISolone SOD SUC 40 MG/1 ML VIAL IV SCH (10:12)
[2017-03-17] MEDS ORDERED: INFLUENZA VIRUS VACCINE 0.5 ML SYRINGE IM ONE (16:02)
[2017-03-17] MEDS: LEVOFLOXACIN 500 MG TABLET PO SCH (20:56)
[2017-03-17] MEDS: ASPIRIN EC 81 MG TABLET PO SCH (20:56)
[2017-03-17] MEDS: CLOPIDOGREL 75 MG TABLET PO SCH (20:56)
[2017-03-17] MEDS: TERAZOSIN 2 MG CAPSULE PO SCH (20:56)
[2017-03-17] MEDS: TEMAZEPAM 7.5 MG CAPSULE PO PRN (23:39)
[2017-03-18 05:26] LABS: Basophils % 0.2 % (0.0-0.8); Hematocrit 33.3 VOL% (42.0-52.0); Hemoglobin 10.7 GM/DL (14.0-18.0); Immature Granulocytes % 0.7 %; Immature Granulocytes Absolute 0.07 #; Lymphocytes # 1.9 10*3/uL (1.4-4.0); Mean Corpuscular HGB Conc 32.1 GM/DL (32-36); Mean Corpuscular Hemoglobin 29 PG (27-34); Mean Corpuscular Volume 91.5 FL (87-102); Mean Platelet Volume 10.6 FL (9.6-12.0); Monocytes # 1.2 10*3/uL (0.11-0.8); Monocytes % 12.7 % (1.7-12.7); Neutrophils # 6.2 10*3/uL (1.4-7.4); Neutrophils % 66.4 % (38.7-73.9); Platelet Count 299 T/CUMM (130-400); Red Blood Count 3.64 MC/CUMM (3.8-5.5); Red Cell Distribution Width 15.5 % (9.3-17.3); White Blood Count 9.4 T/CUMM (4-12)
[2017-03-18] MEDS: SODIUM CHLORIDE 0.9% 1,000 ML IV SCH ×2 (07:16→10:52)
--- NOTE | 2017-03-18 08:55 | XRay Report ---
XR chest 1V portable Indication: Shortness of breath Comparison: 17 March 2017 Findings: The heart and mediastinum are stable in size and configuration with cardiac surgery changes. Subclavian Port-A-Cath is unchanged in position. The pulmonary vascularity is normal in caliber. Lung volumes are increased with prominent bronchial markings. No lung infiltrates, effusions, pneumothorax or other abnormality is demonstrated. Impression: Chronic lung and cardiac surgery changes. No acute process or significant change. PROCEDURE INTERPRETED AT [facility] DEPARTMENT OF RADIOLOGY Final Report Signed by: Dr. Tommie Hess
[2017-03-18] MEDS: PANTOPRAZOLE 40 MG VIAL IV SCH (09:02)
--- NOTE | 2017-03-18 13:09 | Oncology Progress Note ---
Oncology Subjective PN Interval history: The patient has remained stable overnight. His oral intake appears adequate with brisk urine output. I am reducing his amount of IV fluids. He is status post red blood cell transfusion. Plan to follow-up CBC and basic metabolic panel in the a.m. His lungs show coarse breath sounds left greater than right with no evidence of large volume pleural effusion. No wheezes are heard. The patient desires further inpatient care despite previous discharge orders Exam - Constitutional Vitals: Period Temp Pulse Resp BP Sys/Herr Pulse Ox Last 24 Hr 96.7 F-98.5 F 55-65 16-20 122-148/60-70 95-98 Results - Labs CBC & BMP: 03/18/17 03:54 03/16/17 04:53
[2017-03-18] MEDS: ALPRAZolam 0.25 MG TABLET PO PRN (13:51)
[2017-03-18] MEDS: ASPIRIN EC 81 MG TABLET PO SCH (20:40)
[2017-03-18] MEDS: CLOPIDOGREL 75 MG TABLET PO SCH (20:40)
[2017-03-18] MEDS: TERAZOSIN 2 MG CAPSULE PO SCH (20:41)
[2017-03-18] MEDS: TEMAZEPAM 7.5 MG CAPSULE PO PRN (20:41)
[2017-03-18] MEDS: LEVOFLOXACIN 500 MG TABLET PO SCH (20:41)
[2017-03-18] MEDS: traMADol 50 MG TABLET PO PRN (22:09)
[2017-03-18] MEDS: METHOCARBAMOL 750 MG TABLET PO PRN (22:09)
[2017-03-19] MEDS: TEMAZEPAM 7.5 MG CAPSULE PO PRN ×2 (00:57→20:38)
[2017-03-19 02:13] LABS: Apearance,Urine CLEAR (Clear); Bacteria,Urine Occasional /HPF (Few); Bilirubin,Urine Negative (Negative); Blood, Urine Negative (Negative); Glucose,Urine (UA) Negative (Negative); Ketones,Urine Negative (Negative); Mucus,Urine Occasional /LPF (Occasional); Nitrite,Urine Negative (Negative); Protein,Urine Negative; RBC,Urine 1 /HPF (0-4); Urine Color Straw (Yellow); Urine Specific Gravity 1.011 (1.001-1.035); Urine Urobilinogen < 2.0 EU/DL (0.2-1.0); WBC,Urine 3 /HPF (0-6)
[2017-03-19 03:37] LABS: Basophils % 0.4 % (0.0-0.8); Eosinophils % 0.1 % (0.00-10.9); Hemoglobin 9.6 GM/DL (14.0-18.0); Immature Granulocytes Absolute 0.11 #; Lymphocytes # 2.5 10*3/uL (1.4-4.0); Lymphocytes % 23.4 % (21.2-54.2); Mean Corpuscular HGB Conc 33.1 GM/DL (32-36); Mean Corpuscular Hemoglobin 30 PG (27-34); Mean Corpuscular Volume 90.3 FL (87-102); Monocytes # 1.4 10*3/uL (0.11-0.8); Monocytes % 13.5 % (1.7-12.7); NRBC # 0.03 10*3/uL; Neutrophils # 6.5 10*3/uL (1.4-7.4); Neutrophils % 61.6 % (38.7-73.9); Platelet Count 293 T/CUMM (130-400); Red Blood Count 3.21 MC/CUMM (3.8-5.5); Red Cell Distribution Width 15.2 % (9.3-17.3); White Blood Count 10.5 T/CUMM (4-12)
[2017-03-19 04:01] LABS: Magnesium 2.1 MG/DL (1.8-2.4); Osmolality,Calculated 292.1 MOS/KG (273-304); Potassium 4.1 MMOL/L (3.5-5.1)
[2017-03-19] MEDS: traMADol 50 MG TABLET PO PRN (04:09)
[2017-03-19] MEDS: METHOCARBAMOL 750 MG TABLET PO PRN ×2 (04:09→21:50)
[2017-03-19] MEDS: PANTOPRAZOLE 40 MG VIAL IV SCH (09:37)
--- NOTE | 2017-03-19 11:38 | Oncology Progress Note ---
Oncology Subjective PN Interval history: Mr. Hester developed urinary retention overnight with in and out catheterization 1 now with indwelling Wade. He is otherwise in no acute distress and is awake alert oriented and cooperative. His abdomen is soft and nontender at this time. His Wade bag contains clear and otherwise unremarkable urine. He does have a history of BPH and has seen Dr. Rodriguez in the past though he was told that his prostate was not large enough to cause obstructive symptoms. This may simply be bladder atony from some of his pain medications and we will discontinue the Wade after lunch today and attempt further voiding trials Exam - Constitutional Vitals: Period Temp Pulse Resp BP Sys/Herr Pulse Ox Last 24 Hr 97.1 F-98.1 F 60-109 16-20 96-142/55-69 93-98 Results - Labs CBC & BMP: 03/19/17 02:02 03/19/17 02:02
[2017-03-19] MEDS: ALPRAZolam 0.25 MG TABLET PO PRN ×3 (13:33→21:50)
[2017-03-19] MEDS: CLOPIDOGREL 75 MG TABLET PO SCH (20:38)
[2017-03-19] MEDS: ASPIRIN EC 81 MG TABLET PO SCH (20:39)
[2017-03-19] MEDS: TERAZOSIN 2 MG CAPSULE PO SCH (20:39)
[2017-03-19] MEDS: diphenhydrAMINE CAP 25 MG CAPSULE PO PRN (22:25)
[2017-03-20] MEDS: ALPRAZolam 0.25 MG TABLET PO PRN ×4 (05:08→20:33)
--- NOTE | 2017-03-20 07:52 | Oncology Progress Note ---
Assessment and Plan (1) Metastatic lung carcinoma Status: Acute Assessment and plan: We will continue with IV fluids. I will also continue steroids. He already received a dose of Levaquin last night so we will continue with this as well. I anticipate he will likely remain in the hospital for a few days. He still needs to strongly consider comfort measures only from this point forward. Current Visit: Yes (2) UTI (urinary tract infection) Status: Acute Current Visit: Yes (3) Debility, unspecified Status: Acute Current Visit: Yes (4) Weight loss Status: Acute Current Visit: Yes (5) Generalized weakness Status: Acute Current Visit: Yes Oncology Subjective PN Interval history: Mr. Hester remains in the hospital. He complains of worsening shortness of breath today. On evaluation he does not appear to be in any more distress than he was when I saw him 3 days ago. Most of his issues is related to his long- term tate with stage IV lung cancer. He is having a difficult time accepting this and still believes he is going to get better. We will make some small changes to his regimen including adding Solu-Medrol and placing him on Xopenex. Regular DuoNeb to give him significant tachycardia. I was going to give him some Lasix today but he is mildly hypotensive so I will hold off on that. I will repeat a chest x-ray. We will check lab work tomorrow morning. I will ask physical therapy to see him to see if he can tolerate some rehabilitation. I am unsure how much better he will get. I honestly believe that he is going to continue to slowly decline and only has a few weeks to months to live. We will readdress his CODE STATUS again in the next day or 2 as he stated that he wants to be full code for now. Exam - Constitutional Vitals: Period Temp Pulse Resp BP Sys/Herr Pulse Ox Last 24 Hr 97 F-97.7 F 97-106 15-20 93-120/55-66 98-100 General appearance: normal weight, no acute distress - Head Head Exam: Present: normocephalic, atraumatic - Eye Eye Exam: Present: EOMI Pupils: Present: PERRL - ENT ENT exam: Present: normal exam, other (Thrush over his oral surfaces.) - Neck Neck exam: Absent: lymphadenopathy, thyromegaly - Respiratory Respiratory exam: Present: CTAB. Absent: decreased breath sounds, wheezes - Cardiovascular Cardiovascular exam: Present: RRR. Absent: JVD, systolic murmur - GI/Abdominal GI/Abdominal exam: Present: soft. Absent: ascites, distended, firm, mass - Neurological Exam Neurological exam: Present: alert, oriented X3 - Psychiatric Psychiatric exam: Present: normal affect, normal mood - Skin Skin exam: Present: warm, dry Results - Labs CBC & BMP: 03/19/17 02:02 03/19/17 02:02
[2017-03-20] MEDS ORDERED: FLUCONAZOLE 200 MG TABLET PO ONE (07:54)
[2017-03-20 07:56] LABS: Magnesium 2.1 MG/DL (1.8-2.4); Osmolality,Calculated 296.8 MOS/KG (273-304); Potassium 3.9 MMOL/L (3.5-5.1)
[2017-03-20 08:28] LABS: Basophils % 0.3 % (0.0-0.8); Eosinophils % 0.2 % (0.00-10.9); Hematocrit 20.5 VOL% (42.0-52.0); Immature Granulocytes Absolute 0.13 #; Lymphocytes # 3.3 10*3/uL (1.4-4.0); Lymphocytes % 25.6 % (21.2-54.2); Mean Corpuscular HGB Conc 32.7 GM/DL (32-36); Mean Corpuscular Hemoglobin 30 PG (27-34); Mean Corpuscular Volume 91.9 FL (87-102); Mean Platelet Volume 10.8 FL (9.6-12.0); Monocytes # 1.2 10*3/uL (0.11-0.8); Monocytes % 9.2 % (1.7-12.7); Neutrophils # 8.1 10*3/uL (1.4-7.4); Neutrophils % 63.7 % (38.7-73.9); Platelet Count 290 T/CUMM (130-400); Red Cell Distribution Width 15.5 % (9.3-17.3); White Blood Count 12.7 T/CUMM (4-12)
[2017-03-20 08:29] LABS: Red Blood Count 2.23 MC/CUMM (3.8-5.5)
[2017-03-20 08:30] LABS: Hemoglobin 6.7 GM/DL (14.0-18.0)
[2017-03-20] MEDS ORDERED: BUDESONIDE/FORMOTEROL 160-4.5 INHALER 6 GM INH SCH (09:00)
[2017-03-20] MEDS: PANTOPRAZOLE 40 MG VIAL IV SCH (09:02)
[2017-03-20] MEDS: NYSTATIN 500,000 UNIT/5 ML UDCUP SWISH/SWAL SCH ×3 (09:02→20:33)
[2017-03-20] MEDS: methylPREDNISolone SOD SUC 125 MG/2 ML VIAL IV SCH ×2 (09:03→20:33)
[2017-03-20 09:35] LABS: Hematocrit 19.4 VOL% (42.0-52.0); Hemoglobin 6.5 GM/DL (14.0-18.0)
[2017-03-20] MEDS ORDERED: SODIUM CHLORIDE 0.9% 250 ML IV PRN (09:44)
--- NOTE | 2017-03-20 10:08 | Gastrointestinal Consult Note ---
<Jose Eduardo Nolascoher Marisela - Last Filed: 03/20/17 10:03> Assessment and Plan (1) Anemia Status: Acute Assessment and plan: 03/20-history of lung cancer with ongoing chemotherapy admitted with shortness of breath. Findings of drop in H&H since admission note 12/05 without overt bleeding. On Plavix therapy for history of stent placement. Elevated BUN/ creatinine ratio noted. Stools for occult blood are pending. Will obtain prior endoscopy records from [place]. Continue to monitor serial H&H. Hold Plavix. Consider upper endoscopy to further evaluate if patient remains stable. Plan an addendum to followed by Dr. Marks. Current Visit: Yes History of Present Illness Chief complaint: Anemia History of present illness: Mr. Hester is a 72 year old male who was admitted to the hospital on 03/15 with complaints of shortness of breath. Patient is a fairly good historian however information is also obtained from chart review. Patient has a history of lung cancer that was diagnosed approximately 5 years ago. He initially went through a lung resection 2 as well as chemotherapy. His cancer went into remission however he had a recurrence 3 years ago. Since this time, patient states he has been on chemotherapy and prior to now radiation. Patient reportedly continues to decline at this time and has had recommendation by Dr. Kimball to discontinue chemotherapy and go on hospice care however patient is adamant to continue. He reports his last chemotherapy approximately 2-3 weeks ago and is to receive another round on Monday. Upon admission, patient has had continued complaints of shortness of breath as well as some hypotension. His admitting H&H was noted at . He has no prior history of anemia or blood transfusions in the past according to the patient. He has had a gradual drop in his counts and today he is at 12/05. He is reported no overt bleeding prior to admission or during his hospital stay however states last night he did have a stool that was darker in color than usual. He denies any hematochezia. He denies any nausea or vomiting. He has had a 40 pound weight loss over the last year that he relates to his ongoing cancer treatments. He denies any epigastric pain, GERD, dyspepsia or dysphagia. He is noted to be on Plavix therapy and states he has been on this for approximately 6-7 years. He has a history of open heart surgery as well as stent placement 3 that he states was several years ago. He was noted to receive a dose of Plavix on last night. He has been seen in the past by gastroenterology at [place] with his last known upper and lower scopes reported to be 2 years ago with no abnormal findings per patient. He denies a history of peptic ulcer disease. He denies any anti- inflammatory use. His BUN/creatinine ratio on admission noted at 15 is now elevated to 52. Stool studies negative for C. difficile. Home Medications Medication Instructions Recorded Confirmed Type Aspirin [Ecotrin] 81 mg PO BEDTIME 10/30/15 03/16/17 History Clopidogrel [Plavix] 75 mg PO BEDTIME 10/30/15 03/16/17 History Terazosin [Hytrin] 2 mg PO BEDTIME 10/30/15 03/16/17 History Diphenoxylate HCl/Atropine 1 each PO Q6H PRN 03/15/17 03/16/17 History [Diphenoxylate/Atropine 2.5-0.025 mg Tab] Ondansetron HCl 8 mg PO Q8H PRN 03/15/17 03/16/17 History HYDROcodone/CHLORPHEN ER SUSP 5 ml PO BID PRN #150 ml 03/17/17 Rx [Tussionex] Levofloxacin Tab [Levaquin Tab] 500 mg PO Q24H #3 tablet 03/17/17 Rx Allergies Allergy/AdvReac Type Severity Reaction Status Date / Time Penicillins Allergy HIVES Verified 02/03/17 05:16 promethazine [From Phenergan] AdvReac Hallucinati Verified 02/03/17 05:16 ng Medical,Surgical,& Family Hx - Medical History Cardio: History of: CAD, Hypertension, Cardiovascular Problems (open heart surgery 2002) Neurology: No history of: Cerebral Hemorrhage Endocrine: No history of: Diabetes Mellitus (IDDM), Diabetes Mellitus (NIDDM) Respiratory: History of: COPD, Lung Cancer (x2) No history of: Pulmonary Embolism Renal: No history of: Renal Failure Genitourinary: No history of: Problems Gastrointestinal: History of: GERD, GI Problems (prior colon ca) Musculoskeletal: No history of: Degenerative Disk Disease Hematology: No history of: Bleeding Problems, Clotting Problems Other: History of: Cancer (lung ca) - Surgical History Cardiac Surgeries: Sugical HX of: Cardiac Surgery (cabg 2003) Thoracic Surgeries: Surgical HX of;: Lobectomy (right center and top lob removed 2013) Neurologic Surgeries: Patient denies: Cerebral Hemorrhage Abdominal Surgeries: Surgical HX of: Abdominal Surgery, Appendectomy, Colonoscopy - Family History Family History: Denies;: Family Cancer - Social History Smoking Status: Former smoker Frequency of Alcohol Use: None Type of Drug Use: None 12 point system: reviewed and no additional remarkable complaints except as stated - Constitutional Constitutional: Present: as per HPI, weakness, weight loss - EENT Eyes: Present: as per HPI Ears: Present: as per HPI Nose, mouth and throat: Present: as per HPI - Cardiovascular Cardiovascular: Present: as per HPI, dyspnea - Respiratory Respiratory: Present: as per HPI, dyspnea - Gastrointestinal Gastrointestinal: Present: as per HPI - Genitourinary Genitourinary: Present: as per HPI - Musculoskeletal Musculoskeletal: Present: as per HPI - Neurological Neurological: Present: as per HPI - Psychiatric Psychiatric: Present: as per HPI - Endocrine Endocrine: Present: as per HPI - Hematologic/Lymphatic Hematologic/Lymphatic: Present: as per HPI Exam - Constitutional Vitals: Period Temp Pulse Resp BP Sys/Herr Pulse Ox Last 24 Hr 96.9 F-97.7 F 97-108 15-20 93-120/54-66 98-100 General appearance: normal weight, no acute distress - Head Head exam: Present: normal inspection, normocephalic - Eye Eye exam: Present: other (Lids and conjunctivae are unremarkable). Absent: scleral icterus - ENT ENT exam: Present: normal exam, normal oropharynx - Neck Neck exam: Present: normal inspection - Respiratory Respiratory exam: Present: clear to auscultation bilaterally. Absent: rales, rhonchi, wheezes - Cardiovascular Cardiovascular exam: Present: regular rate and rhythm. Absent: diastolic murmur , JVD, systolic murmur - GI/Abdominal GI/Abdominal exam: Present: normal bowel sounds, soft. Absent: ascites, distended, mass, organomegaly, tenderness - Extremities Exam Extremities exam: Present: normal inspection, full ROM - Back Exam Back exam: Present: normal inspection - Neurological Exam Neurological exam: Present: alert, oriented X3 - Psychiatric Psychiatric exam: Present: normal affect, normal mood - Skin Skin exam: Present: normal color, warm, dry Results - Labs CBC & BMP: 03/20/17 09:15 03/20/17 06:56 Lab Results: I have reviewed the past 24 hour labs <Jer Marks - Last Filed: 03/20/17 22:37> History of Present Illness Chief complaint: 3030 History of present illness: Mr. Hester is a 72 year old male Exam - Constitutional Vitals: Period Temp Pulse Resp BP Sys/Herr Pulse Ox Last 24 Hr 96.2 F-97.6 F 83-108 15-20 82-111/46-62 98-100 Results - Labs CBC & BMP: 03/20/17 09:15 03/20/17 06:56
[2017-03-20] MEDS: METHOCARBAMOL 750 MG TABLET PO PRN ×2 (12:35→22:09)
--- NOTE | 2017-03-20 13:18 | XRay Report ---
XR chest 1V portable Indication: Shortness of breath, cough Comparison: 18 March 2017 Findings: The heart and mediastinum are stable in size and configuration with cardiac surgery changes. Chronic scarring is present in the right upper lung from previous surgery. Left subclavian Port-A-Cath is unchanged in position. The pulmonary vascularity is normal in caliber. Lung volumes are increased with prominent bronchial markings. No lung infiltrates, effusions, pneumothorax or other abnormality is demonstrated. Impression: Chronic lung and cardiothoracic surgery changes. No acute process or significant change. PROCEDURE INTERPRETED AT [facility] DEPARTMENT OF RADIOLOGY Final Report Signed by: Dr. Tommie Hess
[2017-03-20] MEDS: ALBUTEROL 1.25 MG/3 ML NEB RESP TX SCH (14:57)
[2017-03-20] MEDS ORDERED: IPRATROPIUM 500 MCG/2.5 ML NEB RESP TX SCH (15:00)
[2017-03-20] MEDS: diphenhydrAMINE CAP 25 MG CAPSULE PO PRN (20:33)
[2017-03-20] MEDS: TERAZOSIN 2 MG CAPSULE PO SCH (20:33)
[2017-03-20] MEDS: traMADol 50 MG TABLET PO PRN (22:09)
[2017-03-21] MEDS: ALBUTEROL 1.25 MG/3 ML NEB RESP TX SCH ×4 (00:18→23:31)
[2017-03-21 07:33] LABS: Hematocrit 23.5 VOL% (42.0-52.0); Immature Granulocytes % 1.6 %; Immature Granulocytes Absolute 0.11 #; Lymphocytes # 0.9 10*3/uL (1.4-4.0); Lymphocytes % 12.8 % (21.2-54.2); Mean Corpuscular Hemoglobin 31 PG (27-34); Mean Corpuscular Volume 89.7 FL (87-102); Monocytes # 0.1 10*3/uL (0.11-0.8); Monocytes % 1.7 % (1.7-12.7); Neutrophils # 5.8 10*3/uL (1.4-7.4); Neutrophils % 83.9 % (38.7-73.9); Platelet Count 283 T/CUMM (130-400); Red Blood Count 2.62 MC/CUMM (3.8-5.5); Red Cell Distribution Width 15.9 % (9.3-17.3)
[2017-03-21 07:36] LABS: White Blood Count 6.9 T/CUMM (4-12)
[2017-03-21 07:42] LABS: Calcium 8.4 MG/DL (8.5-10.1); Magnesium 2.4 MG/DL (1.8-2.4); Osmolality,Calculated 306.7 MOS/KG (273-304)
--- NOTE | 2017-03-21 07:45 | Oncology Progress Note ---
Assessment and Plan (1) GI bleed Status: Acute Current Visit: Yes (2) Metastatic lung carcinoma Status: Acute Current Visit: Yes (3) UTI (urinary tract infection) Status: Acute Current Visit: Yes (4) Debility, unspecified Status: Acute Current Visit: Yes (5) Weight loss Status: Acute Current Visit: Yes (6) Generalized weakness Status: Acute Current Visit: Yes Oncology Subjective PN Interval history: Mr. Hester feels somewhat better today after 2 units of blood yesterday. His hemoglobin this morning is 8.0 which is up from 6.5. This is an appropriate response to 2 units of blood. GI plans to do an EGD today to evaluate for the possible etiology of his rapid drop in his hemoglobin yesterday. There is no evidence of melena or bloody stool. He still is very deconditioned. He and his family have very poor understanding about his prognosis even though I discussed this with them numerous times. I strongly encouraged him to consider comfort measures only over the last 2-3 months that he has remained persistent that he would like to continue with treatment. He has significant issues with anxiety and seems to feel like he is very short of breath numerous times throughout the day. During his episodes his oxygen sats are fine so I think they are more of panic attacks. He is requiring [id number] narcotics. He is ambulating very little. Exam - Constitutional Vitals: Period Temp Pulse Resp BP Sys/Herr Pulse Ox Last 24 Hr 96.2 F-97.6 F 83-104 16-20 82-111/46-62 94-100 General appearance: no acute distress, under weight - Head Head Exam: Present: normocephalic, atraumatic - Eye Eye Exam: Present: EOMI. Absent: scleral icterus Pupils: Present: PERRL - ENT ENT exam: Present: normal exam, normal oropharynx - Neck Neck exam: Absent: lymphadenopathy, thyromegaly - Respiratory Respiratory exam: Present: CTAB. Absent: wheezes - Cardiovascular Cardiovascular exam: Present: RRR. Absent: JVD, systolic murmur - GI/Abdominal GI/Abdominal exam: Present: soft. Absent: ascites, distended, mass - Neurological Exam Neurological exam: Present: alert, oriented X3, CN II-XII intact - Psychiatric Psychiatric exam: Present: normal affect, normal mood - Skin Skin exam: Present: warm, dry Results - Labs CBC & BMP: 03/21/17 06:40 03/20/17 06:56 Lab Results: I have reviewed the past 24 hour labs
[2017-03-21 07:46] LABS: Albumin 2.3 G/DL (3.4-5.0); Bilirubin,Total 0.4 MG/DL (0.2-1.0); Calcium 8.4 MG/DL (8.5-10.1); Osmolality,Calculated 306.7 MOS/KG (273-304); Potassium 4.8 MMOL/L (3.5-5.1); Total Protein 5.7 G/DL (6.4-8.3)
[2017-03-21] MEDS: NYSTATIN 500,000 UNIT/5 ML UDCUP SWISH/SWAL SCH ×3 (08:15→20:46)
[2017-03-21] MEDS: methylPREDNISolone SOD SUC 125 MG/2 ML VIAL IV SCH ×2 (08:33→20:37)
[2017-03-21] MEDS: PANTOPRAZOLE 40 MG VIAL IV SCH (08:33)
[2017-03-21] MEDS ORDERED: PROPOFOL 200 MG/20 ML VIAL IV ONE (10:19)
[2017-03-21] MEDS ORDERED: LIDOCAINE 1% 5 ML VIAL ONE (10:19)
[2017-03-21] MEDS ORDERED: PHENYLEPHRINE 1 MG/10 ML SYRINGE IV ONE (10:19)
--- NOTE | 2017-03-21 10:44 | Operative Note ---
Date of procedure: 03/21/17 Pre-op diagnosis: Suspected GI blood loss on chronic anticoagulation Procedure: EGD with clip placement for control of bleeding. 72-year-old gentleman with Plavix anticoagulation therapy admitted with decrease in his hematocrit without gross bleeding now for EGD to further evaluate. He does report a prior history of peptic ulcer disease. Informed consent was obtained for the patient He was sedated with general anesthesia per anesthesia protocol. Patient was placed in left lateral decubitus position the Olympus flexible video upper endoscope was inserted into the oral cavity. Under direct vision the esophagus was intubated. Findings: Esophagus-normal esophageal mucosa throughout. No stricture no esophagitis or varices were seen. Stomach-large amount of retained food and secretions with no jess blood. Visible mucosa of the lesser curvature antrum and body of the stomach appeared normal limited visibility in the cardia due to retained food. Pylorus-normal Duodenum-on entering the duodenum there is evidence of fresh blood. No abnormalities seen in the bulb and duodenum. In the second portion of duodenum there appears to be an area of suspected AVM with ongoing active bleeding. Endo clips were applied 2 with good hemostasis. He is anticoagulation therapy precludes use of thermal devices. Good hemostasis was noted to be achieved from this lesion. No other focal areas of bleeding were identified. The procedure was terminated placed our procedure well Postop diagnosis: 1. 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 Continue to monitor H&H, hold Plavix, continue PPI treatment and transfuse as required. If continued blood loss is documented consideration of arteriography for embolization could be entertained as well as surgical oversewing. Hopefully when his blood is able to clot normally further blood loss can be avoided. He has high risk for continued anticoagulation treatment. Anesthesia: MAC Surgeon / Physician: Jer Marks Estimated blood loss: none Specimens: none sent Condition: stable Disposition: post procedure unit Results - Labs CBC & BMP: 03/21/17 06:40 03/21/17 06:40 Discharge Plan - Discharge Data Disposition: Disch To Home/Self Care - Discharge Medications New HYDROcodone/CHLORPHEN ER SUSP [Tussionex] 5 ml PO BID PRN #150 ml PRN Reason: Cough Levofloxacin Tab [Levaquin Tab] 500 mg PO Q24H #3 tablet Continue Clopidogrel [Plavix] 75 mg PO BEDTIME Aspirin [Ecotrin] 81 mg PO BEDTIME Terazosin [Hytrin] 2 mg PO BEDTIME Diphenoxylate HCl/Atropine [Diphenoxylate/Atropine 2.5-0.025 mg Tab] 1 each PO Q6H PRN PRN Reason: Diarrhea Ondansetron HCl 8 mg PO Q8H PRN PRN Reason: Nausea - Follow Up or Referral - Forms/Instructions
--- NOTE | 2017-03-21 10:47 | Anesthesia Post-Op ---
Anesthesia Post OP - Post Ansesthetic Evaluation Patient seen in post op: Yes Resp: within normal limits CV: within normal limits Mental: within normal limits Temp: within normal limits Thet-Gd-Nxhyohcom: within normal limits Nausea and Vomiting: within normal limits Pain: within normal limits
[2017-03-21] MEDS: TERAZOSIN 2 MG CAPSULE PO SCH (20:46)
[2017-03-22] MEDS ORDERED: HEPARIN LOCK FLUSH 500 UNIT/5 ML SYRINGE IV ONE (03:47)
[2017-03-22 07:37] LABS: Basophils % 0.1 % (0.0-0.8); Hematocrit 19.9 VOL% (42.0-52.0); Immature Granulocytes Absolute 0.15 #; Lymphocytes # 1.1 10*3/uL (1.4-4.0); Lymphocytes % 6.9 % (21.2-54.2); Mean Corpuscular HGB Conc 34.2 GM/DL (32-36); Mean Corpuscular Hemoglobin 32 PG (27-34); Mean Platelet Volume 10.8 FL (9.6-12.0); Monocytes # 0.8 10*3/uL (0.11-0.8); Monocytes % 5.4 % (1.7-12.7); NRBC # 0.02 10*3/uL; Neutrophils # 13.1 10*3/uL (1.4-7.4); Neutrophils % 86.6 % (38.7-73.9); Platelet Count 259 T/CUMM (130-400); Red Blood Count 2.14 MC/CUMM (3.8-5.5); Red Cell Distribution Width 17.1 % (9.3-17.3); White Blood Count 15.1 T/CUMM (4-12)
[2017-03-22 07:38] LABS: Hemoglobin 6.8 GM/DL (14.0-18.0)
[2017-03-22] MEDS: ALBUTEROL 1.25 MG/3 ML NEB RESP TX SCH (07:39)
[2017-03-22] MEDS ORDERED: SODIUM CHLORIDE 0.9% 250 ML IV PRN (07:42)
--- NOTE | 2017-03-22 07:42 | Oncology Progress Note ---
Assessment and Plan - Time spent with patient Time spent with patient: Greater than 30 minutes (1) GI bleed Status: Acute Current Visit: Yes (2) Metastatic lung carcinoma Status: Acute Current Visit: Yes (3) UTI (urinary tract infection) Status: Acute Current Visit: Yes (4) Debility, unspecified Status: Acute Current Visit: Yes (5) Weight loss Status: Acute Current Visit: Yes (6) Generalized weakness Status: Acute Current Visit: Yes Oncology Subjective PN Interval history: Mr. Hester seems to be doing well this morning. His EGD yesterday showed a bleeding AVM in the second portion of his duodenum. This area was clipped. I am still awaiting his CBC this morning to see if his hemoglobin has dropped any further. I would not be surprised if it has dropped some given that he did not have his EGD for a few hours after his morning labs yesterday. He may need another couple units of blood today so. He states he feels better today. Physical therapy has gotten him out of bed and he is ambulating some around the room. His appetite is improved. His oral candidiasis is also significantly improved. We will keep in the hospital for another 24-48 hours to keep track of his blood counts. Hopefully we will have him discharged by the end of the week. Exam - Constitutional Vitals: Period Temp Pulse Resp BP Sys/Herr Pulse Ox Last 24 Hr 96.3 F-97.1 F 77-94 14-24 91-126/52-64 97-119 General appearance: normal weight, no acute distress - Head Head Exam: Present: normocephalic, atraumatic - Eye Eye Exam: Present: EOMI Pupils: Present: PERRL - ENT ENT exam: Present: normal exam, normal oropharynx - Neck Neck exam: Absent: lymphadenopathy, thyromegaly - Respiratory Respiratory exam: Present: CTAB. Absent: decreased breath sounds, wheezes - Cardiovascular Cardiovascular exam: Present: RRR. Absent: JVD, systolic murmur - GI/Abdominal GI/Abdominal exam: Present: soft. Absent: ascites, distended, firm, mass - Neurological Exam Neurological exam: Present: alert, oriented X3 - Psychiatric Psychiatric exam: Present: normal affect, normal mood - Skin Skin exam: Present: warm, dry Results - Labs CBC & BMP: 03/22/17 06:42 03/21/17 06:40 Lab Results: I have reviewed the past 24 hour labs
[2017-03-22] MEDS: methylPREDNISolone SOD SUC 125 MG/2 ML VIAL IV SCH ×2 (09:09→20:23)
[2017-03-22] MEDS: DEXTROSE 5% NACL 0.45% 1,000 ML IV SCH (09:09)
[2017-03-22] MEDS: NYSTATIN 500,000 UNIT/5 ML UDCUP SWISH/SWAL SCH ×3 (09:10→20:23)
[2017-03-22] MEDS: PANTOPRAZOLE 40 MG VIAL IV SCH (09:10)
--- NOTE | 2017-03-22 09:42 | Gastrointestinal Progress Note ---
<Jose Eduardo Nolascoher Marisela - Last Filed: 03/22/17 09:38> Assessment and Plan (1) Anemia Status: Acute Assessment and plan: 03/22-HH drop noted as below. To be transfused 2 units of PRBC today. Continue to monitor at this time. Plan and addendum to follow by Dr Marks. 03/20-history of lung cancer with ongoing chemotherapy admitted with shortness of breath. Findings of drop in H&H since admission note 12/05 without overt bleeding. On Plavix therapy for history of stent placement. Elevated BUN/ creatinine ratio noted. Stools for occult blood are pending. Will obtain prior endoscopy records from [place]. Continue to monitor serial H&H. Hold Plavix. Consider upper endoscopy to further evaluate if patient remains stable. Plan an addendum to followed by Dr. Marks. Current Visit: Yes Gastroenterology - PN: Subj Interval history: CC: GI bleed Pt is awake and alert, sitting up in bed. EGD findings noted on yesterday with duodenal AVMs. Pt HH is noted today to drop at 12/05 without overt bleeding. He is to be transfused 2 units PRBC and will have had a total of 6 units since admission. Abdomen is soft, nontender. He denies any bowel movements since admission. He is tolerating his diet at this time as well. ROS: Denies SOB or chest pain Exam (Progress Note) - Constitutional Vitals: Period Temp Pulse Resp BP Sys/Herr Pulse Ox Last 24 Hr 96.3 F-97.1 F 67-94 14-24 91-126/52-64 89-119 General appearance: normal weight, no acute distress - Head Head exam: Present: normal inspection, normocephalic - Eye Eye exam: Present: other (lids and conjunctiva unremarkable). Absent: scleral icterus - ENT ENT exam: Present: normal exam, normal oropharynx - Neck Neck exam: Present: normal inspection - Respiratory Respiratory exam: Present: clear to auscultation bilaterally. Absent: rales, rhonchi, wheezes - Cardiovascular Cardiovascular exam: Present: regular rate and rhythm. Absent: diastolic murmur , JVD, systolic murmur - GI/Abdominal GI/Abdominal exam: Present: normal bowel sounds, soft. Absent: ascites, distended, mass, organomegaly, tenderness - Extremities Exam Extremities exam: Present: normal inspection, full ROM - Back Exam Back exam: Present: normal inspection - Neurological Exam Neurological exam: Present: alert, oriented X3 - Psychiatric Psychiatric exam: Present: normal affect, normal mood - Skin Skin exam: Present: normal color, warm, dry Results - Labs CBC & BMP: 03/22/17 06:42 03/21/17 06:40 Lab Results: I have reviewed the past 24 hour labs <Jer Marks - Last Filed: 03/22/17 22:18> Exam (Progress Note) - Constitutional Vitals: Period Temp Pulse Resp BP Sys/Herr Pulse Ox Last 24 Hr 96.6 F-98.6 F 62-120 14-48 102-122/46-68 89-100 Results - Labs CBC & BMP: 03/22/17 19:32 03/21/17 06:40
--- NOTE | 2017-03-22 13:02 | Physician Query Form ---
CLICK EDIT DOCUMENT TO SELECT QUERY ANSWER --> OK --> SIGN Shari Harrison RN Clinical Personal Caregiver W) [phone] (f) [phone] [email or web address]: Make your selection(s) from the choices in EACH section by typing an "x" and enter comments in the comment section. Please use your independent medical judgment in providing your response. This request does not imply that any particular answer is desired or expected. CLINICAL INDICATORS: (Providers should not edit this section) Based on documentation of "His hemoglobin this morning is 8.0 which is up from 6.5. This is an appropriate response to 2 units of blood. His EGD yesterday showed a bleeding AVM". H/H of 12/05 and increased to 02/08. Based on the above, could you clarify which of the following conditions you are evaluating, treating, and/or monitoring? ( x) Blood loss anemia (x ) acute ( ) chronic ( ) acute on chronic ( ) Acute blood loss anemia on baseline chronic anemia ( ) Acute blood loss anemia as a complication of a procedure ( ) Iron deficiency anemia not associated with blood loss ( ) Dilutional anemia due to IV fluids ( ) Anemia due to chemotherapy ( ) Anemia due to neoplastic disease ( ) Anemia due to chronic kidney disease ( ) Pernicious anemia ( ) Aplastic anemia ( ) Hemolytic anemia ( ) immune ( ) non-immune - please specify cause: ( ) Anemia due to other condition, please specify: ( ) Clinically unable to determine COMMENTS: PLEASE ALSO DOCUMENT RESPONSE IN PROGRESS NOTES AND/OR DISCHARGE SUMMARY Use of terms such as suspected, likely, or probable (associated with a specific diagnosis that is being evaluated, monitored, or treated as if it exists) are acceptable and can be restated in the discharge summary if not ruled out. MTDD
[2017-03-22] MEDS: METHOCARBAMOL 750 MG TABLET PO PRN (15:08)
[2017-03-22 19:55] LABS: Hematocrit 24.9 VOL% (42.0-52.0)
[2017-03-22 20:07] LABS: Hemoglobin 8.4 GM/DL (14.0-18.0)
[2017-03-22] MEDS: TERAZOSIN 2 MG CAPSULE PO SCH (20:23)
--- NOTE | 2017-03-22 21:36 | Order Completion Report ---
See report scanned to EMR
[2017-03-22] MEDS: traMADol 50 MG TABLET PO PRN (23:01)
[2017-03-23] MEDS: METHOCARBAMOL 750 MG TABLET PO PRN ×2 (00:39→20:57)
[2017-03-23 06:21] LABS: Basophils % 0.1 % (0.0-0.8); Hematocrit 25.3 VOL% (42.0-52.0); Hemoglobin 8.6 GM/DL (14.0-18.0); Immature Granulocytes % 2.6 %; Immature Granulocytes Absolute 0.43 #; Lymphocytes # 1.1 10*3/uL (1.4-4.0); Lymphocytes % 6.5 % (21.2-54.2); Mean Corpuscular Hemoglobin 31 PG (27-34); Mean Platelet Volume 10.9 FL (9.6-12.0); Monocytes # 0.6 10*3/uL (0.11-0.8); Monocytes % 3.8 % (1.7-12.7); NRBC # 0.02 10*3/uL; Neutrophils # 14.5 10*3/uL (1.4-7.4); Platelet Count 255 T/CUMM (130-400); Red Blood Count 2.75 MC/CUMM (3.8-5.5); Red Cell Distribution Width 17.2 % (9.3-17.3); White Blood Count 16.7 T/CUMM (4-12)
--- NOTE | 2017-03-23 07:55 | Oncology Progress Note ---
Assessment and Plan (1) GI bleed Status: Acute Current Visit: Yes (2) Metastatic lung carcinoma Status: Acute Current Visit: Yes (3) UTI (urinary tract infection) Status: Acute Current Visit: Yes (4) Debility, unspecified Status: Acute Current Visit: Yes (5) Weight loss Status: Acute Current Visit: Yes (6) Generalized weakness Status: Acute Current Visit: Yes Oncology Subjective PN Interval history: Mr. 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 This AVM has been clipped. He received 2 units of blood yesterday and his hemoglobin responded appropriately. He remained stable overnight which points toward resolution of his GI bleed. He is still quite weak. Physical therapy is working with him and is able to ambulate him around the room with assistance. He is not interested in going to a swing bed. He thinks he will be able to get around his house as long as he has a cane or a walker. I told him we will give him another 24 hours here in the hospital to make sure that his blood counts are stable and received 1 more day of physical therapy. My plan is to discharge him home tomorrow unless we have some type of setback today. His prognosis is very poor but he is still optimistic that he will recover. I think I am slowly getting him to understand how bad his situation is that he likely only has weeks to months to live. He is already survived over 2 years with metastatic lung cancer which is quite remarkable in itself. Exam - Constitutional Vitals: Period Temp Pulse Resp BP Sys/Herr Pulse Ox Last 24 Hr 97.2 F-98.6 F 62-120 16-48 104-122/46-68 93-100 General appearance: normal weight, no acute distress - Head Head Exam: Present: normocephalic, atraumatic - Eye Eye Exam: Present: EOMI Pupils: Present: PERRL - ENT ENT exam: Present: normal exam, normal oropharynx - Neck Neck exam: Absent: lymphadenopathy, thyromegaly - Respiratory Respiratory exam: Present: CTAB. Absent: wheezes - Cardiovascular Cardiovascular exam: Present: RRR. Absent: JVD, systolic murmur - GI/Abdominal GI/Abdominal exam: Present: soft. Absent: ascites, distended, firm, mass - Neurological Exam Neurological exam: Present: alert, oriented X3 - Psychiatric Psychiatric exam: Present: normal affect, normal mood - Skin Skin exam: Present: warm, dry Results - Labs CBC & BMP: 03/23/17 05:21 03/21/17 06:40 Lab Results: I have reviewed the past 24 hour labs
[2017-03-23] MEDS: methylPREDNISolone SOD SUC 40 MG/1 ML VIAL IV SCH ×2 (09:04→20:53)
[2017-03-23] MEDS: PANTOPRAZOLE 40 MG VIAL IV SCH (09:11)
[2017-03-23] MEDS: NYSTATIN 500,000 UNIT/5 ML UDCUP SWISH/SWAL SCH ×3 (09:26→20:53)
--- NOTE | 2017-03-23 10:08 | Gastrointestinal Progress Note ---
<Jose Eduardo Nolascoher Marisela - Last Filed: 03/23/17 10:06> Assessment and Plan (1) Anemia Status: Acute Assessment and plan: 03/23-H&H is stable at this time. No overt bleeding. Will recheck H&H in the morning. Plan an addendum to followed by Dr. Marks. 03/22-HH drop noted as below. To be transfused 2 units of PRBC today. Continue to monitor at this time. Plan and addendum to follow by Dr Marks. 03/20-history of lung cancer with ongoing chemotherapy admitted with shortness of breath. Findings of drop in H&H since admission note 12/05 without overt bleeding. On Plavix therapy for history of stent placement. Elevated BUN/ creatinine ratio noted. Stools for occult blood are pending. Will obtain prior endoscopy records from [place]. Continue to monitor serial H&H. Hold Plavix. Consider upper endoscopy to further evaluate if patient remains stable. Plan an addendum to followed by Dr. Marks. Current Visit: Yes Gastroenterology - PN: Subj Interval history: CC: Anemia Patient is seen awake alert sitting up in bed. States he rested well last night. He denies any overt bleeding. Denies any abdominal pain, nausea or vomiting. His H&H is holding at this time at 8. He has had a total of 6 units of packed red blood cells since admission. He has not had a bowel movement in a couple of days. He is tolerating his diet. Review Dr. Enamorado note and at this time plans are to keep patient overnight and recheck blood counts in the morning. If they remain stable he will be considered for discharge at that time. Abdomen is soft, nontender. ROS: Denies shortness of breath or chest pain Exam (Progress Note) - Constitutional Vitals: Period Temp Pulse Resp BP Sys/Herr Pulse Ox Last 24 Hr 97.2 F-98.6 F 62-120 16-48 104-122/46-68 93-100 General appearance: normal weight, no acute distress - Head Head exam: Present: normal inspection, normocephalic - Eye Eye exam: Present: other (Lids and conjunctive are unremarkable). Absent: scleral icterus - ENT ENT exam: Present: normal exam, normal oropharynx - Neck Neck exam: Present: normal inspection - Respiratory Respiratory exam: Present: clear to auscultation bilaterally. Absent: rales, rhonchi, wheezes - Cardiovascular Cardiovascular exam: Present: regular rate and rhythm. Absent: diastolic murmur , JVD, systolic murmur - GI/Abdominal GI/Abdominal exam: Present: normal bowel sounds, soft. Absent: ascites, distended, mass, organomegaly, tenderness - Extremities Exam Extremities exam: Present: normal inspection, full ROM - Back Exam Back exam: Present: normal inspection - Neurological Exam Neurological exam: Present: alert, oriented X3 - Psychiatric Psychiatric exam: Present: normal affect, normal mood - Skin Skin exam: Present: normal color, warm, dry Results - Labs CBC & BMP: 03/23/17 05:21 03/21/17 06:40 Lab Results: I have reviewed the past 24 hour labs <Jer Marks - Last Filed: 03/23/17 21:26> Exam (Progress Note) - Constitutional Vitals: Period Temp Pulse Resp BP Sys/Herr Pulse Ox Last 24 Hr 97.2 F-97.9 F 60-99 16-20 118-122/57-68 93-100 Results - Labs CBC & BMP: 03/23/17 05:21 03/21/17 06:40
[2017-03-23] MEDS: DEXTROSE 5% NACL 0.45% 1,000 ML IV SCH (10:09)
[2017-03-23] MEDS: methylPREDNISolone SOD SUC 125 MG/2 ML VIAL IV SCH (14:54)
[2017-03-23] MEDS: TERAZOSIN 2 MG CAPSULE PO SCH (20:52)
[2017-03-23] MEDS: traMADol 50 MG TABLET PO PRN (20:57)
[2017-03-24 04:46] LABS: Hematocrit 25.8 VOL% (42.0-52.0); Hemoglobin 8.6 GM/DL (14.0-18.0); Mean Corpuscular HGB Conc 33.3 GM/DL (32-36); Mean Corpuscular Hemoglobin 31 PG (27-34); Mean Corpuscular Volume 92.8 FL (87-102); Red Blood Count 2.78 MC/CUMM (3.8-5.5); White Blood Count 15.4 T/CUMM (4-12)
[2017-03-24 04:47] LABS: Basophils % 0.1 % (0.0-0.8); Immature Granulocytes % 2.6 %; Lymphocytes # 0.8 10*3/uL (1.4-4.0); Lymphocytes % 5.3 % (21.2-54.2); Mean Platelet Volume 11.1 FL (9.6-12.0); Monocytes # 0.8 10*3/uL (0.11-0.8); NRBC # 0.03 10*3/uL; Neutrophils # 13.4 10*3/uL (1.4-7.4); Platelet Count 270 T/CUMM (130-400); Red Cell Distribution Width 17.3 % (9.3-17.3)
--- NOTE | 2017-03-24 09:03 | Discharge Summary ---
Hospital Course - Hospital Course Hospital Course: Mr. Hester is a 72-year-old white male with metastatic lung cancer who has been treated with multiple lines of chemotherapy with most recently being Taxotere and Cyramza. He was admitted with weakness and failure to thrive. Ultimately he was found to have upper GI bleed. EGD done by Dr. Marks revealed a large duodenal AVM that was clipped. We followed him for 48 hours status post clipping and his hemoglobin remained stable. He did require 6 units of packed red cells during hospital stay. He states he feels much better now. His prognosis is very poor from a cancer standpoint but he continues to want chemotherapy. We will discharge him home today. I will asked the nurses to schedule a CT scan of his chest with IV contrast at [place] next week and then schedule an appointment to see me in clinic the following week. I am unsure if we will retry Natalie given his recent GI bleed.. 1. Please schedule a CT chest with IV contrast at [facility] in two weeks 2. Please schedule an appointment to see me in clinic with CBC, CMP, and CEA in two weeks, atleast one day after his CT so that results will be back Diagnosis - Discharge Diagnosis (1) GI bleed Status: Acute (2) Metastatic lung carcinoma Status: Acute (3) UTI (urinary tract infection) Status: Acute (4) Debility, unspecified Status: Acute (5) Weight loss Status: Acute (6) Generalized weakness Status: Acute Discharge Plan - Discharge Data Disposition: Disch To Home/Self Care Condition at Discharge: Stable Discharge Diet: advance to your usual diet Activity: increase activity as tolerated Hygiene: no restrictions - Discharge Medications New HYDROcodone/CHLORPHEN ER SUSP [Tussionex] 5 ml PO BID PRN #150 ml PRN Reason: Cough Continue Terazosin [Hytrin] 2 mg PO BEDTIME Diphenoxylate HCl/Atropine [Diphenoxylate/Atropine 2.5-0.025 mg Tab] 1 each PO Q6H PRN PRN Reason: Diarrhea Ondansetron HCl 8 mg PO Q8H PRN PRN Reason: Nausea Discontinued Clopidogrel [Plavix] 75 mg PO BEDTIME Aspirin [Ecotrin] 81 mg PO BEDTIME - Follow Up or Referral - Forms/Instructions Exam - Constitutional Vitals: Period Temp Pulse Resp BP Sys/Herr Pulse Ox Last 24 Hr 97.4 F-98.5 F 60-79 18-20 116-149/57-68 96-97 Discharge Results Procedures and tests throughout hospitalization: Pending Orders 03/20/17 09:00 Occult Blood, Stool Routine Labs on day of discharge: Labs from last 24 hours 03/24/17 03:16 WBC 15.4 H RBC 2.78 L Hgb 8.6 L Hct 25.8 L MCV 92.8 MCH 31 MCHC 33.3 RDW 17.3 Plt Count 270 MPV 11.1 Neut % (Auto) 87.0 H Lymph % (Auto) 5.3 L Mcpherson % (Auto) 5.0 Eos % (Auto) 0.0 Baso % (Auto) 0.1 Neut # (Auto) 13.4 H Lymph # (Auto) 0.8 L Mcpherson # (Auto) 0.8 Eos # (Auto) 0.0 Baso # (Auto) 0.0 Immature Gran % 2.6 Nucleated RBC % 0.2 Immature Gran # 0.40 Nucleated RBCs # 0.03 Immature Plt Fraction 0.0 DS: Provider Date of admission: 03/15/17 22:51 Primary care physician: Ike Anglin I Attending physician on admission: Stephan Kimball MD Consults: 03/15/17 23:42 Consult to Case Mgmt/Social Srvs [CONS] Routine Reason for Case Mgmt/Social Srvs: Rehab Hospice Referral 03/16/17 00:25 Consult to Dietitian [CONS] Routine Reason for Dietitian: Dietary Consult 03/20/17 07:46 Consult to Physical Therapy [CONS] Routine Reason for Physical Therapy: Evaluate and Treat 03/20/17 09:43 Consult to Physician [CONS] Routine Comment: ?gi bleed, HH dropping Consulting Provider: Jer Marks Discharging clinician: Stephan Kimball MD
[2017-03-24] MEDS ORDERED: HEPARIN LOCK FLUSH 500 UNIT/5 ML SYRINGE IV ONE (10:01)
[2017-03-24] MEDS: NYSTATIN 500,000 UNIT/5 ML UDCUP SWISH/SWAL SCH (10:46)
[2017-03-24] MEDS: PANTOPRAZOLE 40 MG VIAL IV SCH (10:46)
[2017-03-24] MEDS: methylPREDNISolone SOD SUC 40 MG/1 ML VIAL IV SCH (10:48)
[2017-03-24 11:39] VITALS: BP 144/65
--- NOTE | 2017-03-28 10:29 | Physician Query Form ---
CLICK EDIT DOCUMENT TO SELECT QUERY ANSWER --> OK --> SIGN Shari Harrison RN Clinical Chicken Tender W) [phone] (f) [phone] [email or web address] PROVIDERS: Make your selection(s) from the choices in EACH section by typing an "x" and enter comments in the comment section. Please use your independent medical judgment in providing your response. This request does not imply that any particular answer is desired or expected. CLINICAL INDICATORS: (Providers should not edit this section) Height: 6ft 2in Weight: 141 lbs Instrumentation Manager BMI: 17.8 Nutritional supplements: Boost Ash Worker notes: Severe unintentional weight loss (25% of body weight over 16 months), muscle wasting, loss of subcu fat stores, impaired skin integrity noted Other clinical notes: Acute weight loss There is conflicting documentation of "underweight" and "normal weight" in the record. Based on the above, which following choice most accurately represents the patient's nutritional status? ( x) Malnutrition ( ) mild ( x) moderate ( ) severe ( ) Protein calorie malnutrition ( ) mild ( ) moderate ( ) severe ( ) Emaciation due to malnutrition ( ) Nutritional marasmus ( ) Cachexia ( ) Underweight ( ) No nutritional deficiency ( ) Other, please specify: ( ) Clinically unable to determine Mild Malnutrition (BMI < 18.5, % Normal Body Weight 85-95%) Moderate Malnutrition (BMI < 17, % Normal Body Weight 75-85%) Severe Malnutrition (BMI < 16, % Normal Body Weight < 75%) Source: [place] COMMENTS: PLEASE ALSO DOCUMENT RESPONSE IN PROGRESS NOTES AND/OR DISCHARGE SUMMARY Use of terms such as suspected, likely, or probable (associated with a specific diagnosis that is being evaluated, monitored, or treated as if it exists) are acceptable and can be restated in the discharge summary if not ruled out. MTDD
== END 2017-03-24 13:00 | disposition home health service (06) | DRG 689 ==
LOC: N.ED 18:43 → N.EDINP 22:51 → N.4E 23:23
PROVIDERS: ADMIT Specialist; ATTEND Specialist

== ENCOUNTER 2017-06-26 13:28 | Inpatient (IN) ==
[2017-06-26] MEDS ORDERED: BENZTROPINE 2 MG/2 ML AMP IV PRN (15:18)
[2017-06-26] MEDS ORDERED: PROMETHAZINE INJ 25 MG in SODIUM CHLORIDE 0.9% 50 ML IV PRN (15:18)
[2017-06-26] MEDS ORDERED: MYLANTA/LIDO VISC 2:1 300 ML BOTTLE SWISH/SWAL PRN (15:18)
[2017-06-26] MEDS ORDERED: chlorproMAZINE 25 MG TABLET PO PRN (15:18)
[2017-06-26] MEDS ORDERED: guaiFENesin 200 MG/10 ML UDCUP PO PRN (15:18)
[2017-06-26] MEDS ORDERED: traMADol 50 MG TABLET PO PRN (15:18)
[2017-06-26] MEDS ORDERED: chlorproMAZINE INJ 50 MG in SODIUM CHLORIDE 0.9% 100 ML IV PRN (15:18)
[2017-06-26] MEDS ORDERED: ALUMINUM/MAGNES/SIMETH MAX STR 30 ML UDCUP PO PRN (15:18)
[2017-06-26] MEDS ORDERED: MYLANTA/LIDO VISC 2:1 300 ML BOTTLE SWISH/SPIT PRN (15:18)
[2017-06-26] MEDS ORDERED: ALPRAZolam 0.25 MG TABLET PO PRN (15:18)
[2017-06-26] MEDS ORDERED: ACETAMINOPHEN 325 MG TABLET PO PRN (15:18)
[2017-06-26] MEDS ORDERED: diphenhydrAMINE CAP 25 MG CAPSULE PO PRN (15:18)
[2017-06-26] MEDS ORDERED: LACTULOSE 20 GM/30 ML UDCUP PO PRN (15:18)
[2017-06-26] MEDS ORDERED: MAGNESIUM HYDROXIDE SUSP 30 ML UDCUP PO PRN (15:18)
[2017-06-26] MEDS ORDERED: LOPERAMIDE 2 MG CAPSULE PO PRN ×2 (15:18)
[2017-06-26] MEDS: ONDANSETRON 4 MG/2 ML VIAL IV PRN (15:27)
[2017-06-26] MEDS: SODIUM CHLORIDE 0.9% 1,000 ML IV SCH (16:42)
[2017-06-26] MEDS: chlorproMAZINE INJ 25 MG in SODIUM CHLORIDE 0.9% 100 ML IV PRN (17:57)
[2017-06-27] MEDS: SODIUM CHLORIDE 0.9% 1,000 ML IV SCH (03:22)
[2017-06-27] MEDS: ONDANSETRON 4 MG/2 ML VIAL IV PRN (06:26)
[2017-06-27 07:19] LABS: Basophils # 0.1 10*3/uL (0.0-0.2); Basophils % 1.9 % (0.0-0.8); Eosinophils # 0.1 10*3/uL (0.0-0.87); Eosinophils % 3.5 % (0.00-10.9); Hematocrit 27.1 VOL% (42.0-52.0); Hemoglobin 8.3 GM/DL (14.0-18.0); Immature Granulocytes % 0.8 %; Immature Granulocytes Absolute 0.02 #; Lymphocytes # 0.8 10*3/uL (1.4-4.0); Lymphocytes % 28.8 % (21.2-54.2); Mean Corpuscular HGB Conc 30.6 GM/DL (32-36); Mean Corpuscular Hemoglobin 26 PG (27-34); Mean Corpuscular Volume 86.3 FL (87-102); Mean Platelet Volume 11.7 FL (9.6-12.0); Monocytes # 0.1 10*3/uL (0.11-0.8); Monocytes % 3.5 % (1.7-12.7); Neutrophils # 1.6 10*3/uL (1.4-7.4); Neutrophils % 61.5 % (38.7-73.9); Platelet Count 164 T/CUMM (130-400); Red Blood Count 3.14 MC/CUMM (3.8-5.5); White Blood Count 2.6 T/CUMM (4-12)
[2017-06-27 07:43] LABS: Alanine Aminotransferase < 9 U/L (16-61); Albumin 2.4 G/DL (3.4-5.0); Alkaline Phosphatase 62 U/L (45-117); Aspartate Amino Transferase 20 U/L (0-37); Blood Urea Nitrogen 23 MG/DL (7-18); Calcium 7.8 MG/DL (8.5-10.1); Giant Platelets Few; Glucose 64 MG/DL (74-106); Hypochromasia 1+; Magnesium 2.4 MG/DL (1.8-2.4); Osmolality,Calculated 289.7 MOS/KG (273-304); Ovalocytes Slight; Platelet Estimate Normal; Potassium 3.4 MMOL/L (3.5-5.1); Sodium 145 MMOL/L (136-145); Total Protein 5.9 G/DL (6.4-8.3)
[2017-06-27] MEDS ORDERED: DEXAMETHASONE 10 MG/1 ML VIAL IV ONE (07:43)
[2017-06-27] MEDS: PANTOPRAZOLE 40 MG VIAL IV SCH (08:19)
[2017-06-27] MEDS: LEVOFLOXACIN INJ 500 MG in PREMIX 1 EACH IV SCH (08:29)
[2017-06-27] MEDS: DEXT 5% NACL 0.45% KCL 20 MEQ 20 MEQ/1,000 ML BAG IV SCH (09:31)
[2017-06-27] MEDS ORDERED: ONDANSETRON 4 MG TABLET PO PRN (10:27)
[2017-06-27] MEDS ORDERED: DIPHENOXYLATE/ATROPINE 2.5-0.025 MG TABLET PO PRN (10:30)
[2017-06-27] MEDS ORDERED: HYDROcodone/CHLORPHENIRAMINE ER 5 ML UDCUP PO PRN (10:30)
[2017-06-27] MEDS: METHOCARBAMOL 500 MG TABLET PO PRN ×2 (10:44→20:04)
[2017-06-27] MEDS: chlorproMAZINE INJ 25 MG in SODIUM CHLORIDE 0.9% 100 ML IV PRN (10:44)
[2017-06-27] MEDS ORDERED: METHOCARBAMOL 500 MG TABLET PO SCH (13:00)
[2017-06-27] MEDS: TEMAZEPAM 7.5 MG CAPSULE PO PRN ×2 (20:04→21:26)
[2017-06-27] MEDS ORDERED: TERAZOSIN 2 MG CAPSULE PO SCH (21:00)
[2017-06-28] MEDS: DEXT 5% NACL 0.45% KCL 20 MEQ 20 MEQ/1,000 ML BAG IV SCH ×2 (00:12→14:24)
[2017-06-28 05:06] LABS: Basophils % 1.4 % (0.0-0.8); Hematocrit 27.9 VOL% (42.0-52.0); Hemoglobin 8.6 GM/DL (14.0-18.0); Immature Granulocytes % 1.4 %; Immature Granulocytes Absolute 0.03 #; Lymphocytes # 0.5 10*3/uL (1.4-4.0); Lymphocytes % 21.5 % (21.2-54.2); Mean Corpuscular HGB Conc 30.8 GM/DL (32-36); Mean Corpuscular Hemoglobin 27 PG (27-34); Mean Corpuscular Volume 85.8 FL (87-102); Mean Platelet Volume 11.1 FL (9.6-12.0); Monocytes # 0.1 10*3/uL (0.11-0.8); Monocytes % 3.8 % (1.7-12.7); Neutrophils # 1.5 10*3/uL (1.4-7.4); Neutrophils % 71.9 % (38.7-73.9); Platelet Count 146 T/CUMM (130-400); Red Blood Count 3.25 MC/CUMM (3.8-5.5); Red Cell Distribution Width 16.4 % (9.3-17.3); White Blood Count 2.1 T/CUMM (4-12)
[2017-06-28 05:28] LABS: Calcium 7.6 MG/DL (8.5-10.1); Magnesium 2.2 MG/DL (1.8-2.4); Osmolality,Calculated 291.1 MOS/KG (273-304)
[2017-06-28] MEDS ORDERED: PALONOSETRON 0.25 MG/5 ML VIAL IV ONE (07:55)
[2017-06-28] MEDS: DIPHENOXYLATE/ATROPINE 2.5-0.025 MG TABLET PO SCH ×2 (09:53→21:29)
[2017-06-28] MEDS: METHOCARBAMOL 500 MG TABLET PO PRN ×2 (09:53→14:24)
[2017-06-28] MEDS: LEVOFLOXACIN INJ 500 MG in PREMIX 1 EACH IV SCH (09:53)
[2017-06-28] MEDS: PANTOPRAZOLE 40 MG VIAL IV SCH (09:54)
[2017-06-28] MEDS: TEMAZEPAM 7.5 MG CAPSULE PO PRN (21:29)
[2017-06-28] MEDS: TERAZOSIN 2 MG CAPSULE PO PRN (21:29)
[2017-06-29] MEDS: TEMAZEPAM 7.5 MG CAPSULE PO PRN ×3 (00:09→22:29)
[2017-06-29] MEDS: DEXT 5% NACL 0.45% KCL 20 MEQ 20 MEQ/1,000 ML BAG IV SCH ×2 (05:13→19:56)
[2017-06-29] MEDS: PANTOPRAZOLE 40 MG VIAL IV SCH (09:57)
[2017-06-29] MEDS: LEVOFLOXACIN INJ 500 MG in PREMIX 1 EACH IV SCH (09:57)
[2017-06-29] MEDS: METHOCARBAMOL 500 MG TABLET PO PRN (09:57)
[2017-06-29] MEDS: DIPHENOXYLATE/ATROPINE 2.5-0.025 MG TABLET PO SCH ×2 (09:58→21:22)
[2017-06-29] MEDS: TERAZOSIN 2 MG CAPSULE PO PRN (21:25)
[2017-06-30 05:28] LABS: Basophils % 0.6 % (0.0-0.8); Eosinophils % 0.6 % (0.00-10.9); Hemoglobin 8.5 GM/DL (14.0-18.0); Immature Granulocytes % 0.6 %; Immature Granulocytes Absolute 0.02 #; Lymphocytes # 1.6 10*3/uL (1.4-4.0); Lymphocytes % 46.5 % (21.2-54.2); Mean Corpuscular HGB Conc 31.5 GM/DL (32-36); Mean Corpuscular Hemoglobin 26 PG (27-34); Mean Corpuscular Volume 83.9 FL (87-102); Mean Platelet Volume 11.4 FL (9.6-12.0); Monocytes # 0.4 10*3/uL (0.11-0.8); Monocytes % 12.9 % (1.7-12.7); Neutrophils # 1.3 10*3/uL (1.4-7.4); Neutrophils % 38.8 % (38.7-73.9); Platelet Count 170 T/CUMM (130-400); Red Blood Count 3.22 MC/CUMM (3.8-5.5); Red Cell Distribution Width 16.5 % (9.3-17.3); White Blood Count 3.4 T/CUMM (4-12)
[2017-06-30 05:59] LABS: Calcium 7.8 MG/DL (8.5-10.1); Osmolality,Calculated 280.1 MOS/KG (273-304); Potassium 3.9 MMOL/L (3.5-5.1)
[2017-06-30 07:23] LABS: Band Neutrophils 8 % (0-10); Lymphocytes 51 % (20-55); Segmented Neutrophils 35 % (50-85); Total Cells Counted 100
[2017-06-30 07:44] LABS: Hypochromasia 1+; Microcytosis 1+
[2017-06-30 07:45] LABS: Platelet Estimate Adequate
[2017-06-30] MEDS: LEVOFLOXACIN INJ 500 MG in PREMIX 1 EACH IV SCH (10:50)
[2017-06-30] MEDS: PANTOPRAZOLE 40 MG VIAL IV SCH (10:51)
[2017-06-30] MEDS: DIPHENOXYLATE/ATROPINE 2.5-0.025 MG TABLET PO SCH (10:51)
[2017-06-30] MEDS ORDERED: HEPARIN LOCK FLUSH 500 UNIT/5 ML SYRINGE IV ONE (11:27)
[2017-06-30 13:26] VITALS: BP 114/69
== END 2017-06-30 12:30 | disposition home or self-care (01) | DRG 392 ==
LOC: N.4E 14:18
PROVIDERS: ADMIT Specialist; ATTEND Specialist

== ENCOUNTER 2017-08-11 13:04 | Inpatient (IN) ==
[2017-08-11] MEDS ORDERED: SODIUM CHLORIDE 0.9% 1,000 ML IV STA ×2 (13:44→15:35)
[2017-08-11 14:31] LABS: Basophils # 0.1 10*3/uL (0.0-0.2); Basophils % 1.7 % (0.0-0.8); Eosinophils % 0.3 % (0.00-10.9); Hematocrit 29.1 VOL% (42.0-52.0); Immature Granulocytes % 1.4 %; Immature Granulocytes Absolute 0.04 #; Lymphocytes # 1.1 10*3/uL (1.4-4.0); Lymphocytes % 36.2 % (21.2-54.2); Mean Corpuscular HGB Conc 30.9 GM/DL (32-36); Mean Corpuscular Hemoglobin 26 PG (27-34); Mean Corpuscular Volume 84.6 FL (87-102); Monocytes # 0.3 10*3/uL (0.11-0.8); Monocytes % 11.3 % (1.7-12.7); Neutrophils # 1.4 10*3/uL (1.4-7.4); Neutrophils % 49.1 % (38.7-73.9); Platelet Count 219 T/CUMM (130-400); Red Blood Count 3.44 MC/CUMM (3.8-5.5); Red Cell Distribution Width 18.1 % (9.3-17.3); White Blood Count 2.9 T/CUMM (4-12)
[2017-08-11 14:54] LABS: Albumin 2.3 G/DL (3.4-5.0); Bilirubin,Total 0.6 MG/DL (0.2-1.0); Calcium 8.4 MG/DL (8.5-10.1); Osmolality,Calculated 281.4 MOS/KG (273-304); Potassium 4.6 MMOL/L (3.5-5.1); Total Protein 6.4 G/DL (6.4-8.3)
[2017-08-11 15:00] LABS: Band Neutrophils 4 % (0-10); Eosinophils 2 % (0-10); Lymphocytes 33 % (20-55); Platelet Estimate Normal; Segmented Neutrophils 55 % (50-85); Total Cells Counted 100
[2017-08-11 15:01] LABS: Hypochromasia Slight; Microcytosis Slight
[2017-08-11 15:49] LABS: Apearance,Urine CLOUDY (Clear); Bacteria,Urine Occasional /HPF (Few); Bilirubin,Urine Negative (Negative); Blood, Urine Negative (Negative); Glucose,Urine (UA) Negative (Negative); Ketones,Urine 5 mg/dL (Negative); Mucus,Urine Occasional /LPF (Occasional); Nitrite,Urine Negative (Negative); Protein,Urine Negative; RBC,Urine 4 /HPF (0-4); Urine Color Amber (Yellow); Urine Specific Gravity 1.016 (1.001-1.035); WBC,Urine 39 /HPF (0-6)
[2017-08-11] MEDS ORDERED: ONDANSETRON 4 MG/2 ML VIAL ONE (16:44)
[2017-08-11] MEDS ORDERED: ONDANSETRON 4 MG/2 ML VIAL IV STA (16:47)
[2017-08-11] MEDS ORDERED: chlorproMAZINE INJ 50 MG in SODIUM CHLORIDE 0.9% 100 ML IV PRN (17:31)
[2017-08-11] MEDS ORDERED: guaiFENesin 200 MG/10 ML UDCUP PO PRN (17:31)
[2017-08-11] MEDS ORDERED: MYLANTA/LIDO VISC 2:1 300 ML BOTTLE SWISH/SWAL PRN ×2 (17:31→22:27)
[2017-08-11] MEDS ORDERED: PROMETHAZINE INJ 25 MG in SODIUM CHLORIDE 0.9% 50 ML IV PRN (17:31)
[2017-08-11] MEDS ORDERED: chlorproMAZINE INJ 25 MG in SODIUM CHLORIDE 0.9% 100 ML IV PRN (17:31)
[2017-08-11] MEDS ORDERED: LOPERAMIDE 2 MG CAPSULE PO PRN ×4 (17:31→22:27)
[2017-08-11] MEDS ORDERED: ONDANSETRON 4 MG/2 ML VIAL IV PRN (17:31)
[2017-08-11] MEDS ORDERED: LACTULOSE 20 GM/30 ML UDCUP PO PRN ×2 (17:31→22:27)
[2017-08-11] MEDS ORDERED: ALUMINUM/MAGNES/SIMETH MAX STR 30 ML UDCUP PO PRN ×2 (17:31→22:27)
[2017-08-11] MEDS ORDERED: traMADol 50 MG TABLET PO PRN ×2 (17:31→22:27)
[2017-08-11] MEDS ORDERED: BENZTROPINE 2 MG/2 ML AMP IV PRN ×2 (17:31→22:27)
[2017-08-11] MEDS ORDERED: ACETAMINOPHEN 325 MG TABLET PO PRN ×2 (17:31→22:27)
[2017-08-11] MEDS ORDERED: TEMAZEPAM 7.5 MG CAPSULE PO PRN (17:31)
[2017-08-11] MEDS ORDERED: MYLANTA/LIDO VISC 2:1 300 ML BOTTLE SWISH/SPIT PRN ×2 (17:31→22:27)
[2017-08-11] MEDS ORDERED: diphenhydrAMINE CAP 25 MG CAPSULE PO PRN ×2 (17:31→22:27)
[2017-08-11] MEDS ORDERED: chlorproMAZINE 25 MG TABLET PO PRN (17:31)
[2017-08-11] MEDS ORDERED: ALPRAZolam 0.25 MG TABLET PO PRN ×2 (17:31→22:27)
[2017-08-11] MEDS ORDERED: MAGNESIUM HYDROXIDE SUSP 30 ML UDCUP PO PRN ×2 (17:31→22:27)
[2017-08-11] MEDS ORDERED: SODIUM CHLORIDE 0.9% 1,000 ML IV SCH (18:00)
[2017-08-11] MEDS: ONDANSETRON 4 MG/2 ML VIAL IV PRN (23:13)
[2017-08-11] MEDS: TEMAZEPAM 7.5 MG CAPSULE PO PRN (23:14)
[2017-08-11] MEDS: guaiFENesin 200 MG/10 ML UDCUP PO PRN (23:15)
[2017-08-12 06:33] LABS: Bilirubin,Total 0.8 MG/DL (0.2-1.0); Calcium 8.1 MG/DL (8.5-10.1); Osmolality,Calculated 283.1 MOS/KG (273-304); Total Protein 5.6 G/DL (6.4-8.3)
[2017-08-12 06:47] LABS: Basophils # 0.1 10*3/uL (0.0-0.2); Basophils % 2.3 % (0.0-0.8); Eosinophils # 0.1 10*3/uL (0.0-0.87); Eosinophils % 1.9 % (0.00-10.9); Hematocrit 26.4 VOL% (42.0-52.0); Hemoglobin 8.3 GM/DL (14.0-18.0); Immature Granulocytes % 1.9 %; Immature Granulocytes Absolute 0.05 #; Lymphocytes # 1.2 10*3/uL (1.4-4.0); Lymphocytes % 44.6 % (21.2-54.2); Mean Corpuscular HGB Conc 31.4 GM/DL (32-36); Mean Corpuscular Hemoglobin 26 PG (27-34); Mean Corpuscular Volume 83.5 FL (87-102); Mean Platelet Volume 10.9 FL (9.6-12.0); Monocytes # 0.4 10*3/uL (0.11-0.8); Monocytes % 16.3 % (1.7-12.7); Neutrophils # 0.9 10*3/uL (1.4-7.4); Platelet Count 209 T/CUMM (130-400); Red Blood Count 3.16 MC/CUMM (3.8-5.5); Red Cell Distribution Width 18.3 % (9.3-17.3); White Blood Count 2.6 T/CUMM (4-12)
[2017-08-12 07:38] LABS: Atypical Lymphocytes Few; Eosinophils 1 % (0-10); Giant Platelets Few; Hypochromasia 1+; Lymphocytes 41 % (20-55); Microcytosis Slight; Platelet Estimate Adequate; Segmented Neutrophils 41 % (50-85); Total Cells Counted 100
[2017-08-12] MEDS ORDERED: DIPHENOXYLATE/ATROPINE 2.5-0.025 MG TABLET PO PRN (09:20)
[2017-08-12] MEDS: SODIUM CHLORIDE 0.9% 1,000 ML IV SCH (09:49)
[2017-08-12] MEDS: cefTRIAXone 1,000 MG in SYRINGE 1 EACH IV SCH (09:50)
[2017-08-12] MEDS: ONDANSETRON 4 MG/2 ML VIAL IV PRN ×2 (09:54→16:06)
[2017-08-12] MEDS: TEMAZEPAM 7.5 MG CAPSULE PO PRN (20:27)
[2017-08-12] MEDS: METHOCARBAMOL 500 MG TABLET PO SCH (20:28)
[2017-08-12] MEDS: TERAZOSIN 2 MG CAPSULE PO SCH (20:28)
[2017-08-13 06:03] LABS: Basophils % 1.2 % (0.0-0.8); Eosinophils % 1.6 % (0.00-10.9); Hematocrit 26.5 VOL% (42.0-52.0); Hemoglobin 8.4 GM/DL (14.0-18.0); Immature Granulocytes % 0.4 %; Immature Granulocytes Absolute 0.01 #; Lymphocytes # 1.3 10*3/uL (1.4-4.0); Mean Corpuscular HGB Conc 31.7 GM/DL (32-36); Mean Corpuscular Hemoglobin 27 PG (27-34); Mean Corpuscular Volume 84.1 FL (87-102); Mean Platelet Volume 10.6 FL (9.6-12.0); Monocytes # 0.6 10*3/uL (0.11-0.8); Monocytes % 23.3 % (1.7-12.7); Neutrophils # 0.6 10*3/uL (1.4-7.4); Neutrophils % 22.5 % (38.7-73.9); Platelet Count 210 T/CUMM (130-400); Red Blood Count 3.15 MC/CUMM (3.8-5.5); Red Cell Distribution Width 18.2 % (9.3-17.3); White Blood Count 2.5 T/CUMM (4-12)
[2017-08-13 06:19] LABS: Calcium 8.1 MG/DL (8.5-10.1); Osmolality,Calculated 279.3 MOS/KG (273-304); Potassium 4.3 MMOL/L (3.5-5.1)
[2017-08-13 07:45] LABS: Atypical Lymphocytes Few; Eosinophils 5 % (0-10); Giant Platelets Few; Hypochromasia 1+; Lymphocytes 52 % (20-55); Microcytosis Slight; Ovalocytes Slight; Platelet Estimate Adequate; Segmented Neutrophils 26 % (50-85); Total Cells Counted 100
[2017-08-13] MEDS: cefTRIAXone 1,000 MG in SYRINGE 1 EACH IV SCH (10:19)
[2017-08-13] MEDS: HYDROcodone/CHLORPHENIRAMINE ER 5 ML UDCUP PO PRN (10:32)
[2017-08-13] MEDS: SODIUM CHLORIDE 0.9% 1,000 ML IV SCH (10:33)
[2017-08-13] MEDS ORDERED: FILGRASTIM-SNDZ 300 MCG/0.5 ML SYRINGE SUBCUT SCH (11:00)
[2017-08-13] MEDS: guaiFENesin 200 MG/10 ML UDCUP PO PRN ×2 (13:26→19:59)
[2017-08-13] MEDS: TERAZOSIN 2 MG CAPSULE PO SCH (19:59)
[2017-08-13] MEDS: METHOCARBAMOL 500 MG TABLET PO SCH (20:00)
[2017-08-13] MEDS: TEMAZEPAM 7.5 MG CAPSULE PO PRN (20:00)
[2017-08-14 06:55] LABS: Basophils % 0.9 % (0.0-0.8); Eosinophils % 0.7 % (0.00-10.9); Hematocrit 28.4 VOL% (42.0-52.0); Hemoglobin 8.6 GM/DL (14.0-18.0); Immature Granulocytes % 0.7 %; Immature Granulocytes Absolute 0.03 #; Lymphocytes # 1.2 10*3/uL (1.4-4.0); Lymphocytes % 27.9 % (21.2-54.2); Mean Corpuscular HGB Conc 30.3 GM/DL (32-36); Mean Corpuscular Hemoglobin 26 PG (27-34); Mean Corpuscular Volume 85.8 FL (87-102); Mean Platelet Volume 10.3 FL (9.6-12.0); Monocytes # 0.8 10*3/uL (0.11-0.8); Monocytes % 17.8 % (1.7-12.7); Neutrophils # 2.2 10*3/uL (1.4-7.4); Platelet Count 188 T/CUMM (130-400); Red Blood Count 3.31 MC/CUMM (3.8-5.5); White Blood Count 4.3 T/CUMM (4-12)
[2017-08-14 07:16] LABS: Band Neutrophils 1 % (0-10); Eosinophils 2 % (0-10); Giant Platelets Few; Hypochromasia 1+; Lymphocytes 31 % (20-55); Platelet Estimate Normal; Segmented Neutrophils 49 % (50-85); Total Cells Counted 100
[2017-08-14 07:17] LABS: Atypical Lymphocytes Few; Microcytosis Slight
[2017-08-14 07:30] LABS: Calcium 7.6 MG/DL (8.5-10.1); Osmolality,Calculated 273.5 MOS/KG (273-304); Potassium 3.8 MMOL/L (3.5-5.1)
[2017-08-14] MEDS: VANCOMYCIN INJ 1,000 MG in SODIUM CHLORIDE 0.9% 250 ML IV SCH ×2 (08:55→20:23)
[2017-08-14] MEDS: SULFAMETHOX/TRIMETHOPRIM 800-160 MG TABLET PO SCH ×2 (08:55→20:23)
[2017-08-14] MEDS: HYDROcodone/CHLORPHENIRAMINE ER 5 ML UDCUP PO PRN ×2 (09:45→20:31)
[2017-08-14] MEDS: ONDANSETRON 4 MG TABLET PO PRN (11:37)
[2017-08-14] MEDS: SODIUM CHLORIDE 0.9% 1,000 ML IV SCH (11:38)
[2017-08-14] MEDS: TERAZOSIN 2 MG CAPSULE PO SCH (20:23)
[2017-08-14] MEDS: METHOCARBAMOL 500 MG TABLET PO SCH (20:23)
[2017-08-14] MEDS: ZINC OXIDE PASTE 113 GM TUBE TOP SCH (20:25)
[2017-08-15 07:59] LABS: Calcium 7.9 MG/DL (8.5-10.1); Osmolality,Calculated 272.5 MOS/KG (273-304); Potassium 4.1 MMOL/L (3.5-5.1)
[2017-08-15 08:13] LABS: Basophils # 0.1 10*3/uL (0.0-0.2); Basophils % 1.3 % (0.0-0.8); Eosinophils # 0.1 10*3/uL (0.0-0.87); Eosinophils % 1.3 % (0.00-10.9); Hematocrit 27.6 VOL% (42.0-52.0); Hemoglobin 8.5 GM/DL (14.0-18.0); Immature Granulocytes % 0.4 %; Immature Granulocytes Absolute 0.02 #; Lymphocytes # 1.7 10*3/uL (1.4-4.0); Lymphocytes % 30.7 % (21.2-54.2); Mean Corpuscular HGB Conc 30.8 GM/DL (32-36); Mean Corpuscular Hemoglobin 26 PG (27-34); Mean Corpuscular Volume 83.9 FL (87-102); Mean Platelet Volume 10.4 FL (9.6-12.0); Monocytes # 0.9 10*3/uL (0.11-0.8); Monocytes % 16.1 % (1.7-12.7); Neutrophils # 2.8 10*3/uL (1.4-7.4); Neutrophils % 50.2 % (38.7-73.9); Platelet Count 196 T/CUMM (130-400); Red Blood Count 3.29 MC/CUMM (3.8-5.5); Red Cell Distribution Width 17.9 % (9.3-17.3); White Blood Count 5.5 T/CUMM (4-12)
[2017-08-15 08:41] LABS: Eosinophils 1 % (0-10); Hypochromasia 1+; Lymphocytes 23 % (20-55); Segmented Neutrophils 63 % (50-85); Total Cells Counted 100
[2017-08-15] MEDS: SULFAMETHOX/TRIMETHOPRIM 800-160 MG TABLET PO SCH ×2 (08:41→21:08)
[2017-08-15] MEDS: VANCOMYCIN INJ 1,000 MG in SODIUM CHLORIDE 0.9% 250 ML IV SCH ×2 (08:41→21:07)
[2017-08-15 08:42] LABS: Microcytosis 1+; Platelet Estimate Adequate
[2017-08-15] MEDS: ZINC OXIDE PASTE 113 GM TUBE TOP SCH ×2 (08:45→21:08)
[2017-08-15] MEDS: SODIUM CHLORIDE 0.9% 1,000 ML IV SCH (08:45)
[2017-08-15] MEDS: guaiFENesin 200 MG/10 ML UDCUP PO PRN (10:32)
[2017-08-15] MEDS: ONDANSETRON 4 MG TABLET PO PRN (11:09)
[2017-08-15] MEDS: ONDANSETRON 4 MG/2 ML VIAL IV PRN (17:04)
[2017-08-15] MEDS: TERAZOSIN 2 MG CAPSULE PO SCH (21:08)
[2017-08-15] MEDS: TEMAZEPAM 7.5 MG CAPSULE PO PRN (21:08)
[2017-08-15] MEDS: METHOCARBAMOL 500 MG TABLET PO SCH (21:08)
[2017-08-16] MEDS: ZINC OXIDE PASTE 113 GM TUBE TOP SCH ×2 (09:37→20:52)
[2017-08-16] MEDS: SULFAMETHOX/TRIMETHOPRIM 800-160 MG TABLET PO SCH ×2 (09:37→20:52)
[2017-08-16] MEDS: guaiFENesin 200 MG/10 ML UDCUP PO PRN ×2 (13:50→18:52)
[2017-08-16] MEDS: SODIUM CHLORIDE 0.9% 1,000 ML IV SCH (13:51)
[2017-08-16] MEDS: ONDANSETRON 4 MG/2 ML VIAL IV PRN ×2 (14:16→18:32)
[2017-08-16] MEDS: TERAZOSIN 2 MG CAPSULE PO SCH (20:52)
[2017-08-16] MEDS: METHOCARBAMOL 500 MG TABLET PO SCH (20:52)
[2017-08-16] MEDS ORDERED: ONDANSETRON 4 MG/2 ML VIAL IV ONE (23:30)
[2017-08-16] MEDS: TEMAZEPAM 7.5 MG CAPSULE PO PRN (23:44)
[2017-08-17] MEDS ORDERED: DEXAMETHASONE 10 MG/1 ML VIAL IV ONE (07:15)
[2017-08-17] MEDS: SULFAMETHOX/TRIMETHOPRIM 800-160 MG TABLET PO SCH ×2 (09:00→22:02)
[2017-08-17] MEDS: ZINC OXIDE PASTE 113 GM TUBE TOP SCH ×2 (09:00→22:02)
[2017-08-17] MEDS: METHOCARBAMOL 500 MG TABLET PO SCH (22:02)
[2017-08-17] MEDS: SODIUM CHLORIDE 0.9% 1,000 ML IV SCH (22:02)
[2017-08-17] MEDS: TERAZOSIN 2 MG CAPSULE PO SCH (22:02)
[2017-08-17] MEDS: TEMAZEPAM 7.5 MG CAPSULE PO PRN (23:16)
[2017-08-18] MEDS ORDERED: DEXAMETHASONE 10 MG/1 ML VIAL IV ONE (07:16)
[2017-08-18 08:12] VITALS: BP 122/64
[2017-08-18] MEDS: SULFAMETHOX/TRIMETHOPRIM 800-160 MG TABLET PO SCH (09:19)
[2017-08-18] MEDS: ZINC OXIDE PASTE 113 GM TUBE TOP SCH (09:20)
[2017-08-18] MEDS ORDERED: HEPARIN LOCK FLUSH 500 UNIT/5 ML SYRINGE IV ONE (09:27)
[2017-08-18] MEDS: SODIUM CHLORIDE 0.9% 1,000 ML IV SCH (10:34)
== END 2017-08-18 11:20 | disposition home or self-care (01) | DRG 690 ==
LOC: N.ED 13:04 → N.EDINP 17:31 → N.4E 18:55
PROVIDERS: ADMIT Specialist; ATTEND Specialist

== ENCOUNTER 2017-08-21 12:54 | Inpatient (IN) ==
[2017-08-21] MEDS ORDERED: ONDANSETRON 4 MG/2 ML VIAL IV STA (13:22)
[2017-08-21] MEDS ORDERED: SODIUM CHLORIDE 0.9% 1,000 ML IV STA (13:22)
[2017-08-21] MEDS ORDERED: ONDANSETRON 4 MG/2 ML VIAL ONE (14:05)
[2017-08-21 15:34] LABS: Eosinophils % 0.1 % (0.00-10.9); Immature Granulocytes % 4.4 %; Immature Granulocytes Absolute 0.62 #; Lymphocytes # 3.4 10*3/uL (1.4-4.0); Lymphocytes % 24.3 % (21.2-54.2); Mean Corpuscular HGB Conc 30.8 GM/DL (32-36); Mean Corpuscular Hemoglobin 27 PG (27-34); Mean Corpuscular Volume 87.8 FL (87-102); Mean Platelet Volume 10.7 FL (9.6-12.0); Monocytes # 1.3 10*3/uL (0.11-0.8); NRBC # 0.15 10*3/uL; Neutrophils # 8.7 10*3/uL (1.4-7.4); Neutrophils % 62.2 % (38.7-73.9); Platelet Count 227 T/CUMM (130-400); Red Blood Count 1.48 MC/CUMM (3.8-5.5); Red Cell Distribution Width 20.1 % (9.3-17.3)
[2017-08-21] MEDS ORDERED: HYDROmorphone 2 MG/1 ML VIAL ONE (15:41)
[2017-08-21 15:49] LABS: Lactic Acid 5.4 MMOL/L (0.4-2.0)
[2017-08-21 15:50] LABS: Alanine Aminotransferase 11 U/L (16-61); Albumin 1.9 G/DL (3.4-5.0); Alkaline Phosphatase 50 U/L (45-117); Aspartate Amino Transferase 17 U/L (0-37); Bilirubin,Total < 0.39 MG/DL (0.2-1.0); Blood Urea Nitrogen 57 MG/DL (7-18); Calcium 7.7 MG/DL (8.5-10.1); Glucose 99 MG/DL (74-106); Potassium 3.8 MMOL/L (3.5-5.1); Sodium 143 MMOL/L (136-145); Total Protein 4.8 G/DL (6.4-8.3)
[2017-08-21] MEDS ORDERED: SODIUM CHLORIDE 0.9% 1,000 ML IV PRN (16:13)
[2017-08-21] MEDS ORDERED: guaiFENesin/DM ER 600-30 MG TABLET PO PRN (16:47)
[2017-08-21] MEDS ORDERED: ACETAMINOPHEN 325 MG TABLET PO PRN ×2 (16:47)
[2017-08-21] MEDS ORDERED: DOCUSATE SODIUM 100 MG CAPSULE PO PRN (16:47)
[2017-08-21] MEDS ORDERED: diphenhydrAMINE CAP 25 MG CAPSULE PO PRN (16:47)
[2017-08-21] MEDS ORDERED: TEMAZEPAM 15 MG CAPSULE PO PRN (16:54)
[2017-08-21] MEDS ORDERED: LORazepam 1 MG TABLET PO PRN (16:54)
[2017-08-21 17:52] LABS: Hematocrit 13.1 VOL% (42.0-52.0); Hemoglobin 4.2 GM/DL (14.0-18.0)
[2017-08-21] MEDS: SODIUM CHLORIDE 0.9% 1,000 ML IV SCH (18:12)
[2017-08-21] MEDS: ONDANSETRON 4 MG/2 ML VIAL IV PRN (18:45)
[2017-08-21 19:04] LABS: Apearance,Urine CLEAR (Clear); Bilirubin,Urine Negative (Negative); Blood, Urine Negative (Negative); Glucose,Urine (UA) Negative (Negative); Ketones,Urine Negative (Negative); Mucus,Urine Occasional /LPF (Occasional); Nitrite,Urine Negative (Negative); Protein,Urine Negative; RBC,Urine 1 /HPF (0-4); Urine Color Yellow (Yellow); Urine Specific Gravity 1.015 (1.001-1.035); WBC,Urine 4 /HPF (0-6)
[2017-08-21] MEDS: HYDROmorphone 2 MG/1 ML VIAL IV STA ×2 (19:55→22:17)
[2017-08-21] MEDS: PANTOPRAZOLE 40 MG VIAL IV SCH (20:28)
[2017-08-21] MEDS: METHOCARBAMOL 500 MG TABLET PO SCH (20:29)
[2017-08-21] MEDS: GABAPENTIN 300 MG CAPSULE PO SCH (20:29)
[2017-08-21] MEDS: TERAZOSIN 5 MG CAPSULE PO SCH (20:29)
[2017-08-21] MEDS ORDERED: PANTOPRAZOLE 40 MG TABLET PO SCH (21:00)
[2017-08-22] MEDS: SODIUM CHLORIDE 0.9% 1,000 ML IV SCH ×4 (03:00→23:45)
[2017-08-22 07:13] LABS: Basophils % 0.2 % (0.0-0.8); Eosinophils % 0.2 % (0.00-10.9); Hematocrit 26.2 VOL% (42.0-52.0); Immature Granulocytes % 2.4 %; Lymphocytes # 1.8 10*3/uL (1.4-4.0); Lymphocytes % 14.4 % (21.2-54.2); Mean Corpuscular HGB Conc 32.1 GM/DL (32-36); Mean Corpuscular Hemoglobin 28 PG (27-34); Mean Corpuscular Volume 87.6 FL (87-102); Mean Platelet Volume 10.4 FL (9.6-12.0); NRBC # 0.14 10*3/uL; Neutrophils # 9.3 10*3/uL (1.4-7.4); Neutrophils % 74.8 % (38.7-73.9); Platelet Count 178 T/CUMM (130-400); Red Blood Count 2.99 MC/CUMM (3.8-5.5); White Blood Count 12.4 T/CUMM (4-12)
[2017-08-22 07:17] LABS: Hemoglobin 8.4 GM/DL (14.0-18.0)
[2017-08-22 07:36] LABS: Calcium 7.3 MG/DL (8.5-10.1); Potassium 3.8 MMOL/L (3.5-5.1)
[2017-08-22] MEDS: PANTOPRAZOLE 40 MG VIAL IV SCH ×2 (08:46→19:59)
[2017-08-22 13:09] LABS: Hematocrit 26.2 VOL% (42.0-52.0); Hemoglobin 8.4 GM/DL (14.0-18.0)
[2017-08-22] MEDS: TERAZOSIN 5 MG CAPSULE PO SCH (19:59)
[2017-08-22] MEDS: GABAPENTIN 300 MG CAPSULE PO SCH (19:59)
[2017-08-22] MEDS: ONDANSETRON 4 MG/2 ML VIAL IV PRN (19:59)
[2017-08-22] MEDS: METHOCARBAMOL 500 MG TABLET PO SCH (19:59)
[2017-08-22] MEDS ORDERED: guaiFENesin 200 MG/10 ML UDCUP PO PRN (20:15)
[2017-08-23 05:30] LABS: Basophils % 0.2 % (0.0-0.8); Eosinophils % 0.5 % (0.00-10.9); Hematocrit 28.2 VOL% (42.0-52.0); Hemoglobin 8.9 GM/DL (14.0-18.0); Immature Granulocytes % 1.9 %; Immature Granulocytes Absolute 0.16 #; Lymphocytes # 1.4 10*3/uL (1.4-4.0); Lymphocytes % 17.1 % (21.2-54.2); Mean Corpuscular HGB Conc 31.6 GM/DL (32-36); Mean Corpuscular Hemoglobin 28 PG (27-34); Mean Corpuscular Volume 89.5 FL (87-102); Mean Platelet Volume 10.2 FL (9.6-12.0); Monocytes # 0.6 10*3/uL (0.11-0.8); Monocytes % 7.2 % (1.7-12.7); NRBC # 0.02 10*3/uL; Neutrophils # 6.1 10*3/uL (1.4-7.4); Neutrophils % 73.1 % (38.7-73.9); Platelet Count 228 T/CUMM (130-400); Red Blood Count 3.15 MC/CUMM (3.8-5.5); Red Cell Distribution Width 16.4 % (9.3-17.3); White Blood Count 8.3 T/CUMM (4-12)
[2017-08-23 05:58] LABS: Calcium 7.6 MG/DL (8.5-10.1); Potassium 3.6 MMOL/L (3.5-5.1)
[2017-08-23] MEDS: SODIUM CHLORIDE 0.9% 1,000 ML IV SCH ×2 (06:10→14:55)
[2017-08-23] MEDS: PANTOPRAZOLE 40 MG VIAL IV SCH ×2 (08:35→20:57)
[2017-08-23] MEDS ORDERED: LIDOCAINE 100 MG/5 ML SYRINGE ONE (14:31)
[2017-08-23] MEDS ORDERED: PROPOFOL 200 MG/20 ML VIAL IV ONE (14:31)
[2017-08-23] MEDS ORDERED: ETOMIDATE 20 MG/10 ML VIAL IV ONE (14:31)
[2017-08-23] MEDS: oxyCODONE/ACETAMINOPHEN 5-325 MG TABLET PO PRN ×2 (18:01→20:56)
[2017-08-23] MEDS: GABAPENTIN 300 MG CAPSULE PO SCH (20:56)
[2017-08-23] MEDS: METHOCARBAMOL 500 MG TABLET PO SCH (20:56)
[2017-08-23] MEDS: TERAZOSIN 5 MG CAPSULE PO SCH (20:57)
[2017-08-24] MEDS: PANTOPRAZOLE 40 MG VIAL IV SCH (09:44)
[2017-08-24 12:06] VITALS: BP 96/51
[2017-08-24] MEDS: oxyCODONE/ACETAMINOPHEN 5-325 MG TABLET PO PRN (12:55)
[2017-08-24] MEDS ORDERED: HEPARIN LOCK FLUSH 500 UNIT/5 ML SYRINGE IV ONE (15:02)
== END 2017-08-24 16:06 | disposition home or self-care (01) | DRG 380 ==
LOC: EDUNIT# 12:54 → N.ED 12:54 → EDBD 12:54 → N.EDINP 16:06 → SUATTDRO 16:06 → N.4E 17:05
PROVIDERS: ADMIT Specialist; ATTEND Internal Medicine

== ENCOUNTER 2018-02-10 17:07 | Inpatient (IN) ==
[2018-02-10 18:22] LABS: Basophils # 0.1 10*3/uL (0.0-0.2); Basophils % 1.2 % (0.0-0.8); Eosinophils # 0.5 10*3/uL (0.0-0.87); Eosinophils % 6.8 % (0.00-10.9); Hematocrit 36.8 VOL% (42.0-52.0); Hemoglobin 11.3 GM/DL (14.0-18.0); Immature Granulocytes % 0.3 %; Immature Granulocytes Absolute 0.02 #; Lymphocytes # 1.6 10*3/uL (1.4-4.0); Lymphocytes % 20.3 % (21.2-54.2); Mean Corpuscular HGB Conc 30.7 GM/DL (32-36); Mean Corpuscular Hemoglobin 26 PG (27-34); Mean Corpuscular Volume 84.2 FL (87-102); Mean Platelet Volume 9.3 FL (9.6-12.0); Monocytes # 0.9 10*3/uL (0.11-0.8); Monocytes % 11.2 % (1.7-12.7); Neutrophils # 4.6 10*3/uL (1.4-7.4); Neutrophils % 60.2 % (38.7-73.9); Platelet Count 318 T/CUMM (130-400); Red Blood Count 4.37 MC/CUMM (3.8-5.5); Red Cell Distribution Width 15.7 % (9.3-17.3); White Blood Count 7.7 T/CUMM (4-12)
[2018-02-10 18:43] LABS: Albumin 3.3 G/DL (3.4-5.0); Bilirubin,Total 0.4 MG/DL (0.2-1.0); Calcium 9.1 MG/DL (8.5-10.1); Osmolality,Calculated 277.7 MOS/KG (273-304); Potassium 4.1 MMOL/L (3.5-5.1); Total Protein 8.9 G/DL (6.4-8.3)
[2018-02-10 18:44] LABS: Lactic Acid 1.3 MMOL/L (0.4-2.0)
[2018-02-10 21:31] LABS: Apearance,Urine CLEAR (Clear); Bilirubin,Urine Negative (Negative); Blood, Urine Negative (Negative); Calcium Oxalate Crystals,Urine Occasional /HPF (Few); Glucose,Urine (UA) Negative (Negative); Hyaline Casts,Urine 32 /LPF (0-3); Ketones,Urine Negative (Negative); Mucus,Urine Few /LPF (Occasional); Nitrite,Urine Negative (Negative); Protein,Urine Negative; RBC,Urine 2 /HPF (0-4); Squamous Epithelial Cell,Urine Occasional /HPF (0-10); Urine Color Yellow (Yellow); Urine Specific Gravity 1.019 (1.001-1.035); WBC,Urine 9 /HPF (0-6)
[2018-02-14 09:33] VITALS: BP 133/84
== END 2018-02-14 11:30 | disposition home health service (06) | DRG 690 ==
LOC: N.ED 17:07 → N.EDINP 23:34 → N.4E 02-11 00:14
PROVIDERS: ADMIT Specialist; ATTEND Specialist

== ENCOUNTER 2018-03-14 17:51 | Inpatient (IN) ==
[2018-03-14] MEDS ORDERED: ONDANSETRON 4 MG/2 ML VIAL IV STA (18:46)
[2018-03-14] MEDS ORDERED: SODIUM CHLORIDE 0.9% 1,000 ML IV STA (18:46)
[2018-03-14] MEDS ORDERED: ONDANSETRON 4 MG/2 ML VIAL ONE (18:50)
[2018-03-14 18:51] LABS: Basophils # 0.1 10*3/uL (0.0-0.2); Basophils % 1.2 % (0.0-0.8); Eosinophils # 0.2 10*3/uL (0.0-0.87); Eosinophils % 2.3 % (0.00-10.9); Hematocrit 34.8 VOL% (42.0-52.0); Hemoglobin 10.8 GM/DL (14.0-18.0); Immature Granulocytes % 0.5 %; Immature Granulocytes Absolute 0.04 #; Lymphocytes # 1.2 10*3/uL (1.4-4.0); Lymphocytes % 13.1 % (21.2-54.2); Mean Corpuscular Hemoglobin 26 PG (27-34); Mean Corpuscular Volume 85.1 FL (87-102); Mean Platelet Volume 9.2 FL (9.6-12.0); Monocytes # 0.8 10*3/uL (0.11-0.8); Monocytes % 8.5 % (1.7-12.7); Neutrophils # 6.6 10*3/uL (1.4-7.4); Neutrophils % 74.4 % (38.7-73.9); Platelet Count 302 T/CUMM (130-400); Red Blood Count 4.09 MC/CUMM (3.8-5.5); Red Cell Distribution Width 15.5 % (9.3-17.3); White Blood Count 8.9 T/CUMM (4-12)
[2018-03-14 19:15] LABS: Alanine Aminotransferase 13 U/L (16-61); Albumin 3.2 G/DL (3.4-5.0); Alkaline Phosphatase 115 U/L (45-117); Aspartate Amino Transferase 21 U/L (0-37); Blood Urea Nitrogen 23 MG/DL (7-18); Calcium 9.1 MG/DL (8.5-10.1); Glucose 130 MG/DL (74-106); Osmolality,Calculated 278.8 MOS/KG (273-304); Potassium 4.1 MMOL/L (3.5-5.1); Sodium 137 MMOL/L (136-145); Total Protein 8.6 G/DL (6.4-8.3)
[2018-03-14 19:22] LABS: Lactic Acid 2.6 MMOL/L (0.4-2.0)
[2018-03-14] MEDS ORDERED: guaiFENesin 200 MG/10 ML UDCUP PO STA (20:26)
[2018-03-14] MEDS ORDERED: guaiFENesin 200 MG/10 ML UDCUP ONE (20:28)
[2018-03-14] MEDS ORDERED: ACETAMINOPHEN 325 MG TABLET PO PRN (23:12)
[2018-03-14] MEDS: SODIUM CHLORIDE 0.9% 1,000 ML IV SCH (23:36)
[2018-03-14] MEDS: guaiFENesin 200 MG/10 ML UDCUP PO PRN (23:37)
[2018-03-14] MEDS: ONDANSETRON 4 MG/2 ML VIAL IV PRN (23:37)
[2018-03-15] MEDS ORDERED: BENZONATATE 100 MG CAPSULE PO PRN (01:30)
[2018-03-15 03:17] LABS: Basophils # 0.1 10*3/uL (0.0-0.2); Basophils % 0.5 % (0.0-0.8); Eosinophils % 0.4 % (0.00-10.9); Hematocrit 30.3 VOL% (42.0-52.0); Hemoglobin 9.6 GM/DL (14.0-18.0); Immature Granulocytes % 0.5 %; Immature Granulocytes Absolute 0.06 #; Lymphocytes # 0.9 10*3/uL (1.4-4.0); Lymphocytes % 7.6 % (21.2-54.2); Mean Corpuscular HGB Conc 31.7 GM/DL (32-36); Mean Corpuscular Hemoglobin 27 PG (27-34); Mean Corpuscular Volume 86.1 FL (87-102); Mean Platelet Volume 9.7 FL (9.6-12.0); Monocytes # 0.9 10*3/uL (0.11-0.8); Neutrophils # 9.4 10*3/uL (1.4-7.4); Platelet Count 310 T/CUMM (130-400); Red Blood Count 3.52 MC/CUMM (3.8-5.5); Red Cell Distribution Width 15.6 % (9.3-17.3); White Blood Count 11.3 T/CUMM (4-12)
[2018-03-15] MEDS: guaiFENesin 200 MG/10 ML UDCUP PO PRN (03:43)
[2018-03-15 03:46] LABS: Folate 14.6 NG/ML (5.4-24.0); Vitamin B12 514 PG/ML (211-911)
[2018-03-15 04:19] LABS: Sedimentation Rate-Westergren 50 MM/HR (0-20)
[2018-03-15 05:24] LABS: Apearance,Urine CLEAR (Clear); Bilirubin,Urine Negative (Negative); Blood, Urine Negative (Negative); Glucose,Urine (UA) Negative (Negative); Ketones,Urine 5 mg/dL (Negative); Mucus,Urine Occasional /LPF (Occasional); Nitrite,Urine Negative (Negative); Protein,Urine Negative; RBC,Urine 2 /HPF (0-4); Urine Color Yellow (Yellow); Urine Specific Gravity 1.018 (1.001-1.035)
[2018-03-15] MEDS: ONDANSETRON 4 MG/2 ML VIAL IV PRN ×2 (07:09→13:05)
[2018-03-15 10:07] LABS: % Iron Saturation 4.9 % (18-50); Calcium 8.2 MG/DL (8.5-10.1); Ferritin 68.1 ng/ml (26-388); Osmolality,Calculated 280.4 MOS/KG (273-304); Potassium 3.7 MMOL/L (3.5-5.1)
[2018-03-15] MEDS ORDERED: METOCLOPRAMIDE 10 MG/2 ML VIAL IV PRN (10:30)
[2018-03-15] MEDS ORDERED: BUPIVACAINE MPF 0.25% /EPI 30 ML VIAL ONE (11:25)
[2018-03-15] MEDS ORDERED: LIDOCAINE 1%/EPI INJ 20 ML VIAL ONE (11:25)
[2018-03-15] MEDS ORDERED: PROPOFOL 200 MG/20 ML VIAL IV ONE (12:20)
[2018-03-15] MEDS: LEVOFLOXACIN INJ 500 MG in PREMIX 1 EACH IV SCH (12:51)
[2018-03-15] MEDS: SODIUM CHLORIDE 0.9% 1,000 ML IV SCH ×2 (13:10→23:12)
[2018-03-15] MEDS: VANCOMYCIN INJ 1,000 MG in SODIUM CHLORIDE 0.9% 250 ML IV SCH (13:13)
[2018-03-15] MEDS: METHOCARBAMOL 750 MG TABLET PO SCH ×2 (15:45→20:20)
[2018-03-15] MEDS ORDERED: LOPERAMIDE 2 MG CAPSULE PO PRN (16:18)
[2018-03-15] MEDS: ENOXAPARIN 40 MG/0.4 ML SYRINGE SUBCUT SCH (16:56)
[2018-03-15] MEDS: TEMAZEPAM 7.5 MG CAPSULE PO SCH (20:21)
[2018-03-15] MEDS: TAMSULOSIN 0.4 MG CAPSULE PO SCH (20:21)
[2018-03-15] MEDS: GABAPENTIN 300 MG CAPSULE PO SCH (20:21)
[2018-03-16 07:54] LABS: Hemoglobin A1 (Alkaline) 97.4 % (96.5-98.5); Hemoglobin A2 (Alkaline) 2.6 % (1.5-3.5)
[2018-03-16] MEDS: ENOXAPARIN 40 MG/0.4 ML SYRINGE SUBCUT SCH (08:47)
[2018-03-16] MEDS: METHOCARBAMOL 750 MG TABLET PO SCH ×2 (08:47→21:20)
[2018-03-16] MEDS: SODIUM CHLORIDE 0.9% 1,000 ML IV SCH ×2 (08:50→09:05)
[2018-03-16] MEDS: guaiFENesin/DM ER 600-30 MG TABLET PO PRN (08:54)
[2018-03-16] MEDS: LEVOFLOXACIN INJ 500 MG in PREMIX 1 EACH IV SCH (10:56)
[2018-03-16] MEDS: VANCOMYCIN INJ 1,000 MG in SODIUM CHLORIDE 0.9% 250 ML IV SCH (12:16)
[2018-03-16] MEDS: TEMAZEPAM 7.5 MG CAPSULE PO SCH (21:20)
[2018-03-16] MEDS: TAMSULOSIN 0.4 MG CAPSULE PO SCH (21:20)
[2018-03-16] MEDS: GABAPENTIN 300 MG CAPSULE PO SCH (21:20)
[2018-03-16] MEDS: guaiFENesin 200 MG/10 ML UDCUP PO PRN (23:06)
[2018-03-17] MEDS: SODIUM CHLORIDE 0.9% 1,000 ML IV SCH ×4 (00:31→20:52)
[2018-03-17] MEDS: guaiFENesin 200 MG/10 ML UDCUP PO PRN ×4 (04:53→21:30)
[2018-03-17] MEDS: ENOXAPARIN 40 MG/0.4 ML SYRINGE SUBCUT SCH (08:50)
[2018-03-17] MEDS: METHOCARBAMOL 750 MG TABLET PO SCH ×2 (08:50→20:50)
[2018-03-17 09:46] LABS: Basophils % 0.7 % (0.0-0.8); Eosinophils # 0.3 10*3/uL (0.0-0.87); Eosinophils % 5.4 % (0.00-10.9); Hematocrit 27.9 VOL% (42.0-52.0); Hemoglobin 8.7 GM/DL (14.0-18.0); Immature Granulocytes % 0.7 %; Immature Granulocytes Absolute 0.04 #; Lymphocytes # 1.1 10*3/uL (1.4-4.0); Lymphocytes % 17.6 % (21.2-54.2); Mean Corpuscular HGB Conc 31.2 GM/DL (32-36); Mean Corpuscular Hemoglobin 26 PG (27-34); Mean Corpuscular Volume 83.8 FL (87-102); Mean Platelet Volume 9.1 FL (9.6-12.0); Monocytes # 0.7 10*3/uL (0.11-0.8); Monocytes % 11.8 % (1.7-12.7); Neutrophils # 3.9 10*3/uL (1.4-7.4); Neutrophils % 63.8 % (38.7-73.9); Platelet Count 243 T/CUMM (130-400); Red Blood Count 3.33 MC/CUMM (3.8-5.5); Red Cell Distribution Width 15.3 % (9.3-17.3); White Blood Count 6.1 T/CUMM (4-12)
[2018-03-17] MEDS: DOCUSATE SODIUM 100 MG CAPSULE PO SCH ×2 (09:54→20:52)
[2018-03-17] MEDS: POLYETHYLENE GLYCOL POWDER 17 GM PACK PO SCH (09:54)
[2018-03-17 10:18] LABS: Alanine Aminotransferase < 9 U/L (16-61); Albumin 2.2 G/DL (3.4-5.0); Alkaline Phosphatase 75 U/L (45-117); Aspartate Amino Transferase 13 U/L (0-37); Bilirubin,Total < 0.39 MG/DL (0.2-1.0); Blood Urea Nitrogen 8 MG/DL (7-18); Calcium 7.9 MG/DL (8.5-10.1); Glucose 108 MG/DL (74-106); Osmolality,Calculated 281.1 MOS/KG (273-304); Potassium 3.4 MMOL/L (3.5-5.1); Sodium 142 MMOL/L (136-145); Total Protein 6.4 G/DL (6.4-8.3)
[2018-03-17] MEDS: LEVOFLOXACIN INJ 500 MG in PREMIX 1 EACH IV SCH (11:20)
[2018-03-17] MEDS: VANCOMYCIN INJ 1,000 MG in SODIUM CHLORIDE 0.9% 250 ML IV SCH (12:25)
[2018-03-17] MEDS: GABAPENTIN 300 MG CAPSULE PO SCH (20:50)
[2018-03-17] MEDS: TEMAZEPAM 7.5 MG CAPSULE PO SCH (20:50)
[2018-03-17] MEDS: TAMSULOSIN 0.4 MG CAPSULE PO SCH (20:50)
[2018-03-17] MEDS: guaiFENesin/DM ER 600-30 MG TABLET PO PRN (22:52)
[2018-03-18] MEDS: guaiFENesin 200 MG/10 ML UDCUP PO PRN ×2 (01:24→20:40)
[2018-03-18] MEDS: METHOCARBAMOL 750 MG TABLET PO SCH ×2 (08:41→20:37)
[2018-03-18] MEDS: POLYETHYLENE GLYCOL POWDER 17 GM PACK PO SCH (08:41)
[2018-03-18] MEDS: DOCUSATE SODIUM 100 MG CAPSULE PO SCH ×2 (08:41→20:38)
[2018-03-18] MEDS: ENOXAPARIN 40 MG/0.4 ML SYRINGE SUBCUT SCH (08:41)
[2018-03-18] MEDS ORDERED: SODIUM CHLORIDE 0.9% 1,000 ML IV PRN (13:23)
[2018-03-18] MEDS: LEVOFLOXACIN INJ 500 MG in PREMIX 1 EACH IV SCH (13:29)
[2018-03-18] MEDS: VANCOMYCIN INJ 1,000 MG in SODIUM CHLORIDE 0.9% 250 ML IV SCH (15:33)
[2018-03-18] MEDS ORDERED: POTASSIUM CHLORIDE 20 MEQ TABLET PO ONE (15:59)
[2018-03-18] MEDS: VANCOMYCIN INJ 750 MG in SODIUM CHLORIDE 0.9% 250 ML IV SCH (17:10)
[2018-03-18] MEDS: SODIUM CHLORIDE 0.9% 1,000 ML IV SCH (19:06)
[2018-03-18] MEDS: TEMAZEPAM 7.5 MG CAPSULE PO SCH (20:38)
[2018-03-18] MEDS: GABAPENTIN 300 MG CAPSULE PO SCH (20:38)
[2018-03-18] MEDS: TAMSULOSIN 0.4 MG CAPSULE PO SCH (20:38)
[2018-03-19] MEDS: SODIUM CHLORIDE 0.9% 1,000 ML IV SCH (03:42)
[2018-03-19] MEDS: VANCOMYCIN INJ 750 MG in SODIUM CHLORIDE 0.9% 250 ML IV SCH (03:42)
[2018-03-19 05:17] LABS: Basophils % 0.6 % (0.0-0.8); Eosinophils # 0.4 10*3/uL (0.0-0.87); Eosinophils % 6.3 % (0.00-10.9); Hemoglobin 8.9 GM/DL (14.0-18.0); Immature Granulocytes % 0.3 %; Immature Granulocytes Absolute 0.02 #; Lymphocytes # 1.3 10*3/uL (1.4-4.0); Lymphocytes % 21.2 % (21.2-54.2); Mean Corpuscular HGB Conc 30.7 GM/DL (32-36); Mean Corpuscular Hemoglobin 26 PG (27-34); Mean Platelet Volume 10.9 FL (9.6-12.0); Monocytes # 0.7 10*3/uL (0.11-0.8); Monocytes % 10.9 % (1.7-12.7); Neutrophils # 3.8 10*3/uL (1.4-7.4); Neutrophils % 60.7 % (38.7-73.9); Platelet Count 284 T/CUMM (130-400); Red Blood Count 3.41 MC/CUMM (3.8-5.5); Red Cell Distribution Width 15.8 % (9.3-17.3); White Blood Count 6.3 T/CUMM (4-12)
[2018-03-19 05:37] LABS: Calcium 8.3 MG/DL (8.5-10.1)
[2018-03-19 05:57] LABS: % Iron Saturation 9.4 % (18-50); Ferritin 84.7 ng/ml (26-388)
[2018-03-19] MEDS: DOCUSATE SODIUM 100 MG CAPSULE PO SCH (09:17)
[2018-03-19] MEDS: ENOXAPARIN 40 MG/0.4 ML SYRINGE SUBCUT SCH (09:17)
[2018-03-19] MEDS: POLYETHYLENE GLYCOL POWDER 17 GM PACK PO SCH (09:17)
[2018-03-19 09:36] LABS: Folate 9.1 NG/ML (5.4-24.0); Vitamin B12 529 PG/ML (211-911)
[2018-03-19 09:56] LABS: Sedimentation Rate-Westergren 72 MM/HR (0-20)
[2018-03-19] MEDS: METHOCARBAMOL 750 MG TABLET PO SCH (10:30)
[2018-03-19] MEDS: LEVOFLOXACIN INJ 500 MG in PREMIX 1 EACH IV SCH (11:40)
[2018-03-19] MEDS: ONDANSETRON 4 MG/2 ML VIAL IV PRN (12:03)
[2018-03-19 12:27] VITALS: BP 121/60
[2018-03-19] MEDS: guaiFENesin 200 MG/10 ML UDCUP PO PRN (13:21)
[2018-03-20] MEDS ORDERED: FERROUS SULFATE 325 MG TABLET PO SCH (09:00)
[2018-03-21 09:24] LABS: Hemoglobin A1 (Alkaline) 97.8 % (96.5-98.5); Hemoglobin A2 (Alkaline) 2.2 % (1.5-3.5)
== END 2018-03-19 15:15 | disposition home health service (06) | DRG 314 ==
LOC: N.ED 17:51 → N.EDINP 20:09 → N.4E 22:00
PROVIDERS: ADMIT Hospitalist; ATTEND Hospitalist

== ENCOUNTER 2018-03-29 10:12 | Inpatient (IN) ==
[2018-03-29] MEDS ORDERED: SODIUM CHLORIDE 0.9% 1,000 ML IV STA (10:27)
[2018-03-29 12:26] LABS: Basophils # 0.1 10*3/uL (0.0-0.2); Basophils % 1.1 % (0.0-0.8); Eosinophils # 0.3 10*3/uL (0.0-0.87); Eosinophils % 4.3 % (0.00-10.9); Hematocrit 34.9 VOL% (42.0-52.0); Hemoglobin 10.4 GM/DL (14.0-18.0); Immature Granulocytes % 0.3 %; Immature Granulocytes Absolute 0.02 #; Lymphocytes # 1.7 10*3/uL (1.4-4.0); Lymphocytes % 26.1 % (21.2-54.2); Mean Corpuscular HGB Conc 29.8 GM/DL (32-36); Mean Corpuscular Hemoglobin 26 PG (27-34); Mean Corpuscular Volume 86.2 FL (87-102); Monocytes # 0.6 10*3/uL (0.11-0.8); Monocytes % 8.5 % (1.7-12.7); Neutrophils # 3.9 10*3/uL (1.4-7.4); Neutrophils % 59.7 % (38.7-73.9); Platelet Count 462 T/CUMM (130-400); Red Blood Count 4.05 MC/CUMM (3.8-5.5); Red Cell Distribution Width 15.9 % (9.3-17.3); White Blood Count 6.6 T/CUMM (4-12)
[2018-03-29 12:54] LABS: Albumin 2.8 G/DL (3.4-5.0); Bilirubin,Total 0.4 MG/DL (0.2-1.0); Calcium 8.4 MG/DL (8.5-10.1); Osmolality,Calculated 272.8 MOS/KG (273-304); Potassium 4.2 MMOL/L (3.5-5.1); Total Protein 8.5 G/DL (6.4-8.3)
[2018-03-29 13:29] LABS: Lactic Acid 1.5 MMOL/L (0.4-2.0)
[2018-03-29] MEDS ORDERED: ONDANSETRON 4 MG/2 ML VIAL IV PRN (15:21)
[2018-03-29] MEDS ORDERED: guaiFENesin/DM ER 600-30 MG TABLET PO PRN (15:21)
[2018-03-29] MEDS ORDERED: ACETAMINOPHEN 325 MG TABLET PO PRN (15:21)
[2018-03-29] MEDS ORDERED: LOPERAMIDE 2 MG CAPSULE PO PRN (15:23)
[2018-03-29] MEDS ORDERED: LOPERAMIDE 2 MG CAPSULE PO STA (15:23)
[2018-03-29] MEDS: SODIUM CHLORIDE 0.9% 1,000 ML IV SCH (16:00)
[2018-03-29] MEDS ORDERED: oxyCODONE/ACETAMINOPHEN 5-325 MG TABLET PO PRN (17:22)
[2018-03-29] MEDS: GABAPENTIN 300 MG CAPSULE PO SCH (20:56)
[2018-03-29] MEDS: TAMSULOSIN 0.4 MG CAPSULE PO SCH (20:56)
[2018-03-29] MEDS: TEMAZEPAM 7.5 MG CAPSULE PO SCH (20:56)
[2018-03-29] MEDS: METHOCARBAMOL 750 MG TABLET PO SCH (20:57)
[2018-03-29] MEDS: HYDROcodone/HOMATROPINE 5 ML UDCUP PO PRN (21:00)
[2018-03-30] MEDS: SODIUM CHLORIDE 0.9% 1,000 ML IV SCH (06:04)
[2018-03-30 06:43] LABS: Basophils # 0.1 10*3/uL (0.0-0.2); Basophils % 1.2 % (0.0-0.8); Eosinophils # 0.3 10*3/uL (0.0-0.87); Eosinophils % 5.6 % (0.00-10.9); Hematocrit 28.8 VOL% (42.0-52.0); Hemoglobin 8.5 GM/DL (14.0-18.0); Immature Granulocytes % 0.5 %; Immature Granulocytes Absolute 0.03 #; Lymphocytes # 1.5 10*3/uL (1.4-4.0); Lymphocytes % 24.9 % (21.2-54.2); Mean Corpuscular HGB Conc 29.5 GM/DL (32-36); Mean Corpuscular Hemoglobin 26 PG (27-34); Mean Corpuscular Volume 86.5 FL (87-102); Mean Platelet Volume 9.1 FL (9.6-12.0); Monocytes # 0.6 10*3/uL (0.11-0.8); Monocytes % 9.7 % (1.7-12.7); Neutrophils # 3.5 10*3/uL (1.4-7.4); Neutrophils % 58.1 % (38.7-73.9); Platelet Count 409 T/CUMM (130-400); Red Blood Count 3.33 MC/CUMM (3.8-5.5); Red Cell Distribution Width 15.5 % (9.3-17.3); White Blood Count 6.1 T/CUMM (4-12)
[2018-03-30 07:05] LABS: Alanine Aminotransferase < 9 U/L (16-61); Albumin 2.4 G/DL (3.4-5.0); Alkaline Phosphatase 82 U/L (45-117); Aspartate Amino Transferase 14 U/L (0-37); Blood Urea Nitrogen 15 MG/DL (7-18); Calcium 8.1 MG/DL (8.5-10.1); Osmolality,Calculated 272.7 MOS/KG (273-304); Potassium 4.4 MMOL/L (3.5-5.1); Sodium 138 MMOL/L (136-145); Total Protein 7.1 G/DL (6.4-8.3)
[2018-03-30 07:09] LABS: Glucose 36 MG/DL (74-106)
[2018-03-30] MEDS ORDERED: DEXTROSE 5% 1,000 ML IV SCH (07:30)
[2018-03-30] MEDS: METHOCARBAMOL 750 MG TABLET PO SCH ×2 (08:31→21:07)
[2018-03-30] MEDS: FERROUS SULFATE 325 MG TABLET PO SCH (08:32)
[2018-03-30] MEDS: PANTOPRAZOLE 40 MG TABLET PO SCH (08:32)
[2018-03-30] MEDS: DEXTROSE 5% NACL 0.9% 1,000 ML IV SCH ×2 (08:33→21:06)
[2018-03-30] MEDS: HYDROcodone/HOMATROPINE 5 ML UDCUP PO PRN (15:19)
[2018-03-30] MEDS: TEMAZEPAM 7.5 MG CAPSULE PO SCH (21:07)
[2018-03-30] MEDS: GABAPENTIN 300 MG CAPSULE PO SCH (21:07)
[2018-03-30] MEDS: TAMSULOSIN 0.4 MG CAPSULE PO SCH (21:07)
[2018-03-30] MEDS: DESITIN 4OZ/NYSTATIN 15 GRAM MIXTURE PASTE TOP SCH (21:08)
[2018-03-31 04:32] LABS: Basophils % 0.8 % (0.0-0.8); Eosinophils # 0.4 10*3/uL (0.0-0.87); Eosinophils % 8.1 % (0.00-10.9); Hematocrit 29.9 VOL% (42.0-52.0); Immature Granulocytes % 0.4 %; Immature Granulocytes Absolute 0.02 #; Lymphocytes # 1.4 10*3/uL (1.4-4.0); Lymphocytes % 27.6 % (21.2-54.2); Mean Corpuscular HGB Conc 30.1 GM/DL (32-36); Mean Corpuscular Hemoglobin 26 PG (27-34); Mean Corpuscular Volume 85.9 FL (87-102); Mean Platelet Volume 8.7 FL (9.6-12.0); Monocytes # 0.5 10*3/uL (0.11-0.8); Monocytes % 9.8 % (1.7-12.7); Neutrophils # 2.6 10*3/uL (1.4-7.4); Neutrophils % 53.3 % (38.7-73.9); Platelet Count 391 T/CUMM (130-400); Red Blood Count 3.48 MC/CUMM (3.8-5.5); Red Cell Distribution Width 15.5 % (9.3-17.3); White Blood Count 4.9 T/CUMM (4-12)
[2018-03-31 04:53] LABS: Alanine Aminotransferase < 9 U/L (16-61); Albumin 2.2 G/DL (3.4-5.0); Alkaline Phosphatase 78 U/L (45-117); Aspartate Amino Transferase 13 U/L (0-37); Blood Urea Nitrogen 9 MG/DL (7-18); Glucose 92 MG/DL (74-106); Osmolality,Calculated 275.5 MOS/KG (273-304); Potassium 3.8 MMOL/L (3.5-5.1); Sodium 139 MMOL/L (136-145); Total Protein 6.8 G/DL (6.4-8.3)
[2018-03-31] MEDS: METHOCARBAMOL 750 MG TABLET PO SCH ×2 (09:10→21:07)
[2018-03-31] MEDS: DESITIN 4OZ/NYSTATIN 15 GRAM MIXTURE PASTE TOP SCH ×2 (09:11→21:08)
[2018-03-31] MEDS: PANTOPRAZOLE 40 MG TABLET PO SCH (09:11)
[2018-03-31] MEDS: FERROUS SULFATE 325 MG TABLET PO SCH (09:11)
[2018-03-31] MEDS: TAMSULOSIN 0.4 MG CAPSULE PO SCH (21:07)
[2018-03-31] MEDS: GABAPENTIN 300 MG CAPSULE PO SCH (21:07)
[2018-03-31] MEDS: TEMAZEPAM 7.5 MG CAPSULE PO SCH (21:07)
[2018-03-31] MEDS: HYDROcodone/HOMATROPINE 5 ML UDCUP PO PRN (23:06)
[2018-04-01] MEDS: DEXTROSE 5% NACL 0.9% 1,000 ML IV SCH (03:40)
[2018-04-01 04:11] LABS: Basophils % 0.8 % (0.0-0.8); Eosinophils # 0.4 10*3/uL (0.0-0.87); Eosinophils % 7.7 % (0.00-10.9); Hematocrit 29.1 VOL% (42.0-52.0); Hemoglobin 8.5 GM/DL (14.0-18.0); Immature Granulocytes % 0.2 %; Immature Granulocytes Absolute 0.01 #; Lymphocytes # 1.4 10*3/uL (1.4-4.0); Lymphocytes % 27.1 % (21.2-54.2); Mean Corpuscular HGB Conc 29.2 GM/DL (32-36); Mean Corpuscular Hemoglobin 25 PG (27-34); Mean Corpuscular Volume 86.1 FL (87-102); Mean Platelet Volume 9.3 FL (9.6-12.0); Monocytes # 0.5 10*3/uL (0.11-0.8); Monocytes % 9.4 % (1.7-12.7); Neutrophils # 2.9 10*3/uL (1.4-7.4); Neutrophils % 54.8 % (38.7-73.9); Platelet Count 395 T/CUMM (130-400); Red Blood Count 3.38 MC/CUMM (3.8-5.5); Red Cell Distribution Width 15.7 % (9.3-17.3); White Blood Count 5.3 T/CUMM (4-12)
[2018-04-01] MEDS: PANTOPRAZOLE 40 MG TABLET PO SCH (08:31)
[2018-04-01] MEDS: METHOCARBAMOL 750 MG TABLET PO SCH (08:31)
[2018-04-01] MEDS: FERROUS SULFATE 325 MG TABLET PO SCH (08:31)
[2018-04-01] MEDS: DESITIN 4OZ/NYSTATIN 15 GRAM MIXTURE PASTE TOP SCH (08:31)
[2018-04-01 12:23] VITALS: BP 131/60
== END 2018-04-01 12:40 | disposition home health service (06) | DRG 392 ==
LOC: N.ED 10:12 → N.EDINP 10:12 → N.4E 16:12 → UNDODISOB 04-01 12:40
PROVIDERS: ADMIT Internal Medicine; ATTEND Internal Medicine